=== PATIENT | male | born 1960 | race Caucasian/White ===

== ENCOUNTER → 2016-12-14 | Outpatient (CLI) | payer BC ==
[~2016-12-14] MED LIST: ACET-1256 PO; ASPEC81 PO; ASPI81TA28 PO; ATOR-24 PO; LEVAQUIN PO; LISI-729 PO; LPR25 PO; LPT40 PO; LSN5 PO; PRED5PAK3 PO; PREDPOW63 PO; RBTDAC10 PO; SYMIN160 INH; TRAM-10 PO; TRAM-453 PO
== END | disposition home or self-care (01) ==
LOC: C.LABSPEC 12:22
PROVIDERS: ATTEND Internal Medicine
DX: Z12.11 Encounter for screening for malignant neoplasm of colon (principal)

== ENCOUNTER 2017-03-23 20:48 | Emergency (ER) | payer BC ==
[~2017-03-23] VITALS: Ht 177.8 cm; Wt 100.0 kg
[~2017-03-23 20:48] MED LIST changes: -ACET-1256 PO; -ASPI81TA28 PO; -ATOR-24 PO; -LEVAQUIN PO; -LISI-729 PO; -PREDPOW63 PO; -TRAM-453 PO
[2017-03-23 20:52] VITALS: TEMP 36.8; Ht 177.8 cm; Wt 100.0 kg
[2017-03-23] MEDS ORDERED: ASPI81TA28 PO (21:11)
[2017-03-23] MEDS ORDERED: LEVAQUIN PO (21:11)
[2017-03-23] MEDS ORDERED: PREDPOW63 PO (21:11)
[2017-03-23] MEDS ORDERED: SODIUM CHLORIDE 0.9% 1000ML 1,000 ML IV SCH (21:45)
--- NOTE | 2017-03-23 22:10 | DIAGNOSTIC IMAGING REPORT ---
CHEST ONE VIEW PORTABLE HISTORY: cough COMPARISON: Chest 04/30/2016. FINDINGS: The lungs are clear. Cardiac silhouette is normal in size. No pleural effusions. No pneumothorax. IMPRESSION: No acute process. Electronically signed by: Ravi Little M.D. 03/23/2017 10:09 PM Dictated Date/Time: 03/23/2017 10:08 PM
[2017-03-23] MEDS ORDERED: IBUPROFEN 600 MG TAB PO STA (22:19)
[2017-03-23 22:20] LABS: BASO % 0.3 %; BASO ABS # 0.04 K/uL (0-0.2); COMPLETE YES; EOS % 0.8 %; HEMATOCRIT 49.7 % (42-52); IG% 0.3 %; LYMPH % 24.8 %; LYMPH ABS # 3.12 K/uL (1.2-3.4); MEAN CELL VOLUME 94.7 fL (80-100); MEAN CORPUSCULAR HGB CONC 33.8 g/dl (32-36); MEAN PLATELET VOLUME 9.4 fL (7.4-10.4); MONO % 12.7 %; NEUT % 61.1 %; PLATELET COUNT 293 K/uL (130-400); RED BLOOD COUNT 5.25 M/uL (4.7-6.1); WHITE BLOOD COUNT 12.58 K/uL (4.8-10.8)
[2017-03-23 22:32] LABS: ALT/SGPT 25 U/L (12-78); BLOOD UREA NITROGEN 19 mg/dl (7-18); BUN/CREATININE RATIO 15.9 (10-20); CARBON DIOXIDE 26 mmol/L (21-32); CHLORIDE 110 mmol/L (98-107); GLUCOSE 100 mg/dl (70-99); MAGNESIUM 2.5 mg/dl (1.8-2.4); POTASSIUM 3.9 mmol/L (3.5-5.1); SODIUM 142 mmol/L (136-145)
[2017-03-23 22:35] LABS: ALKALINE PHOSPHATASE 79 U/L (45-117); AST/SGOT 15 U/L (15-37)
[2017-03-23 22:37] LABS: CALCIUM 9.3 mg/dl (8.5-10.1)
--- NOTE | 2017-03-23 22:58 | EMERGENCY ROOM VISIT NOTE ---
History Report prepared by Titus: Ashley Garvin Under the Supervision of: Marshall PalumboO. First contact with patient: 21:38 Chief Complaint: PAIN (GENERALIZED) Stated Complaint: WEAKNESS,SICK IN STOMACH,PAIN IN SHOULDERS,ARMS,LE History of Present Illness The patient is a 56 year old male who presents to the Emergency Room with complaints of constant generalized weakness beginning last night. He states that he has muscular weakness in his legs, arms, and shoulders that is sharp and painful. The pain waxes and wanes. The patient had bronchitis over the weekend. He denies any urinary problems, coughing up, or fever. He has no known insect or tick bites. He says he has been drinking adequately, and feels hydrated. The patient was started on antibiotics and prednisone last week for cold-like symptoms. Source of History: patient Onset: last night Position: other (generalized) Quality: other (weakness) Timing: constant Associated Symptoms: No fevers, No cough, No urinary symptoms Note: The patient also complains of body pains. Review of Systems See HPI for pertinent positives and negatives. A total of ten systems were reviewed and were otherwise negative. Past Medical & Surgical Medical Problems: (1) Bronchitis (2) Hyperlipidemia (3) NSTEMI,ASTHMATIC BRONCHITIS (4) Pneumonia Family History No pertinent family history has been recorded. Social History Smoking Status: Never Smoker Alcohol Use: none Drug Use: none Marital Status: Housing Status: lives with family Occupation Status: employed Current/Historical Medications Scheduled Aspirin (Aspirin Ec), 81 MG PO DAILY Atorvastatin (Atorvastatin Calcium), 40 MG PO QAM Budesonide/Formoterol Fumarate (Symbicort 160/4.5 Inhaler ), 2 PUFFS INH QID Lisinopril (Lisinopril), 5 MG PO QAM [Levaquin], 1 TAB PO DAILY [Prednisone], 1 TAB PO DIRECTED Scheduled PRN Tramadol (Ultram), 50 MG PO Q8H PRN for Pain Allergies Coded Allergies: No Known Allergies (Verified , 03/23/17) Physical Exam Vital Signs Date Time Temp Pulse Resp B/P (MAP) Pulse Ox O2 Delivery O2 Flow Rate FiO2 03/23/17 23:43 84 18 174/110 94 Room Air 03/23/17 22:15 79 03/23/17 22:04 82 18 162/90 97 Room Air 03/23/17 22:04 Room Air 03/23/17 20:52 36.8 95 20 161/105 94 Room Air Physical Exam GENERAL: Awake, alert, well-appearing. Weakness. HENT: Normocephalic, atraumatic. Oropharynx unremarkable. EYES: Normal conjunctiva. Sclera non-icteric. NECK: Supple. No nuchal rigidity. FROM. No JVD. RESPIRATORY: Clear to auscultation. CARDIAC: Regular rate, normal rhythm. Extremities warm and well perfused. Pulses equal. ABDOMEN: Soft, non-distended. No tenderness to palpation. No rebound or guarding. No masses. RECTAL: Deferred. MUSCULOSKELETAL: Chest examination reveals no tenderness. The back is symmetrical on inspection without obvious abnormality. There is no CVA tenderness to palpation. No joint edema. Muscle aches. LOWER EXTREMITIES: Calves are equal size bilaterally and non-tender. No edema. No discoloration. NEURO: Normal sensorium. No sensory or motor deficits noted. SKIN: No rash or jaundice noted. Medical Decision & Procedures ER Provider Diagnostic Interpretation: X-ray: Per my interpretation, radiologist review. CHEST ONE VIEW PORTABLE HISTORY: cough COMPARISON: Chest 04/30/2016. FINDINGS: The lungs are clear. Cardiac silhouette is normal in size. No pleural effusions. No pneumothorax. IMPRESSION: No acute process. Electronically signed by: Ravi Little M.D. 03/23/2017 10:09 PM Dictated Date/Time: 03/23/2017 10:08 PM Laboratory Results 03/23/17 21:52 Red Blood Count 5.25, Mean Corpuscular Volume 94.7, Mean Corpuscular Hemoglobin 32.0, Mean Corpuscular Hemoglobin Concent 33.8, Mean Platelet Volume 9.4, Neutrophils (%) (Auto) 61.1, Lymphocytes (%) (Auto) 24.8, Monocytes (%) (Auto) 12.7, Eosinophils (%) (Auto) 0.8, Basophils (%) (Auto) 0.3, Neutrophils # (Auto ) 7.68, Lymphocytes # (Auto) 3.12, Monocytes # (Auto) 1.60, Eosinophils # (Auto ) 0.10, Basophils # (Auto) 0.04 03/23/17 21:52 Test 03/23/17 21:52 03/23/17 22:00 White Blood Count 12.58 K/uL (4.8-10.8) Red Blood Count 5.25 M/uL (4.7-6.1) Hemoglobin 16.8 g/dL (14.0-18.0) Hematocrit 49.7 % (42-52) Mean Corpuscular Volume 94.7 fL (80-100) Mean Corpuscular Hemoglobin 32.0 pg (25-34) Mean Corpuscular Hemoglobin Concent 33.8 g/dl (32-36) Platelet Count 293 K/uL (130-400) Mean Platelet Volume 9.4 fL (7.4-10.4) Neutrophils (%) (Auto) 61.1 % Lymphocytes (%) (Auto) 24.8 % Monocytes (%) (Auto) 12.7 % Eosinophils (%) (Auto) 0.8 % Basophils (%) (Auto) 0.3 % Neutrophils # (Auto) 7.68 K/uL (1.4-6.5) Lymphocytes # (Auto) 3.12 K/uL (1.2-3.4) Monocytes # (Auto) 1.60 K/uL (0.11-0.59) Eosinophils # (Auto) 0.10 K/uL (0-0.5) Basophils # (Auto) 0.04 K/uL (0-0.2) RDW Standard Deviation 41.9 fL (36.4-46.3) RDW Coefficient of Variation 12.2 % (11.5-14.5) Immature Granulocyte % (Auto) 0.3 % Immature Granulocyte # (Auto) 0.04 K/uL (0.00-0.02) Urine Color YELLOW Urine Appearance CLEAR (CLEAR) Urine pH 8.5 (4.5-7.5) Urine Specific Tate 1.020 (1.000-1.030) Urine Protein NEG (NEG) Urine Glucose (UA) NEG (NEG) Urine Ketones NEG (NEG) Urine Occult Blood NEG (NEG) Urine Nitrite NEG (NEG) Urine Bilirubin NEG (NEG) Urine Urobilinogen NEG (NEG) Urine Leukocyte Esterase NEG (NEG) Anion Gap 6.0 mmol/L (3-11) Est Creatinine Clear Calc Drug Dose 81.5 ml/min Estimated GFR () 77.9 Estimated GFR (Non- 67.2 BUN/Creatinine Ratio 15.9 (10-20) Calcium Level 9.3 mg/dl (8.5-10.1) Magnesium Level 2.5 mg/dl (1.8-2.4) Total Bilirubin 0.5 mg/dl (0.2-1) Direct Bilirubin < 0.1 mg/dl (0-0.2) Aspartate Amino Transf (AST/SGOT) 15 U/L (15-37) Alanine Aminotransferase (ALT/SGPT) 25 U/L (12-78) Alkaline Phosphatase 79 U/L (45-117) Total Protein 6.8 gm/dl (6.4-8.2) Albumin 3.9 gm/dl (3.4-5.0) Bedside Lactic Acid Venous 0.67 mmol/L (0.90-1.70) Laboratory results reviewed by me Medications Administered Medications (Trade) Dose Ordered Sig/Donell Route Start Time Stop Time Status Last Admin Dose Admin Sodium Chloride 1,000 ml @ 999 mls/hr Q1H1M IV 03/23/17 21:45 04/22/17 21:44 03/23/17 22:15 999 MLS/HR Ibuprofen (Motrin Tab) 600 mg NOW STAT PO 03/23/17 22:19 03/23/17 22:20 DC 03/23/17 22:28 600 MG Tramadol HCl (Ultram Tab) 50 mg NOW STAT PO 03/23/17 23:31 03/23/17 23:32 DC 03/23/17 23:42 50 MG Tramadol HCl (Ultram Home Pack) 1 homepack UD ONCE PO 03/24/17 00:30 03/24/17 00:31 DC 03/24/17 00:27 1 HOMEPACK ECG Indication: other (arm pain) Rate (beats per minute): 69 Rhythm: normal sinus Findings: no acute ischemic change, left axis deviation, other (normal intervals) ED Course 2138: The patient was evaluated in room B5. A complete history and physical exam was performed. 2144: Ordered Sodium Chloride 1,000 ml @ 999 mls.hr IV. 2218: Ordered Ibuprofen 600 mg PO. 2230: Ordered Tramadol HCl 50 mg PO. 9: I reevaluated the patient. Discussed results and discharge instructions: He verbalized understanding and agreement. The patient is ready for discharge. Medical Decision Differential diagnoses include but are not limited to; bronchitis, pneumonia, viral syndrome, dehydration, and metabolic syndrome. Patient was given IV fluids, patient was given pain medicine as well as Motrin. Patient's labs appear relatively normal. Patient was started on Ultram. I discussed evaluation with the patient he is going to hold Levaquin and follow- up with his primary care physician this week. Impression Primary Impression: Myalgia Scribe Attestation The scribe's documentation has been prepared under my direction and personally reviewed by me in its entirety. I confirm that the note above accurately reflects all work, treatment, procedures, and medical decision making performed by me. Departure Information Dispostion Home / Self-Care Prescriptions Tramadol Hcl (ULTRAM) 50 Mg Tab 50 MG PO Q8H for 5 Days, #15 TAB PRN PAIN Prov: David Burton, DO 03/24/17 Referrals Darrell Cortez M.D. (PCP) Patient Instructions ED Muscle Aching, My [facility]
[2017-03-23 23:19] LABS: URINE APPEARANCE CLEAR (CLEAR); URINE BILIRUBIN NEG (NEG); URINE COLOR YELLOW; URINE NITRITE NEG (NEG); URINE PH 8.5 (4.5-7.5); UROBILINOGEN NEG (NEG)
[2017-03-23 23:25] LABS: MANUAL MICROSCOPIC REQUIRED? NO; REVIEW REQ? NO
[2017-03-23] MEDS ORDERED: TRAMADOL HCL 50 MG TAB PO STA (23:31)
[2017-03-24] MEDS ORDERED: TRAMADOL HCL 50 MG HOME PACK PO ONE (00:30)
[2017-03-24 00:40] VITALS: BP 169/93; PULSE 78; O2SAT 94
[2017-03-24] MEDS ORDERED: TRAM-453 PO (00:41)
== END 2017-03-24 00:40 | disposition home or self-care (01) ==
LOC: C.EDB 20:50
DX: M79.1 Myalgia (principal); E78.5 Hyperlipidemia, unspecified; Z87.01 Personal history of pneumonia (recurrent); I25.2 Old myocardial infarction; J45.909 Unspecified asthma, uncomplicated; Z79.82 Long term (current) use of aspirin; Z79.899 Other long term (current) drug therapy

== ENCOUNTER 2017-06-18 10:13 | Emergency (ER) | payer BC ==
[~2017-06-18] VITALS: Ht 177.8 cm; Wt 103.0 kg
[~2017-06-18 10:13] MED LIST changes: -ASPEC81 PO; +ASPI81TA28 PO; +LEVAQUIN PO; -LPR25 PO; -PRED5PAK3 PO; +PREDPOW63 PO; -RBTDAC10 PO
[2017-06-18] MEDS ORDERED: ONDANSETRON INJ 2 MG/ML 2 ML VIAL IV STA (10:22)
[2017-06-18] MEDS ORDERED: SODIUM CHLORIDE 0.9% 1000ML 1,000 ML IV STA (10:22)
[2017-06-18] MEDS ORDERED: FENTANYL CITRATE INJ 50 MCG/1 ML 2 ML VIAL ONE (10:24)
[2017-06-18 10:30] VITALS: O2SAT 97; Ht 177.8 cm; Wt 103.0 kg
[2017-06-18] MEDS ORDERED: OPTIRAY 320 IV PRN (10:45)
[2017-06-18] MEDS: FENTANYL CITRATE INJ 50 MCG/1 ML 2 ML VIAL IV PRN ×2 (10:46→11:27)
[2017-06-18 10:47] LABS: ISTAT CREATININE 1.2 mg/dl (0.6-1.3); ISTAT HEMOGLOBIN 15.3 g/dl (14.0-18.0); ISTAT IONIZED CALCIUM 1.2 mmol/l (1.12-1.32)
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
[2017-06-18 10:52] LABS: BASO % 0.1 %; BASO ABS # 0.02 K/uL (0-0.2); COMPLETE YES; EOS % 1.4 %; HEMATOCRIT 46.4 % (42-52); IG% 0.9 %; LYMPH % 19.4 %; LYMPH ABS # 2.95 K/uL (1.2-3.4); MEAN CELL VOLUME 96.1 fL (80-100); MEAN CORPUSCULAR HEMOGLOBIN 32.7 pg (25-34); MEAN CORPUSCULAR HGB CONC 34.1 g/dl (32-36); MEAN PLATELET VOLUME 9.4 fL (7.4-10.4); MONO % 6.3 %; NEUT % 71.9 %; PLATELET COUNT 232 K/uL (130-400); RED BLOOD COUNT 4.83 M/uL (4.7-6.1)
[2017-06-18 11:00] LABS: PARTIAL THROMBOPLASTIN RATIO 0.9; PROTHROMBIN TIME (PATIENT) 10.6 SECONDS (9.0-12.0)
[2017-06-18] MEDS ORDERED: METHYLPREDNISOLONE 125 MG VIAL IV STA (11:15)
[2017-06-18] MEDS ORDERED: ALBUT/IPRATROP 3MG/0.5MG NEB 3 ML VIAL INH STA (11:15)
[2017-06-18 11:21] LABS: ISTAT CREATININE 1.1 mg/dl (0.6-1.3); ISTAT HEMOGLOBIN 15.3 g/dl (14.0-18.0); ISTAT IONIZED CALCIUM 1.2 mmol/l (1.12-1.32)
[2017-06-18] MEDS ORDERED: ACET-1256 PO (11:22)
[2017-06-18] MEDS ORDERED: LISI-729 PO (11:22)
[2017-06-18] MEDS ORDERED: ATOR-24 PO (11:23)
[2017-06-18 11:24] LABS: ALKALINE PHOSPHATASE 79 U/L (45-117); ALT/SGPT 105 U/L (12-78); AST/SGOT 128 U/L (15-37); BLOOD UREA NITROGEN 13 mg/dl (7-18); BUN/CREATININE RATIO 10.5 (10-20); CALCIUM 8.7 mg/dl (8.5-10.1); CARBON DIOXIDE 27 mmol/L (21-32); CHLORIDE 108 mmol/L (98-107); CKMB/CK RATIO 2.6 (0-3.0); GLUCOSE 176 mg/dl (70-99); SODIUM 142 mmol/L (136-145)
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
[2017-06-18] MEDS: HYDROmorphone INJ 1 MG/ML SYR IV PRN ×6 (11:48→14:23)
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
[2017-06-18 14:30] VITALS: BP 110/78; PULSE 90; TEMP 36.8; O2SAT 99
--- NOTE | 2017-06-18 16:28 | EMERGENCY ROOM VISIT NOTE ---
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 pulmonary contusion. The patient has an extensive cardiac history and had a syncopal episode. He will need admission to the hospital but given the traumatic findings he will need referral to trauma center. I discussed this with the patient and family. They elected to go to [facility].I gave my usual and customary discussion regarding this issue. Interfacility medical command done by me. The patient will be transferred via ALS ground. Consultation: A consultation was placed with [facility], . The case was discussed and diagnostics were reviewed. The patient was accepted in trauma transfer. Medication Reconcilliation Current Medication List: was personally reviewed by me Blood Pressure Screening Patient's blood pressure: Elevated blood pressure Blood pressure disposition: Elevated BP felt to be situational Consults Time Called: 1245 Consulting Physician: Dr. Mayorga [facility] Trauma Returned Call: 1247 I discussed the patient's case with Dr. Mayorga, [facility] Trauma. He understands the patient's condition and accepts the patient. The patient will be further evaluated. Impression Primary Impression: Syncope Additional Impressions: Multiple fractures of ribs of left side Multiple fractures of ribs of right side Sternal fracture Pneumothorax, left Fracture of left clavicle Critical Care I have personally spent greater than 30 minutes of critical care time in the direct management of this patient. This includes bedside care, interpretation of diagnostic studies, and testing, discussion with consultants, patient, and family members, and other required patient management activities. This 30 minutes is in excess of all separately billable procedures. Scribe Attestation The scribe's documentation has been prepared under my direction and personally reviewed by me in its entirety. I confirm that the note above accurately reflects all work, treatment, procedures, and medical decision making performed by me. Departure Information Dispostion Discharge/Transfer to [facility] Referrals Darrell Cortez M.D. (PCP) Problem Qualifiers
== END 2017-06-18 14:28 | disposition short-term general hospital (02) ==
LOC: EDBD 10:13 → C.EDB 10:14 → C.ED 14:28
DX: R55 Syncope and collapse (principal); S22.43XA Multiple fractures of ribs, bilateral, initial encounter for closed fracture; S22.20XA Unspecified fracture of sternum, initial encounter for closed fracture; S42.002A Fracture of unspecified part of left clavicle, initial encounter for closed fracture; S27.0XXA Traumatic pneumothorax, initial encounter; V47.5XXA Car driver injured in collision with fixed or stationary object in traffic accident, initial encounter; Y92.410 Unspecified street and highway as the place of occurrence of the external cause; I25.2 Old myocardial infarction; E78.5 Hyperlipidemia, unspecified; Z87.01 Personal history of pneumonia (recurrent); Z79.82 Long term (current) use of aspirin; Z79.899 Other long term (current) drug therapy

== ENCOUNTER 2017-08-03 06:29 | Day surgery (SDC) | payer BC ==
[~2017-08-03] VITALS: Ht 177.8 cm; Wt 97.7 kg
[~2017-08-03 06:29] MED LIST changes: +ACET-1256 PO; +ATOR-24 PO; +LACTATED RINGER'S 1000ML IV SCH; -LEVAQUIN PO; +LISI-729 PO; -LPT40 PO; -LSN5 PO; -PREDPOW63 PO
[2017-08-03] MEDS ORDERED: NICO14DI9 TOP (07:28)
[2017-08-03 07:32] VITALS: BP 124/81; PULSE 69; TEMP 36.7; O2SAT 95; Ht 177.8 cm; Wt 97.7 kg
--- NOTE | 2017-08-03 07:43 | History & Physical Bridge Note ---
H&P Re-Evaluation Bridge Note: I have examined the patient, reviewed the History & Physical and in the interval since the performance of the History & Physical I have noted the following changes of clinical significance: No changes noted
[2017-08-03] MEDS ORDERED: LIDOCAINE HCL 1% 20 ML VIAL ONE (09:19)
--- NOTE | 2017-08-03 09:31 | Discharge Instructions ---
Discharge Instructions Procedure Procedure Date: Aug 03, 2017. Reason for Visit: Syncope. Discharge Discharge Date: Aug 03, 2017. Discharge Diagnosis: SYNCOPE Last Recorded Wt (Kilograms): 97.7 Anesthesia Post Anesthesia Instructions: If you have had General Anesthesia or IV Sedation: * Do not drive today. * Resume driving when surgeon permits. * Do not make important decisions or sign legal documents today. * Call surgeon for: 1. Temperature elevations greater than 101 degrees F. 2. Uncontrollable pain. 3. Excessive bleeding. 4. Persistent nausea and vomiting. 5. Medication intolerance (nausea, vomiting or rash). * For nausea and vomiting use only clear liquids such as: tea, soda, bouillon until nausea subsides, then gradually increase diet as tolerated. * If you have any concerns or questions, call your surgeon's office. If physician is unavailable and it is an emergency, call 911 or go to the nearest emergency room. Instructions Activity Recommendations: shower/bathe limit Return to School/Work: with no limitations Recommended Home Diet: low sodium Allergies: Coded Allergies: Levofloxacin (Verified Allergy, Severe, N/V, SEVERE LEG CRAMPS, 08/03/17) Provider Instructions keep wound dry and steri-strip intact until f/u in clinic. May remove outer bulky dressing in AM Follow Up Mindi Unger Recommendations: Call your doctor if: * Temperature above 101 degrees * Pain not relieved by pain medicine ordered * There is increased drainage or redness from any incision * You have any unanswered questions or concerns. Your Doctors Instructions noted above were prepared by provider Ciro Hernandez. Patient Signature Section: Patient Instructions Signature Page Gildardo Bergman Patient (or Guardian) Signature/Date: I have read and understand the instructions given to me by my caregivers. Caregiver/RN/Doctor Signature/Date: The above-named patient and/or guardian has received patient instructions on this date. + Original Patient Signature Page (only) stays with chart. Please make copy for patient.
[2017-08-03 09:35] VITALS: BP 144/87; PULSE 65; TEMP 36.7; O2SAT 95
--- NOTE | 2017-08-03 17:51 | Procedure Note ---
Procedure Note Date of Service Aug 03, 2017. Procedure Note Procedure performed: Implantation of patient activated loop recorder Staff hand screen printer Yunior Hernandez MD Indication: Patient is a 57-year-old gentleman with a history of syncope and resultant trauma. Based on the unknown etiology for his episode in the infrequent nature of his symptoms, he was advised to consider implantation of loop recorder for diagnosis. Procedure in detail: The patient was informed of the risks benefits and alternatives to the intended procedure. He understood such which proceed. He was taken to the electrophysiology suite where the upper chest area was prepped and draped in usual sterile fashion. An area of left lateral to the sternum in the 4th intercostal space was subsequently anesthetized using subcutaneous administration of lidocaine solution. A small incision was made at this site and implantation of the loop recorder was accomplished using a proprietary implantation tool. The resulting small incision was closed with a single 4 0 Vicryl suture. Steri-Strips and a sterile dressing were applied. The device was tested noninvasively prior to conclusion of the procedure. The patient tolerated the procedure well. There were no immediate complications. Equipment used: Patient activated loop recorder: [employer]. Model number: [id number]. Serial number: [id number] Impression Successful implantation of patient activated loop recorder
== END 2017-08-03 09:53 | disposition home or self-care (01) ==
LOC: C.ACU 06:29
PROVIDERS: ATTEND Internal Medicine Clinical Cardiac Electrophysiology
DX: R55 Syncope and collapse (principal); I25.10 Atherosclerotic heart disease of native coronary artery without angina pectoris; E78.00 Pure hypercholesterolemia, unspecified; E78.5 Hyperlipidemia, unspecified; Z79.82 Long term (current) use of aspirin; Z86.010 Personal history of colon polyps; Z87.891 Personal history of nicotine dependence

== ENCOUNTER → 2017-08-27 | Outpatient (CLI) | payer BC ==
[~2017-08-27] MED LIST changes: -LACTATED RINGER'S 1000ML IV SCH; +NICO14DI9 TOP
== END | disposition home or self-care (01) ==
LOC: C.LABSPEC 15:40
PROVIDERS: ATTEND Internal Medicine
DX: Z12.11 Encounter for screening for malignant neoplasm of colon (principal)

== ENCOUNTER 2024-08-10 19:41 | Inpatient (IN) ==
[2024-08-10 20:31] LABS: Basophils # (auto) 0.09 K/uL (0.00-0.20); Basophils % (auto) 0.8 %; Eosinophils # (auto) 0.65 K/uL (0.00-0.50); Eosinophils % (auto) 5.9 %; Hematocrit (blood only) 47.8 % (42.0-52.0); Hemoglobin 15.7 g/dl (14.0-18.0); Immature Granulocytes # (auto) 0.07 K/uL (0.01-0.20); Immature Granulocytes % (auto) 0.6 %; Lymphocytes # (auto) 2.08 K/uL (1.20-3.40); Mean Corpuscular Hemoglobin 30.4 pg (25.0-34.0); Mean Corpuscular Hgb Conc 32.8 g/dL (32.0-36.0); Mean Corpuscular Volume 92.5 fL (80.0-100.0); Mean Platelet Volume 9.5 fL (9.4-12.4); Monocytes # (auto) 0.79 K/uL (0.11-0.59); Monocytes % (auto) 7.2 %; Neutrophils # (auto) 7.27 K/uL (1.40-6.50); Neutrophils % (auto) 66.5 %; Platelet Count 281 K/uL (130-400); RDW Coefficient of Variation 12.9 % (11.5-14.5); RDW Standard Deviation 43.4 fL (36.4-46.3); Red Blood Count 5.17 M/uL (4.70-6.10); White Blood Count 10.95 K/ul (4.8-10.8)
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
[2024-08-10] MEDS: fentaNYL citrate PF 100 MCG/2 ML VIAL IV STA (20:36)
[2024-08-10 20:49] LABS: Albumin Globulin Ratio 1.4 (0.9-2); Albumin Level 4.1 gm/dl (3.4-5.0); BUN Creatinine Ratio 10.8 (10-20); Bilirubin,Total 0.4 mg/dl (0.2-1.0); Potassium 3.8 mmol/L (3.5-5.1); Total Protein 7.1 gm/dl (6.0-8.3)
[2024-08-10 20:56] LABS: INR 0.9 (0.9-1.1); Prothrombin Time 10.3 Seconds (9.0-12.0)
[2024-08-10] MEDS: OPTIRAY 320 100ml IV ONE (21:08)
[2024-08-10 21:21] LABS: Adenovirus PCR Not Detected (NotDetected); Bordetella parapertussis PCR Not Detected (NotDetected); Bordetella pertussis PCR Not Detected (NotDetected); Chlamydia pneumoniae PCR Not Detected (NotDetected); Coronavirus 229E PCR Not Detected (NotDetected); Coronavirus CoV-2 (COVID19)PCR Not Detected (NotDetected); Coronavirus HKU1 PCR Not Detected (NotDetected); Coronavirus NL63 PCR Not Detected (NotDetected); Coronavirus OC43PCR Not Detected (NotDetected); Human Metapneumovirus PCR Not Detected (NotDetected); Influenza A PCR Not Detected (NotDetected); Influenza B PCR Not Detected (NotDetected); Mycoplasma pneumoniae PCR Not Detected (NotDetected); Parainfluenza Virus 1 PCR Not Detected (NotDetected); Parainfluenza Virus 2 PCR Not Detected (NotDetected); Parainfluenza Virus 3 PCR Not Detected (NotDetected); Parainfluenza Virus 4 PCR Not Detected (NotDetected); Respiratory Syncytial VirusPCR Not Detected (NotDetected); Rhinovirus/Enterovirus PCR DETECTED (NotDetected)
--- NOTE | 2024-08-10 22:06 | CT Scan Report ---
Exam(s): CT ABDOMEN + PELVIS With Contrast IV Amt: 94ml optiray 320 EXAM: CT Abdomen and Pelvis With Intravenous Contrast CLINICAL HISTORY: Reason for exam: periumbilical abd pain. TECHNIQUE: Axial computed tomography images of the abdomen and pelvis with intravenous contrast. Automated exposure control was utilized for the study. A dose lowering technique was utilized adhering to the principles of ALARA. CONTRAST: Patient received 94ml optiray 320 of IV contrast COMPARISON: CT abdomen pelvis 02/20/22. FINDINGS: Lung bases: Clear. Liver: Severe fatty infiltration again noted. Gallbladder and bile ducts: Normal, contracted gallbladder. No ductal dilation. Pancreas: No ductal dilation. Spleen: Unremarkable. Adrenals: Unremarkable. Kidneys and ureters: No pyelonephritis or hydronephrosis. Stomach and bowel: Moderate fecal loading of the colon. Fairly collapsed right and transverse colon, wall thickening may be artifact, cannot rule out mild colitis. No obstruction. Appendix: Not seen, no secondary signs of acute appendicitis. Intraperitoneal space: No free air or fluid. Bones/joints: No acute fracture. Soft tissues: Complex fat-containing umbilical hernia, has increased in size, measures 5 x 4 x 3.2 cm, and now contains moderate haziness, within the hernia as well as in the adjacent mesenteric fat. Nonspecific, probable incarcerated hernia. No bowel containing hernia. Vasculature: No aortic aneurysm. Lymph nodes: No enlarged lymph nodes. Bladder: No stones. Reproductive: Unremarkable as visualized. IMPRESSION: 1. Increased size of the fat-containing umbilical hernia, now containing fatty stranding, nonspecific, probable incarcerated hernia. No bowel containing hernia. 2. Equivocal right-sided colitis versus artifact from under distention. Electronically signed by: Dayanara Cowan M.D. 08/10/24 22:04 PM
[2024-08-10] MEDS: MoRPHine SULFATE 4 MG/ML 1 ML CARP\\VIAL IV STA (23:10)
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
[2024-08-10] MEDS ORDERED: ACETAMINOPHEN 1,000 MG/100 ML VIAL IV PRN (23:24)
[2024-08-10] MEDS ORDERED: hydrALAZINE HCL 20 MG/ML VIAL IV PRN (23:29)
[2024-08-10] MEDS ORDERED: ONDANSETRON INJ 2 MG/ML 2 ML VIAL IV PRN (23:30)
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
[2024-08-11] MEDS: LACTATED RINGER'S 1,000 ML IV STA (00:07)
[2024-08-11] MEDS: PANTOprazole 40 MG/10 ML SYR IV STA (00:07)
[2024-08-11] MEDS: PIPERACILLIN/TAZOBACTAM 4.5 GM/100 ML BAG IV STA (00:07)
[2024-08-11] MEDS: ALBUT/IPRATROP 3MG/0.5MG NEB 3 ML VIAL NEB PRN (00:07)
[2024-08-11] MEDS: HYDROmorphone INJ 0.5 MG/0.5 ML SYR IV PRN ×2 (01:18→04:28)
[2024-08-11 06:08] LABS: Basophils # (auto) 0.09 K/uL (0.00-0.20); Basophils % (auto) 0.7 %; Eosinophils # (auto) 0.72 K/uL (0.00-0.50); Eosinophils % (auto) 5.9 %; Hematocrit (blood only) 44.4 % (42.0-52.0); Hemoglobin 14.8 g/dl (14.0-18.0); Immature Granulocytes # (auto) 0.07 K/uL (0.01-0.20); Immature Granulocytes % (auto) 0.6 %; Lymphocytes # (auto) 2.02 K/uL (1.20-3.40); Lymphocytes % (auto) 16.6 %; Mean Corpuscular Hemoglobin 30.9 pg (25.0-34.0); Mean Corpuscular Hgb Conc 33.3 g/dL (32.0-36.0); Mean Corpuscular Volume 92.7 fL (80.0-100.0); Mean Platelet Volume 9.6 fL (9.4-12.4); Monocytes # (auto) 1.12 K/uL (0.11-0.59); Monocytes % (auto) 9.2 %; Neutrophils # (auto) 8.18 K/uL (1.40-6.50); Platelet Count 280 K/uL (130-400); RDW Coefficient of Variation 12.9 % (11.5-14.5); RDW Standard Deviation 44.2 fL (36.4-46.3); Red Blood Count 4.79 M/uL (4.70-6.10)
[2024-08-11] MEDS: PIPERACILLIN/TAZOBACTAM 4.5 GM/100 ML BAG IV SCH (06:37)
[2024-08-11 06:57] LABS: Albumin Level 3.9 gm/dl (3.4-5.0); Bilirubin,Total 0.8 mg/dl (0.2-1.0); Calcium 8.8 mg/dl (8.6-10.3); Creatinine Clr Calc Pharmacy 65.5 ml/min; Magnesium 2.2 mg/dl (1.7-2.4); Potassium 4.2 mmol/L (3.5-5.1)
[2024-08-11 07:30] LABS: Albumin Globulin Ratio 1.4 (0.9-2); BUN Creatinine Ratio 13.7 (10-20); Globulin 2.7 gm/dl (2.5-4.0); Total Protein 6.6 gm/dl (6.0-8.3)
[2024-08-11] MEDS: PANTOprazole 40 MG/10 ML SYR IV SCH (08:02)
[2024-08-11 08:28] LABS: Appearance Urine Clear (Clear); Bacteria Urine Automated None Seen (None Seen); Bilirubin Urine Negative (Negative); Blood Urine Negative (Negative); Cast Urine Automated 0-2 /lpf (0-2); Color Urine Yellow; Epithelial Cell Urine Auto 0-2 /hpf (0-2); Glucose Urine UA Negative (Negative); Ketones Urine Trace (Negative); Leukocyte Esterase Urine Negative (Negative); Nitrite Urine Negative (Negative); Protein Urine Trace (Negative); RBC Urine Automated 0-2 /hpf (0-2); Specific Gravity Urine > 1.045 (1.000-1.030); Urobilinogen Urine Negative (Negative); WBC Urine Automated 0-5 /hpf (0-5)
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
--- NOTE | 2024-08-11 09:54 | Surgery Progress Note ---
Date of Service August 11, 2024 Assessment & Plan (1) Recurrent ventral hernia with incarceration: Plan: His CT images and results were personally viewed and interpreted by myself He does have about a 3-1/2 cm incarcerated recurrent ventral hernia Due to the amount of pain he is having and the likely fat stranding/fat necrosis seen on CT we will proceed with repair today Will plan on open recurrent incarcerated ventral hernia repair, possible mesh Consent was obtained, risks discussed including bleeding, infection, recurrence, seroma/hematoma formation, injury to surrounding structures Admission and Anticipated Discharge Date Admission Date: August 10, 2024 Subjective Patient seen and examined. Still with some abdominal pain. Denies any nausea or vomiting. Afebrile. Review of Systems Constitutional: no fever and no chills Respiratory: no cough and no dyspnea Cardiovascular: no chest pain and no dyspnea on exertion Gastrointestinal: + abdominal pain; no nausea, no vomiting , no constipation and no diarrhea/loose stools Genitourinary: no dysuria or no urinary incontinence Musculoskeletal: no back pain and no neck pain Integumentary: no acne and no lesions Psychiatric: no behavioral changes and no depression Physical Exam Constitutional: WD/WN, vitals as above Eyes: PERRL, conjunctivae normal, anicteric sclerae Respiratory: normal respiratory effort, lungs clear to auscultation Cardiovascular: RRR, no murmur, no edema Gastrointestinal (Abdomen): Inspection/Auscultation: abdomen normal to inspection; abdomen not distended Percussion/Palpation: + abdomen tender, abdomen soft and + hernia (Incarcerated ventral hernia just above the umbilicus); no guarding Musculoskeletal: no cyanosis or clubbing, extremities motor strength 5/5 Skin: no rashes, warm and dry Neurologic: PERRL, EOMI, accommodation nl, no face palsy, no dysarthria Psychiatric: A+Ox3, euthymic affect Results & Data Vital Signs (Past 12 Hours) Vital Signs Temp Pulse Pulse Resp BP BP Pulse Ox 08/11/24 07:40 36.4 C L 80 20 135/79 92 08/11/24 00:45 36.8 C 92 H 20 153/87 H 95 08/11/24 00:36 89 18 93 08/11/24 00:06 89 22 94 08/10/24 23:51 93 H 19 95 08/10/24 23:03 98 H 21 139/102 H 95 08/10/24 23:00 139/102 H 08/10/24 23:00 139/102 H 08/10/24 22:30 95 H 17 95 08/10/24 22:00 95 H 18 137/86 95 O2 Del Method 08/11/24 07:40 Room Air 08/11/24 00:45 Room Air 08/11/24 00:36 08/11/24 00:06 08/10/24 23:51 08/10/24 23:03 08/10/24 23:00 08/10/24 23:00 08/10/24 22:30 08/10/24 22:00 Room Air PG Care Time/CCT Total # of Minutes Spent Total Time Spent with Patient: Total time spent is greater than 50% in coordination of care (as documented) at patient's floor/unit and/or counseling patient: Coding Level of Care Code 52821 SUB INP/OBS CARE 2/35MIN Diagnoses Recurrent ventral hernia with incarceration K43.0
[2024-08-11] MEDS ORDERED: LIDOCAINE 2% 2 ML VIAL/AMP(20MG/ML) INFIL ONE (10:20)
[2024-08-11] MEDS ORDERED: ONDANSETRON INJ 2 MG/ML 2 ML VIAL ONE (10:20)
[2024-08-11] MEDS ORDERED: ROCURONIUM BROMIDE 10 MG/ML 5 ML VIAL IV ONE ×2 (10:20→11:07)
[2024-08-11] MEDS ORDERED: SUCCINYLCHOLINE CHLORIDE 20 MG/ML 10 ML VIAL IV ONE (10:20)
[2024-08-11] MEDS ORDERED: PROPOFOL IV EMULSION 10 MG/ML 20 ML VIAL IV ONE (10:20)
[2024-08-11] MEDS ORDERED: fentaNYL citrate PF 100 MCG/2 ML VIAL ONE (10:20)
[2024-08-11] MEDS ORDERED: MIDAZOLAM HCL 1 MG/ML 2ML VIAL ONE (10:20)
[2024-08-11] MEDS ORDERED: ALBUTEROL 0.083% NEBU SOLN 3 ML VIAL NEB PRN (10:24)
[2024-08-11] MEDS ORDERED: ATROPINE SULFATE 0.1 MG/ML 10ML SYR IV PRN (10:34)
[2024-08-11] MEDS ORDERED: PROMETHAZINE HCL 6.25 MG in SODIUM CHLORIDE 0.9% 50 ML IV PRN (10:34)
[2024-08-11] MEDS ORDERED: ONDANSETRON INJ 2 MG/ML 2 ML VIAL IV PRN (10:34)
--- NOTE | 2024-08-11 10:35 | Hospitalist Progress Note ---
Date of Service August 11, 2024 Assessment & Plan (1) Incarcerated umbilical hernia: Plan: 64 y/o admitted with incarcerated umbilical hernia, non-reducible. Remains painful and tender. History of robotic assisted laparoscopic umbilical hernia repair with mesh on 03/08/[address] Llamas -currently on pip-tazo and IV fluids, IV PPI -clarify with surgeon whether antibiotics are necessary, seems unlikely since hernia is fat-containing but no bowel incarceration -planned for operative repair today He has some wheezing related to rhinovirus/enterovirus infection setting of underlying COPD. Responded extremely well to neb last night but none given since then He has good air movement on exam and is not short of breath or hypoxic -ordered duoneb for now and put on q4h schedule during perioperative period, albuterol neb PRN -no steroids necessary at this time and risks outweigh benefits He has history of mild nonobstructive CAD on cath in 2016 done for nstemi. Normal EF but no recent Echo in system. I personally reviewed EKG tracing has normal sinus rhythm, leftward axis, no acute ST changes He had chest pain a year ago but this was related to gastric ulcer and heartburn type symptoms nearly resolved with PPI treatment. Occasionally gets mild heartburn pain lower central chest followed by mild nausea, this tends to occur at rest or randomly. He does not get exertional chest pain. He is able to exercise >4 METS - mows his lawn with walking mower, can go up 2 flights of stairs though does have dyspnea. No history of congestive heart failure. By RCRI he is a 0 or a 1, depending on whether you count the mild CAD. By NSQUIP he is slightly above average surgical risk. I ordered his usual metoprolol to be given this AM. BP not elevated so I did not order the lisinopril right now but should be resumed postoperatively. Atorvastatin and ASA should be continued I see no medical contraindications to proceeding as planned. I discussed with him and his that he has elevated risk of cardiac or pulmonary complication because of his history of CAD, COPD and mild viral infection. (2) Rhinovirus infection: Plan: With underlying COPD Mild wheezing as above (3) Gastric ulcer: Plan: History of gastric ulcer and GERD with esophagitis - symptomatically much improved over past year Continue PPI (4) Hypertension: Plan: Continue metoprolol, lisinopril, amlodipine postop (5) Coronary artery disease: Plan: See above Admission and Anticipated Discharge Date Admission Date: August 10, 2024 Subjective mildly wheezy this am but not short of breath breathing improved since yesterday neb yesterday helped a lot but none given since then Results & Data Results & Data Vital Signs (Past 12 Hours) Vital Signs Temp Pulse Pulse Resp BP BP Pulse Ox 08/11/24 07:40 36.4 C L 80 20 135/79 92 08/11/24 00:45 36.8 C 92 H 20 153/87 H 95 08/11/24 00:36 89 18 93 08/11/24 00:06 89 22 94 08/10/24 23:51 93 H 19 95 08/10/24 23:03 98 H 21 139/102 H 95 08/10/24 23:00 139/102 H 08/10/24 23:00 139/102 H 08/10/24 22:30 95 H 17 95 O2 Del Method 08/11/24 07:40 Room Air 08/11/24 00:45 Room Air 08/11/24 00:36 08/11/24 00:06 08/10/24 23:51 08/10/24 23:03 08/10/24 23:00 08/10/24 23:00 08/10/24 22:30 Laboratory Results 08/11/24 05:46 08/11/24 05:46 PG Care Time/CCT Total # of Minutes Spent Total Time Spent with Patient: Total time spent is greater than 50% in coordination of care (as documented) at patient's floor/unit and/or counseling patient: Coding Level of Care Code 49685 SUB INP/OBS CARE 3/50MIN Diagnoses Incarcerated umbilical hernia K42.0 Rhinovirus infection B34.8 Gastric ulcer K25.9 Hypertension I10 Coronary artery disease I25.10
[2024-08-11] MEDS ORDERED: ceFAZolin 330 MG/ML 1 GM VIAL ONE (10:55)
[2024-08-11] MEDS: ceFAZolin 3000MG 3,000 MG/72.5 ML BAG IV ONE (10:55)
[2024-08-11] MEDS ORDERED: PHENYLEPHRINE HCL 10 MG/ML VIAL ONE (11:01)
[2024-08-11] MEDS ORDERED: ePHEDrine sulfate 50 MG/5 ML SYR ONE (11:01)
[2024-08-11] MEDS: ALBUT/IPRATROP 3MG/0.5MG NEB 3 ML VIAL NEB STA (11:16)
[2024-08-11] MEDS ORDERED: SUGAMMADEX SODIUM 200 MG/2 ML VIAL IV ONE (11:34)
[2024-08-11] MEDS: BUPIVACAINE/EPINEPHRINE 0.25% 1:200,000 30 ML VIAL ONE (11:40)
[2024-08-11] MEDS: METOPROLOL TARTRATE 25 MG TAB PO ONE (11:45)
--- NOTE | 2024-08-11 11:46 | Post Operative Brief Note ---
PG Immediate Post Op with CF Date of Surgery August 11, 2024 Pre & Post Diagnosis Operation Date: 08/11/24 12:00 Pre-Op Diagnosis: 1. Recurrent ventral hernia with incarceration Post-Op Diagnosis: 1. Recurrent ventral hernia with incarceration I identified the patient and participated in the time-out.: Yes Procedure Operation Date: 08/11/24 12:00 Actual Procedures p Incarcerated recurrent ventral Hernia Repair 3.5cm (Not Applicable) - Lino Llamas DO Surgeon Lino Llamas DO Track Production Engineer None Estimated Blood Loss 10 Findings See Below 3.5 cm incarcerated ventral hernia containing omentum Specimens Specimen Description: A. Hernia Sac and Contents Anesthesia Type General Complications none Disposition Disposition: Recovery Room
--- NOTE | 2024-08-11 11:50 | Operative Report ---
PG Post Operative Report Pre & Post Diagnosis Operation Date: 08/11/24 12:00 Pre-Op Diagnosis: 1. Recurrent ventral hernia with incarceration Post-Op Diagnosis: 1. Recurrent ventral hernia with incarceration I identified the patient and participated in the time-out.: Yes Procedure Operation Date: 08/11/24 12:00 Actual Procedures p Incarcerated recurrent ventral Hernia Repair 3.5cm (Not Applicable) - Lino Llamas DO Surgeon Lino Llamas DO Operations Administrative Assistant None Estimated Blood Loss 10 Findings See Below 3.5 cm incarcerated ventral hernia containing omentum Specimens Hernia sac and contents to pathology Drains None Anesthesia Type General Complications none Disposition Disposition: Recovery Room Indications 64-year-old male with a incarcerated recurrent ventral hernia Description of Procedure The patient was brought to the OR and placed in the supine position with both arms abducted. At this time he underwent general endotracheal anesthesia without any problems. He was given appropriate pre-operative antibiotics. His abdomen was prepped and draped in the usual sterile fashion. Timeout was called. The procedure was verified as Open recurrent incarcerated ventral hernia repair, possible mesh. Surgical, anesthesia and nursing teams agreed and the procedure was begun. After injection of 0.25% Marcaine with epinephrine, a transverse incision just above the umbilicus was made using a #15 blade scalpel. This was carried down to the fascia using electrocautery. The hernia sac was encountered and then dissected free of the surrounding subcutaneous tissue using blunt and sharp dissection and contents were reduced. The hernia sac was removed along with some of the incarcerated omentum using a clamp and tie technique with 3-0 Vicryl. At this point the defect was apparent and measured 3.5cm. The previous umbilical hernia site seemed intact. The fascia was then cleared of any tissue so that healthy tissue could be used for repair. The defect was then closed using simple interrupted 0-PDS suture. The wound was then irrigated until clear. Hemostasis was achieved using electrocautery. Hemostasis was complete. 3-0 Vicryl was used to close the subcutaneous tissue to minimize space and the skin was then closed with joan. Sterile dressing was applied. All needle and sponge counts were correct x 2. At this point the patient was awakened from anesthesia, extubated and transported to PACU in stable condition. I attest to the content of the Intraoperative Record and any orders documented therein. Any exceptions are noted below.
[2024-08-11] MEDS: HYDROmorphone INJ 1 MG/ML SYRINGE IV PRN (11:56)
--- NOTE | 2024-08-11 12:32 | Anesthesiology Progress Note ---
Date of Service August 11, 2024 Anesthesia Post Procedure Vital Signs Vital Signs: Temp Pulse Pulse Resp BP BP Pulse Ox 08/11/24 12:30 36.4 C L 76 13 114/68 93 08/11/24 12:20 73 13 115/63 99 08/11/24 12:10 75 17 104/75 98 08/11/24 12:00 77 19 124/73 98 08/11/24 11:51 36.5 C 77 18 120/67 98 08/11/24 07:40 36.4 C L 80 20 135/79 92 08/11/24 00:45 36.8 C 92 H 20 153/87 H 95 08/11/24 00:36 89 18 93 08/11/24 00:06 89 22 94 08/10/24 23:51 93 H 19 95 08/10/24 23:03 98 H 21 139/102 H 95 08/10/24 23:00 139/102 H 08/10/24 23:00 139/102 H 08/10/24 22:30 95 H 17 95 08/10/24 22:00 95 H 18 137/86 95 08/10/24 20:21 95 08/10/24 19:43 37 C 104 H 16 160/84 H 96 O2 Del Method O2 Flow Rate 08/11/24 12:30 Room Air 08/11/24 12:20 Oxymask 2 08/11/24 12:10 Oxymask 4 08/11/24 12:00 Oxymask 6 08/11/24 11:51 Oxymask 8 08/11/24 07:40 Room Air 08/11/24 00:45 Room Air 08/11/24 00:36 08/11/24 00:06 08/10/24 23:51 08/10/24 23:03 08/10/24 23:00 08/10/24 23:00 08/10/24 22:30 08/10/24 22:00 Room Air 08/10/24 20:21 Room Air 08/10/24 19:43 Room Air Pain Intensity Abdomen: Pain Intensity: 5 Transfer of Care Handoff Completed per policy Notes Mental Status: alert / awake / arousable Patient Amnestic to Procedure: Yes Nausea / Vomiting: adequately controlled Pain: adequately controlled Airway Patency, RR, SpO2: stable & adequate BP & HR: stable & adequate Hydration State: stable & adequate Anesthetic Complications: no major complications apparent
[2024-08-11] MEDS: ALBUT/IPRATROP 3MG/0.5MG NEB 3 ML VIAL NEB SCH (13:04)
[2024-08-11] MEDS: oxyCODONE HCL IR 5 MG TAB (IMMEDIATE RELEASE) PO PRN (19:32)
[2024-08-12 07:53] LABS: Basophils # (auto) 0.06 K/uL (0.00-0.20); Basophils % (auto) 0.6 %; Eosinophils # (auto) 0.61 K/uL (0.00-0.50); Hemoglobin 13.2 g/dl (14.0-18.0); Immature Granulocytes # (auto) 0.03 K/uL (0.01-0.20); Immature Granulocytes % (auto) 0.3 %; Lymphocytes # (auto) 1.39 K/uL (1.20-3.40); Lymphocytes % (auto) 13.7 %; Mean Corpuscular Hemoglobin 30.3 pg (25.0-34.0); Mean Corpuscular Hgb Conc 32.2 g/dL (32.0-36.0); Mean Platelet Volume 9.6 fL (9.4-12.4); Monocytes # (auto) 0.91 K/uL (0.11-0.59); Neutrophils # (auto) 7.12 K/uL (1.40-6.50); Neutrophils % (auto) 70.4 %; Platelet Count 224 K/uL (130-400); RDW Coefficient of Variation 13.1 % (11.5-14.5); RDW Standard Deviation 45.1 fL (36.4-46.3); Red Blood Count 4.36 M/uL (4.70-6.10); White Blood Count 10.12 K/ul (4.8-10.8)
--- NOTE | 2024-08-12 08:16 | Surgery Progress Note ---
Date of Service August 12, 2024 Assessment & Plan (1) Recurrent ventral hernia with incarceration: Plan: POD 1 ventral hernia repair dressing CDI abd discomfort , continue pain control on liquid diet , ANDRES , denies n/v VSS , wbc wnl will follow Admission and Anticipated Discharge Date Admission Date: August 10, 2024 Supervising Physician Co-Signing Physician Notes I personally saw and evaluated the patient with Autumn BACK and agree with the assessment and plan. 64-year-old male status post open recurrent incarcerated ventral hernia repair He is doing well tolerating clears, can advance as tolerated No need for any antibiotics at this point He can be discharged from a surgical standpoint after lunch if he tolerates this He is to follow-up with me in 2 weeks for staple removal No lifting, pushing or pulling more than 10 pounds for the next 2 weeks Subjective expected post surgical discomfort Review of Systems Constitutional: no fever and no chills Gastrointestinal: + abdominal pain; no nausea and no vomit ing Physical Exam Constitutional: cooperative; no acute distress Respiratory: able to speak in complete sentences getting resp. treatment Gastrointestinal (Abdomen): Inspection/Auscultation: + abdominal surgical incision (drsg CDI ) Percussion/Palpation: + abdomen tender and abdomen soft Results & Data Vital Signs (Past 12 Hours) Vital Signs Temp Pulse Resp BP Pulse Ox O2 Del Method O2 Flow Rate 08/12/24 07:44 84 18 92 Room Air 08/12/24 07:26 98.2 F 88 18 134/78 94 Room Air 08/12/24 04:00 98.1 F 81 18 119/72 92 Room Air 08/12/24 03:42 82 18 96 Nasal Cannula 2 08/12/24 00:15 98.0 F 79 18 92/53 L 94 Nasal Cannula 2 08/11/24 22:18 84 18 93 Room Air PG Care Time/CCT Total # of Minutes Spent Total Time Spent with Patient: Total time spent is greater than 50% in coordination of care (as documented) at patient's floor/unit and/or counseling patient: Coding Level of Care Code 39995 Post Operative Follow-Up Diagnoses Recurrent ventral hernia with incarceration K43.0
[2024-08-12] MEDS ORDERED: oxyCODONE HCL IR 5 MG TAB (IMMEDIATE RELEASE) PO PRN ×2 (09:45→09:47)
[2024-08-12] MEDS: ACETAMINOPHEN 500 MG TAB PO SCH (10:11)
[2024-08-12] MEDS: KETOROLAC TROMETHAMINE 15 MG/ML VIAL IV ONE (10:13)
[2024-08-12 11:33] VITALS: TEMP 98.4
[2024-08-12 13:13] VITALS: BP 123/74
[2024-08-12 14:46] LABS: Albumin Globulin Ratio 1.5 (0.9-2); Albumin Level 3.7 gm/dl (3.4-5.0); Bilirubin,Total 0.7 mg/dl (0.2-1.0); Calcium 8.4 mg/dl (8.6-10.3); Creatinine Clr Calc Pharmacy 54.8 ml/min; Globulin 2.4 gm/dl (2.5-4.0); Magnesium 2.2 mg/dl (1.7-2.4); Potassium 4.1 mmol/L (3.5-5.1); Total Protein 6.1 gm/dl (6.0-8.3)
[2024-08-12 14:56] VITALS: PULSE 67; RESP 15; O2SAT 90
--- NOTE | 2024-08-12 17:27 | Discharge Summary ---
Discharge Summary Date of Service August 12, 2024 Principal Dx & Hospital Course #1 = Principal Diagnosis (1) Incarcerated umbilical hernia: 64 y/o admitted with incarcerated umbilical hernia, non-reducible. Remains painful and tender. History of robotic assisted laparoscopic umbilical hernia repair with mesh on 03/08/[address] Llamas he underwent uneventful hernia repair 08/[address] Llamas. He is tolerating low fiber diet pain is controlled. He will follow-up with Dr. Llamas in the office (2) Rhinovirus infection: With underlying COPD Mild wheezing resolved with bronchodilators, steroids not necessary. 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 Normal EF but no recent Echo in system. I personally reviewed EKG tracing has normal sinus rhythm, leftward axis, no acute ST changes He had chest pain a year ago but this was related to gastric ulcer and heartburn type symptoms nearly resolved with PPI treatment. Occasionally gets mild heartburn pain lower central chest followed by mild nausea, this tends to occur at rest or randomly. He does not get exertional chest pain. He is able to exercise >4 METS - mows his lawn with walking mower, can go up 2 flights of stairs though does have dyspnea. No history of congestive heart failure. remained stable continue aspirin metoprolol lisinopril Plan morbid obesity BMI of 40, contributes to his hernia reoccurrences. Discussed diet with him his is putting him on a program going forward Admission HPI Per Admitting Provider The patient is a 64-year-old male with past medical history including gastric ulcer, hypertension, hyperlipidemia, GERD with esophagitis, CAD, COPD, history of DE and obesity. He has a history of previous infraumbilical hernia repair, that he noted had a nontender bulge few weeks after surgery. The patient presents today with symptoms supraumbilical pain, separate from his previous surgery, that he had noted initially over the past several weeks to months, but now is worsened significantly over the past 24 hours causing him to come to the ED for assessment. He also notes the development of a worsening of generalized fatigue 24 to 48 hours. Discharge Exam PHYSICAL EXAMINATION Last 24h vital signs reviewed, see documentation in flowsheet General: comfortable appearing, no distress HEENT: Normocephalic, atraumatic, pupils round and equal, sclerae anicteric, no conjunctival injection, moist mucus membranes Lungs: Normal respiratory effort. Clear to auscultation bilaterally. No RRW Heart: Regular rate and rhythm, no murmurs. No JVD Abdomen: protuberant Soft, mildly tender in middle abdomen without RRG, nondistended. Bowel sounds present. surgical incision at umbilicus is currently dressed no strikethrough Extremities: Warm, dry, well-perfused. No extremity edema. Neuro: Alert and oriented x 4, face symmetric, moves 4 extremities well Psych: Normal affect and behavior Discharge Plan Discharge Items Patient Disposition: Home - Self-Care Reason For Visit: INCARCERATED UMBILICAL HERNIA Discharge Diagnosis: incarcerated umbilical hernia Activity: Per Instructions section Lifting: No more than 10 pounds Non-emergency contact: Primary Care Provider and Surgeon Call non-emergency contact if: you have any medication questions, your symptoms worsen and you have a fever Follow-up/Referrals: Lino Llamas DO [Physician] - Dannielle Charles MD [Primary Care Provider] - 08/21/24 3:00 pm Diet: Regular Addtl Attending Provider Instructions: Advance diet as tolerated to your regular diet Follow-up with Dr. Llamas in 2 weeks for staple removal No lifting, pushing or pulling more than 10 pounds for the next 2 weeks Take acetaminophen around the clock until pain improves Oxycodone as needed for more severe pain -opioid pain medications can cause sedation - do not drive or operate heavy machinery -opioid pain medication carries risk of overdose and dependence/addiction - use the lowest amount possible for the shortest amount of time -do not mix with alcohol or other sedatives For constipation, stay on a regular bowel regimen until you are off pain medications and more active. Drink plenty of water Miralax one capful daily or twice a day and Senna 1-2 tabs a day. Miralax and senna are safe to take fpc. Dulcolax (bisacodyl) 5-10 mg or suppository as needed for severe constipation not responding to miralax and senna. These medications are available over the counter It was a pleasure taking care of you in the hospital, Lesley Taveras MD Pending Studies at Discharge: No Stand-Alone Forms: [facility], Pain - Opioid Pain Management, Smoking Cessation Medications and DC Order Prescriptions: New acetaminophen [Tylenol Extra Strength] 500 mg Tablet 1,000 mg PO TID Qty: 0 0RF oxycodone 5 mg Tablet 5 - 10 mg PO Q4 PRN (Reason: pain) Qty: 20 0RF Continued lisinopril 40 mg tablet 40 mg PO DAILY Qty: 90 3RF metoprolol succinate 25 mg tablet extended release 24 hr 25 mg PO HS Qty: 90 3RF ezetimibe 10 mg tablet 10 mg PO DAILY Qty: 90 3RF albuterol sulfate 90 mcg/actuation HFA aerosol inhaler 1 inh inhalation QID PRN (Reason: shortness of breath or wheezing) Qty: 8.5 5RF atorvastatin 80 mg tablet 80 mg PO QPM Qty: 90 3RF aspirin 81 mg tablet,delayed release (DR/EC) 81 mg PO QAM amlodipine 5 mg tablet 5 mg PO QAM pantoprazole 40 mg tablet,delayed release (DR/EC) 40 mg PO BID Held tramadol 50 mg tablet 50 mg PO QID PRN (Reason: pain) Qty: 120 0RF Hold Instructions: Resume on 08/19/24. hold until no longer taking oxycodone Rx Instructions: ongoing therapy Supervising physician: Dannielle Charles [facility] [phone] YOANA [id number] Discharge Orders: Discharge Order (Routine); Ordered 08/12/24 Ordered By: Lesley Taveras Admission Data Admit Date/Time: 08/10/24 23:32 Attending Provider: Lesley Taveras Admit Provider: Ye Ruiz Primary Care Provider: Dannielle Charles Other Providers: Lino Llamas; Ye Ruiz Other Interventions: Discharge Summary Assessment (RN) Last Done: 08/12/24 13:12 Hospital Stay Data Consultations 08/10/24 22:42 Consult General Surgery Stat 08/10/24 22:46 ED Decision to Admit Stat Procedures Performed Operation Date: 08/11/24 12:00 Actual Procedures p Ventral Hernia Repair(Not Applicable) - Lino Llamas DO Diagnostic Imagining Performed 08/10/24 20:30 CT Abd and Pelvis [CT abd pelvis IV con only] Stat Pending Results Patient Have Any Pending Studies at Discharge: No Discharge Instructions Given to Patient (Per Discharging Provider) Advance diet as tolerated to your regular diet Follow-up with Dr. Llamas in 2 weeks for staple removal No lifting, pushing or pulling more than 10 pounds for the next 2 weeks Take acetaminophen around the clock until pain improves Oxycodone as needed for more severe pain -opioid pain medications can cause sedation - do not drive or operate heavy machinery -opioid pain medication carries risk of overdose and dependence/addiction - use the lowest amount possible for the shortest amount of time -do not mix with alcohol or other sedatives For constipation, stay on a regular bowel regimen until you are off pain medications and more active. Drink plenty of water Miralax one capful daily or twice a day and Senna 1-2 tabs a day. Miralax and senna are safe to take fpc. Dulcolax (bisacodyl) 5-10 mg or suppository as needed for severe constipation not responding to miralax and senna. These medications are available over the counter It was a pleasure taking care of you in the hospital, Lesley Taveras MD Total Time Total Time Spent Total Time Spent (In Minutes): less than 30 minutes Coding Level of Care Code 30118 IN/OBS DISCH 30 MIN/LESS Diagnoses Incarcerated umbilical hernia K42.0 Rhinovirus infection B34.8 Gastric ulcer K25.9 Hypertension I10 Coronary artery disease I25.10
--- NOTE | 2024-08-12 17:30 | Communication Note ---
Date of Service: August 12, 2024 CMP came back belatedly (appears it was redrawn?) Cr is up from 1.5 to 1.8, however, acute issue resolved and he is eating drinking well. Should resolve on its own. Recommend follow up BMP in outpatient setting.
== END 2024-08-12 15:30 | disposition home or self-care (01) | DRG 354 ==
LOC: ED 19:41 → 3W 23:32 → SUATTDRO 23:32 → 3W 08-11 01:13

== ENCOUNTER 2024-09-06 12:17 | Inpatient (IN) ==
[2024-09-06 12:41] LABS: iSTAT Creatinine 1.4 mg/dl (0.6-1.3); iSTAT Hemoglobin 17.3 g/dl (14.0-18.0); iSTAT Ionized Calcium 1.18 mmol/l (1.12-1.32); iSTAT Potassium 4.2 mmol/L (3.3-5.0)
[2024-09-06 13:24] LABS: Basophils # (auto) 0.05 K/uL (0.00-0.20); Basophils % (auto) 0.3 %; Eosinophils # (auto) 0.12 K/uL (0.00-0.50); Eosinophils % (auto) 0.8 %; Hematocrit (blood only) 49.4 % (42.0-52.0); Hemoglobin 16.3 g/dl (14.0-18.0); Immature Granulocytes # (auto) 0.05 K/uL (0.01-0.20); Immature Granulocytes % (auto) 0.3 %; Lymphocytes # (auto) 1.65 K/uL (1.20-3.40); Lymphocytes % (auto) 11.4 %; Mean Corpuscular Hemoglobin 30.6 pg (25.0-34.0); Mean Corpuscular Volume 92.7 fL (80.0-100.0); Mean Platelet Volume 9.8 fL (9.4-12.4); Monocytes # (auto) 1.31 K/uL (0.11-0.59); Neutrophils # (auto) 11.33 K/uL (1.40-6.50); Neutrophils % (auto) 78.2 %; Platelet Count 327 K/uL (130-400); RDW Coefficient of Variation 12.7 % (11.5-14.5); RDW Standard Deviation 43.2 fL (36.4-46.3); Red Blood Count 5.33 M/uL (4.70-6.10); White Blood Count 14.51 K/ul (4.8-10.8)
[2024-09-06 13:36] LABS: Albumin Globulin Ratio 1.5 (0.9-2); Albumin Level 4.2 gm/dl (3.4-5.0); BUN Creatinine Ratio 16.4 (10-20); Bilirubin,Total 0.7 mg/dl (0.2-1.0); Calcium 9.5 mg/dl (8.6-10.3); Creatinine Clr Calc Pharmacy 81.4 ml/min; Globulin 2.8 gm/dl (2.5-4.0); Potassium 4.2 mmol/L (3.5-5.1)
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
[2024-09-06] MEDS: MoRPHine SULFATE 4 MG/ML 1 ML CARP\\VIAL IV STA ×2 (14:04→15:29)
[2024-09-06] MEDS: ONDANSETRON INJ 2 MG/ML 2 ML VIAL IV STA ×2 (14:04→15:29)
[2024-09-06] MEDS: OPTIRAY 320 100ml IV ONE (14:24)
--- NOTE | 2024-09-06 15:02 | CT Scan Report ---
CT OF THE ABDOMEN AND PELVIS WITH CONTRAST CLINICAL HISTORY: mid abd pain, N/V, recent hernia surgery COMPARISON STUDY: CT of the abdomen and pelvis September 02, 2024. TECHNIQUE: Following IV administration of 95 mL of Optiray, axial images of the abdomen and pelvis we re obtained from the lung bases to the proximal femurs. Images were reviewed in the axial, sagittal, and coronal planes. IV contrast was administered without complication. Automated exposure control wa s utilized for the study. A dose lowering technique was utilized adhering to the principles of ALARA . CT DOSE: 1563.68 mGy.cm FINDINGS: Lung bases are unremarkable. No pneumatosis, free air or portal venous gas is present. Ther e is hepatic steatosis. No biliary or pancreatic ductal dilatation is present. There are no hepatic l esions. The spleen, adrenal glands, right kidney and pancreas are normal. A low-attenuation 3.4 cm le ft renal lesion represents a cyst. There is no hydronephrosis. There is colonic diverticulosis withou t evidence for acute diverticulitis. Incidental note is made of avascular necrosis of the bilateral f emoral heads. Postoperative findings consistent with umbilical hernia repair with mesh are noted. A s mall fat-containing defect is noted. Stranding and a small amount of fluid at the operative site is s imilar to CT of September 02, 2024. There has been interval mild dilatation of the proximal to mid sma ll bowel which is fluid-filled. Small bowel loops measure up to 3.8 cm. Transition point within the a nterior mid abdomen on image 242 is noted. Distal small bowel is relatively decompressed. The transit ion site is just deep to the hernia repair. Major vasculature is patent. IMPRESSION: 1. Interval development of a partial small bowel obstruction with transition site within the anterior mid abdomen, as described above. This may be on the basis of adhesions. 2. Stable postoperative findings following recent umbilical hernia repair with mesh, as described abo ve. Stable stranding in a small amount of fluid. Small fat-containing abdominal wall defect which is unchanged since prior exam. This could reflect a recurrent or residual small hernia. ACT 112: Negative or not required by law. Electronically signed by: Rosendo Infante M.D. 09/06/2024 3:01 PM
[2024-09-06 15:03] LABS: Adenovirus PCR Not Detected (NotDetected); Bordetella parapertussis PCR Not Detected (NotDetected); Bordetella pertussis PCR Not Detected (NotDetected); Chlamydia pneumoniae PCR Not Detected (NotDetected); Coronavirus 229E PCR Not Detected (NotDetected); Coronavirus CoV-2 (COVID19)PCR Not Detected (NotDetected); Coronavirus HKU1 PCR Not Detected (NotDetected); Coronavirus NL63 PCR Not Detected (NotDetected); Coronavirus OC43PCR Not Detected (NotDetected); Human Metapneumovirus PCR Not Detected (NotDetected); Influenza A PCR Not Detected (NotDetected); Influenza B PCR Not Detected (NotDetected); Mycoplasma pneumoniae PCR Not Detected (NotDetected); Parainfluenza Virus 1 PCR Not Detected (NotDetected); Parainfluenza Virus 2 PCR Not Detected (NotDetected); Parainfluenza Virus 3 PCR Not Detected (NotDetected); Parainfluenza Virus 4 PCR Not Detected (NotDetected); Respiratory Syncytial VirusPCR Not Detected (NotDetected); Rhinovirus/Enterovirus PCR Not Detected (NotDetected)
[2024-09-06] MEDS: SODIUM CHLORIDE 0.9% 1,000 ML IV ONE (15:29)
[2024-09-06 15:31] LABS: Appearance Urine Clear (Clear); Bacteria Urine Automated None Seen (None Seen); Bilirubin Urine Negative (Negative); Blood Urine Negative (Negative); Color Urine Dark Yellow; Epithelial Cell Urine Auto 0-2 /hpf (0-2); Glucose Urine UA Negative (Negative); Ketones Urine Trace (Negative); Leukocyte Esterase Urine Negative (Negative); Nitrite Urine Negative (Negative); Protein Urine 1+ (Negative); RBC Urine Automated 0-2 /hpf (0-2); Specific Gravity Urine > 1.045 (1.000-1.030); Urobilinogen Urine Negative (Negative); WBC Urine Automated 0-5 /hpf (0-5); pH Urine 6.5 (4.5-7.5)
--- NOTE | 2024-09-06 15:37 | Electrocardiogram Report ---
Test Reason : Blood Pressure : */* mmHG Vent. Rate : 97 BPM Atrial Rate : 97 BPM P-R Int : 144 ms QRS Dur : 78 ms QT Int : 332 ms P-R-T Axes : 32 -60 0 degrees QTcB Int : 421 ms Normal sinus rhythm Left anterior fascicular block Poor R wave progression, consider anterior VA vs. lead placement vs. LVH Abnormal ECG When compared with ECG of 10-Aug-2024 22:51, No significant change was found Confirmed by Joshua Gaspar ([id number]) on 09/06/2024 3:37:18 PM Referred By: Dannielle Charles Confirmed By: Joshua Gaspar
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
[2024-09-06] MEDS: ACETAMINOPHEN 1,000 MG/100 ML VIAL IV STA (18:19)
[2024-09-06] MEDS ORDERED: ALBUT/IPRATROP 3MG/0.5MG NEB 3 ML VIAL NEB PRN (19:04)
[2024-09-06] MEDS ORDERED: ALBUTEROL HFA 8 GM INHALER INH PRN (19:04)
[2024-09-06] MEDS ORDERED: ACETAMINOPHEN 500 MG TAB PO PRN (19:04)
[2024-09-06] MEDS: HYDROmorphone INJ 0.5 MG/0.5 ML SYR IV PRN (19:27)
[2024-09-06] MEDS ORDERED: PANTOprazole 40 MG TAB PO SCH (21:00)
[2024-09-06] MEDS: LACTATED RINGER'S 1,000 ML IV SCH (21:12)
[2024-09-06] MEDS: PANTOprazole 40 MG/10 ML SYR IV SCH (21:15)
[2024-09-06] MEDS: METOPROLOL SUCC 25MG EXT REL TAB PO SCH (21:18)
[2024-09-07 07:26] LABS: Basophils # (auto) 0.04 K/uL (0.00-0.20); Basophils % (auto) 0.5 %; Eosinophils # (auto) 0.37 K/uL (0.00-0.50); Eosinophils % (auto) 4.8 %; Hematocrit (blood only) 42.8 % (42.0-52.0); Hemoglobin 13.6 g/dl (14.0-18.0); Immature Granulocytes # (auto) 0.03 K/uL (0.01-0.20); Immature Granulocytes % (auto) 0.4 %; Lymphocytes # (auto) 1.17 K/uL (1.20-3.40); Lymphocytes % (auto) 15.2 %; Mean Corpuscular Hemoglobin 30.4 pg (25.0-34.0); Mean Corpuscular Hgb Conc 31.8 g/dL (32.0-36.0); Mean Corpuscular Volume 95.7 fL (80.0-100.0); Mean Platelet Volume 9.6 fL (9.4-12.4); Monocytes # (auto) 0.91 K/uL (0.11-0.59); Monocytes % (auto) 11.8 %; Neutrophils # (auto) 5.18 K/uL (1.40-6.50); Neutrophils % (auto) 67.3 %; Platelet Count 215 K/uL (130-400); RDW Coefficient of Variation 12.9 % (11.5-14.5); RDW Standard Deviation 45.7 fL (36.4-46.3); Red Blood Count 4.47 M/uL (4.70-6.10)
[2024-09-07 07:40] LABS: Anion Gap 6 (3-11); BUN Creatinine Ratio 18.4 (10-20); Blood Urea Nitrogen 23 mg/dl (6-23); Calcium 8.5 mg/dl (8.6-10.3); Carbon Dioxide 29 mmol/L (21-32); Chloride 106 mmol/L (98-107); Creatinine Clr Calc Pharmacy 80.8 ml/min; Glucose 97 mg/dl (70-99(Fasting)); Sodium 141 mmol/L (136-145)
[2024-09-07] MEDS: ASPIRIN 81 MG ECTAB PO SCH (07:48)
--- NOTE | 2024-09-07 09:04 | Surgery Progress Note ---
Date of Service September 07, 2024 Assessment & Plan Admission and Anticipated Discharge Date Admission Date: September 06, 2024 Supervising Physician Co-Signing Physician Notes Will try to obtain abdominal binders for the patient Recommend ambulation to help further bowel function but recommend this with an abdominal binder. Recommend keep NPO today until further flatus Subjective Patient was seen and examined this am. States pain is intermittent but still present. Denies nausea this am. States he passed a little flatus. Physical Exam Gastrointestinal (Abdomen): soft, TTP at supraumbilical incision without bulging identified to the extent of palpation tolerable. Incision remains intact, healed without signs of infection. Results & Data Vital Signs (Past 12 Hours) Vital Signs Temp Pulse Resp BP Pulse Ox O2 Del Method 09/07/24 07:13 36.5 C 84 18 134/81 95 Room Air 09/06/24 22:33 36.4 C L 75 18 120/71 92 Room Air PG Care Time/CCT Total # of Minutes Spent Total Time Spent with Patient: Total time spent is greater than 50% in coordination of care (as documented) at patient's floor/unit and/or counseling patient: Coding Level of Care Code None
[2024-09-07] MEDS: MoRPHine SULFATE 2 MG/ML CARP IV PRN (11:02)
[2024-09-07] MEDS: HYDROmorphone INJ 2 MG/ML SYR/VIAL IV PRN (13:50)
--- NOTE | 2024-09-07 14:17 | XRay Report ---
EXAMINATION: X-ray KUB/abdomen 1 view CLINICAL HISTORY: Abdomen pain, partial SBO, hernia PRIORS: 09/02/2024 CT TECHNIQUE: AP view abdomen FINDINGS: A large amount of formed stool present throughout the entire colon. Prominent loops of small bowel present in the left abdomen measuring up to 3.0 cm on the current examination, upper limits of normal, appearing in the interval. No air-fluid levels. Large amount of formed stool present in the sigmoid colon/rectum. No extraluminal gas. Lung bases unremarkable. Osseous structures show moderate degenerative change of the lower lumbosacral spine. IMPRESSION: Large amount of formed stool throughout the entire colon with mildly dilated loops of small bowel in the left abdomen with no air-fluid levels. ACT 112: Positive. There are findings on this examination that require communication between the performing entity and the patient following Patient Test Result Information Act ([place] ACT 112) guidelines. Electronically signed by Deborah Espinoza 09-07-2024 2:17 PM
--- NOTE | 2024-09-07 16:59 | Hospitalist Progress Note ---
Date of Service September 07, 2024 Assessment & Plan (1) Small bowel obstruction: Plan: s/p incarcerated umbilical hernia with uneventful herniorrhaphy on 08/11/2024, 11:46am with [facility] General Surgeon Dr. Lino Llamas. s/p robotic-assisted laparoscopic radical herniorrhaphy with mesh (03/08/2022, 8:36am) with [facility] General Surgeon Dr. Lino Llamas. Portable AXR/KUB (09/07/2024, 1:32pm) shows: "A large amount of formed stool present throughout the entire colon. Prominent loops of small bowel present in the left abdomen measuring up to 3.0 cm on the current examination, upper limits of normal, appearing in the interval. No air-fluid levels. Large amount of formed stool present in the sigmoid colon/rectum. No extraluminal gas. Lung bases unremarkable. Osseous structures show moderate degenerative change of the lower lumbosacral spine." Continue NPO. Patient defers NGT on 09/07/2024 and waits for 09/08/2024 am AXR/KUB. In the interim, patient has been started on a bowel regimen including colace 200mg PO bid, senna 17.2mg PO bid, tap water enema KS x 1 dose now, and magnesium citrate 296 mL PO x 1 dose now, while encouraging patient to walk whenever/if possible to promote bowel movement. I will check for bowel movement in the next 6 hours. (2) Hypertension: Plan: Modestly controlled with BP 145/79 (09/07/2024, 3:03pm). Patient is currently NPO due to acute partial SBO, and hence, patient does not receive his home-scheduled amlodipine 5mg PO qam, lisinopril 40mg PO qam, and metoprolol XL 25mg PO qhs. As long as patient remains NPO, patient has been started on hydralazine 10mg IV q6 prn systolic BP > 160 mm Hg and/or diastolic BP > 100 mm Hg. (3) COPD (chronic obstructive pulmonary disease): Plan: Not acute exacerbation of COPD (not on home O2 or home steroids) as patient has no complaints of cough, wheeze, SOB, or ZALDIVAR on 09/07/2024. Hence, patient continues to receive albuterol MDI 90ug/puff, 1 puff PO qid prn SOB/wheeze, duonebs q6 prn SOB/wheeze. Plan CAD- s/p acute NSTEMI (2016) with non-obstructive CAD in LAD; no recent echo. Continue secondary prophylaxis against CAD utilizing ASA 81 mg daily. Hold off lisinopril 40mg PO qam and metoprolol XL 25mg PO qhs as patient remains NPO. Tachycardia- s/p implantable loop recorder with tachycardia noted by CAR[facility] Dr. uYnior Hernandez. s/p [employer] PPM. Observe off telemetry while patient remains in [facility]. GERD- asymptomatic on pantoprazole 40 mg PO bid at home and in [facility]. Pain Management- Oxycodone 5mg + Tramadol 50mg at home- holding both home- scheduled medications and D/C'd both hospital-started medications (e.g., morphine 2mg IV q3 prn pain 1-5 and dilaudid 0.5mg IV q3 prn pain 6-10 given the transient analgesia reported with both parenteral narcotics. Hence, I have opted to D/C both morphine 2mg IV q3 prn pain 1-5 and dilaudid 0.5mg IV q3 prn pain 6-10, and I have started patient on dilaudid 2mg IV q4 prn pain 1-10 on 09/07/2024, 1:32pm. Dispo: Admit Diet: NPO VTE prophylaxis: Hold off pharmacologic DVT prophylaxis with heparin 5000 units SQ q12 or lovenox 40mg SQ daily given the potential for either medication to cause a bleeding diathesis in case surgical intervention of acute partial SBO due to presumed surgical adhesions from robotic-assisted laparoscopic radical herniorrhaphy with mesh (03/08/2022, 8:36am) with [facility] General Surgeon Dr. Lino Llamas. Code: Full code @ home. ACLS as required. Condition of patient remains fair. I anticipate that this patient will remain in [facility] for the next 2 midnights in order to demonstrate clinical improvement in his admitting diagnosis of acute partial SBO due to presumed surgical adhesions from robotic-assisted laparoscopic radical herniorrhaphy with mesh (03/08/2022, 8:36am) with [facility] General Surgeon Dr. Lino Llamas. Patient will then be discharged either back to home or to SNF for short-term rehab, pending daily PT/OT Service evaluations in the days to come. Admission and Anticipated Discharge Date Admission Date: September 06, 2024 Subjective "My belly hurts all over. It's a 6 (out of 10 intensity scale). I don't feel nauseated. No vomit or diarrhea. No bowel movement for 4 days now. No farting today. I normally have one bowel movement a day, but then again, I have not eaten for 4 days because of the belly pain. The morphine doesn't last long at all, less than 1 hour. Do you have anything stronger?" Review of Systems Review of Systems: Positive for generalized abdominal pain with no passage of bowel or flatus for the past 4 days. Negative for antecedent/coincident fevers, chills, diaphoresis, cough, wheeze, sore throat, hemoptysis, chest pains, palpitations, pleurisy, nausea, vomiting, diarrhea, pelvic pain, hematochezia, melena, hematuria, dysuria, frequency, urgency, headaches, dizziness, visual changes, hearing changes, falls, syncope, trauma, travel history, or food/drug ingestions novel/new. All other review of systems are reported as negative/normal on 09/07/2024. Physical Exam Physical Exam: General: Uncomfortable with patient pointing to his abdomen, but coherent, cooperative. Wide awake and alert. Not confused, lethargic, or obtunded. Patient speaks in complete, fluent, and articulate sentences without pause, interruption, cough, or wheeze. HEENT: normocephalic, atraumatic. EOMI, PERRL. No nystagmus, gaze paresis, anisocoria, miosis, mydriasis, hyphema, chemosis, scleral icterus, conjunctivitis, or pterygium. No otorrorhea. No rhinorrhea. No pharyngeal discharge or exudate. Neck: suppler, no stridor, bruit, goiter, JVD, or HJR. Lymph: no cervical, supraclavicular, infraclavicular, axillary, epitrochlear, or inguinal adenopathy. Chest: symmetric rise and fall with respiration. Non-tender to palpation. Lungs: clear to auscultation and percussion. No audible expiratory wheeze, egophony, pectoriloquy, increase in tactile fremitus, or flatness/dullness to percussion at the bases. Heart: RRR, S1 and S2 noted. No S3 or S4 summation gallop. No tripartite friction rub. Grade II/ early systolic murmur @ LLSB, not radiating to the carotids, the axilla, or back. Invariant in regards to the respiratory cycle. Abdomen: soft, protuberant due to morbid obesity with BMI 41.0 (height 177.8 cm; weight 129.756 kg), but non-distended. Generalized tenderness. No rebound, guarding, Arciniega's sign, or organomegaly. Bowel sounds auscultated in all 4 quadrants. Extremities: no clubbing, cyanosis, or edema. 2+ pedal pulses bilaterally. Skin: no decubitus ulcer, exanthem, or enanthem. Neurology: alert and oriented in regards to person, place, and time. DTR+ and symmetric. 5/5 motor strength in all 4 extremities, both proximally and distally. No tremors, tics, or myoclonus. Urology: no root catheter. No urethral discharge. Results & Data Results & Data Vital Signs (Past 12 Hours) Vital Signs Temp Pulse Resp BP Pulse Ox O2 Del Method 09/07/24 15:03 36.6 C 77 18 145/79 H 93 Room Air 09/07/24 07:13 36.5 C 84 18 134/81 95 Room Air PG Care Time/CCT Total # of Minutes Spent Total Time Spent with Patient: Total time spent is greater than 50% in coordination of care (as documented) at patient's floor/unit and/or counseling patient: Coding Level of Care Code 30682 SUB INP/OBS CARE 2/35MIN Diagnoses Small bowel obstruction K56.609 Primary hypertension I10 Hypertension type: primary hypertension COPD (chronic obstructive pulmonary disease) J44.9 (2) Hypertension Hypertension type: primary hypertension Qualified Code(s): I10 - Essential (primary) hypertension
[2024-09-07] MEDS ORDERED: hydrALAZINE HCL 20 MG/ML VIAL IV PRN (17:20)
[2024-09-07] MEDS: SENNA 8.6 MG TAB PO SCH ×2 (17:24→18:14)
[2024-09-07] MEDS: DOCUSATE SODIUM 100 MG CAP PO SCH (17:25)
[2024-09-07] MEDS: MAGNESIUM CITRATE 296 ML/BTL PO STA (17:29)
[2024-09-08 06:22] LABS: Basophils # (auto) 0.04 K/uL (0.00-0.20); Basophils % (auto) 0.5 %; Eosinophils # (auto) 0.32 K/uL (0.00-0.50); Eosinophils % (auto) 4.1 %; Hematocrit (blood only) 40.7 % (42.0-52.0); Hemoglobin 13.2 g/dl (14.0-18.0); Immature Granulocytes # (auto) 0.04 K/uL (0.01-0.20); Immature Granulocytes % (auto) 0.5 %; Lymphocytes # (auto) 1.18 K/uL (1.20-3.40); Mean Corpuscular Hemoglobin 30.6 pg (25.0-34.0); Mean Corpuscular Hgb Conc 32.4 g/dL (32.0-36.0); Mean Corpuscular Volume 94.4 fL (80.0-100.0); Mean Platelet Volume 9.9 fL (9.4-12.4); Monocytes # (auto) 0.94 K/uL (0.11-0.59); Monocytes % (auto) 11.9 %; Neutrophils # (auto) 5.37 K/uL (1.40-6.50); Platelet Count 221 K/uL (130-400); RDW Coefficient of Variation 12.7 % (11.5-14.5); RDW Standard Deviation 43.8 fL (36.4-46.3); Red Blood Count 4.31 M/uL (4.70-6.10); White Blood Count 7.89 K/ul (4.8-10.8)
[2024-09-08 06:34] LABS: BUN Creatinine Ratio 22.6 (10-20); Calcium 8.6 mg/dl (8.6-10.3); Creatinine Clr Calc Pharmacy 87.8 ml/min; Potassium 4.3 mmol/L (3.5-5.1)
--- NOTE | 2024-09-08 08:21 | XRay Report ---
KUB HISTORY: Acute generalized abdominal pain with partial small bowel obstruction partial SBO COMPARISON: KUB 09/07/2024, CT abdomen and pelvis 09/06/2024 FINDINGS: There is persistent small bowel distention with dilated air-filled loops measuring up to 4. 4 cm, generally unchanged from prior. Air is also noted within the nondistended large bowel. Moderate colonic fecal retention. No renal calculi. No ureteral calculi. No pneumoperitoneum or pneumatosis. No fracture. IMPRESSION: There is persistent mild small bowel distention suggestive of ongoing partial small bowel obstruction . ACT 112: Negative or not required by law. The above report was generated using voice recognition software. It may contain grammatical, syntax o r spelling errors. Electronically signed by: Sebastian Becker M.D. 09/08/2024 8:20 AM
--- NOTE | 2024-09-08 10:39 | Surgery Progress Note ---
Date of Service September 08, 2024 Assessment & Plan (1) SBO (small bowel obstruction): (2) Abdominal pain: Plan partial SBO patient c/o increased nausea this am Continue with NPO status in hopes to be able to avoid an NGT. Will require NGT if worsening nausea or vomiting Abdominal binder at the bedside, patient will wear this when ambulating. Ambulate with abdominal binder today Will f/u in the am Admission and Anticipated Discharge Date Admission Date: September 06, 2024 Subjective I have seen and examined this patient this am. He c/o more nausea this am and is now getting nauseous with taking his meds which he and his nurse state have included Senna and Mg Citrate. He states he is passing little flatus, no BM Physical Exam Constitutional: + obese; not in distress and not diaphor etic Respiratory: normal respiratory effort; no respiratory distress, no labored breathing and does not use accessory muscles Gastrointestinal (Abdomen): obese abdomen TTP centrally around umbilical area without any significant bulging palpable at the area. Results & Data Vital Signs (Past 12 Hours) Vital Signs Temp Pulse Resp BP Pulse Ox O2 Del Method 09/08/24 08:38 36.5 C 76 18 135/75 98 Room Air Diagnostic Findings KUB this am with evidence for small bowel loop dilation to over 4cm in one area. There does appear to be some gas in the colon PG Care Time/CCT Total # of Minutes Spent Total Time Spent with Patient: Total time spent is greater than 50% in coordination of care (as documented) at patient's floor/unit and/or counseling patient: Coding Level of Care Code 77940 SUB INP/OBS CARE 1/25MIN Diagnoses SBO (small bowel obstruction) K56.609 Abdominal pain R10.9
[2024-09-08] MEDS: MAGNESIUM CITRATE 296 ML/BTL PO STA (11:10)
[2024-09-08] MEDS: HYDROmorphone INJ 2 MG/ML SYR/VIAL IV STA (11:13)
[2024-09-08] MEDS: SODIUM CHLORIDE 0.9% 500 ML IV ONE (13:25)
--- NOTE | 2024-09-08 19:31 | Hospitalist Progress Note ---
Date of Service September 08, 2024 Assessment & Plan (1) Small bowel obstruction: Plan: s/p incarcerated umbilical hernia with uneventful herniorrhaphy on 08/11/2024, 11:46am with [facility] General Surgeon Dr. Lino Llamas. s/p robotic-assisted laparoscopic radical herniorrhaphy with mesh (03/08/2022, 8:36am) with [facility] General Surgeon Dr. Lino Llamas. Portable AXR/KUB (09/07/2024, 1:32pm) shows: "A large amount of formed stool present throughout the entire colon. Prominent loops of small bowel present in the left abdomen measuring up to 3.0 cm on the current examination, upper limits of normal, appearing in the interval. No air-fluid levels. Large amount of formed stool present in the sigmoid colon/rectum. No extraluminal gas. Lung bases unremarkable. Osseous structures show moderate degenerative change of the lower lumbosacral spine." Continue NPO. Patient defers NGT on 09/07/2024 and waits for 09/09/2024 am AXR. In the interim, patient was started on a bowel regimen including colace 200mg PO bid, senna 17.2mg PO bid, tap water enema AR x 1 dose now, and magnesium citrate 296 mL PO x 1 dose, while encouraging patient to walk whenever/if possible to promote bowel movement. I will check for bowel movement in the next 6 hours. (2) Hypertension: Plan: Modestly controlled with BP 145/79 (09/07/2024, 3:03pm) and repeat BP 133/65 (09/08/2024, 2:54pm). Patient is currently NPO due to acute partial SBO, and hence, patient does not receive his home-scheduled amlodipine 5mg PO qam, lisinopril 40mg PO qam, and metoprolol XL 25mg PO qhs. As long as patient remains NPO, patient has been started on hydralazine 10mg IV q6 prn systolic BP > 160 mm Hg and/or diastolic BP > 100 mm Hg. (3) COPD (chronic obstructive pulmonary disease): Plan: Not acute exacerbation of COPD (not on home O2 or home steroids) as patient has no complaints of cough, wheeze, SOB, or ZALDIVAR on 09/07/2024 - 09/08/2024. Hence, patient continues to receive albuterol MDI 90ug/puff, 1 puff PO qid prn SOB/wheeze, duonebs q6 prn SOB/wheeze. Plan CAD- s/p acute NSTEMI (2015) with non-obstructive CAD in LAD; no recent echo. Continue secondary prophylaxis against CAD utilizing ASA 81 mg daily. Hold off lisinopril 40mg PO qam and metoprolol XL 25mg PO qhs as patient remains NPO. Tachycardia- s/p implantable loop recorder with tachycardia noted by [facility] Dr. Yunior Hernandez. s/p [employer] PPM. Observe off telemetry while patient remains in [facility]. GERD- asymptomatic on pantoprazole 40 mg PO bid at home and in [facility]. Pain Management- Oxycodone 5mg + Tramadol 50mg at home- holding both home- scheduled medications and D/C'd both hospital-started medications (e.g., morphine 2mg IV q3 prn pain 1-5 and dilaudid 0.5mg IV q3 prn pain 6-10 given the transient analgesia reported with both parenteral narcotics. Hence, I discontinued both morphine 2mg IV q3 prn pain 1-5 and dilaudid 0.5mg IV q3 prn pain 6-10, and I started patient on dilaudid 2mg IV q4 prn pain 1-10 on 09/07/2024, 1:32pm. Subsequently, patient reports no durable/lasting analgesia with dilaudid 2mg IV q4 prn pain 1-10 on 09/08/2024. Post-admission development of acute normocytic, normochromic anemia with Hb declining: Hb 16.3, MCV 92.7, MCHC 33.0 (09/06/2024, 12:24pm). Hb 13.6, MCV 95.7, MCHC 31.8 (09/07/2024, 6:53am). Hb 13.2, MCV 94.4, MCHC 32.4 (09/08/2024, 5:47am). cf., normal baseline Hb range, 14.0 - 16.3 g/dL (04/19/2023 - 09/06/2024). Patient reports no mucosal bleeding and remains hemodynamically stable. Etiology of 3.1 g/dL decline in Hb levels from 09/06/2024 - 09/08/2024 is most likely due to hemodilution from ongoing IV fluid rehydration therapy (cf., 1 liter of lactated Ringers @ 125 mL/hr (09/06/2024, 8:15pm), 1 liter of 0.9% NS @ 130 mL/hr (09/08/2024, 1:19pm) as patient remains NPO. Hence, I have opted to hold off further Hb testing in order to conserve and preserve this patient's nelli blood supply. Dispo: Admit Diet: NPO VTE prophylaxis: Hold off pharmacologic DVT prophylaxis with heparin 5000 units SQ q12 or lovenox 40mg SQ daily given the potential for either medication to cause a bleeding diathesis in case surgical intervention of acute partial SBO due to presumed surgical adhesions from robotic-assisted laparoscopic radical herniorrhaphy with mesh (03/08/2022, 8:36am) with [facility] General Surgeon Dr. Lino Llamas. Code: Full code @ home. ACLS as required. Condition of patient remains fair. I anticipate that this patient will remain in [facility] for the next 2 midnights in order to demonstrate clinical improvement in his admitting diagnosis of acute partial SBO due to presumed surgical adhesions from robotic-assisted laparoscopic radical herniorrhaphy with mesh (03/08/2022, 8:36am) with [facility] General Surgeon Dr. Lino Llamas. Patient will then be discharged either back to home or to SNF for short-term rehab, pending daily PT/OT Service evaluations in the days to come. Admission and Anticipated Discharge Date Admission Date: September 06, 2024 Subjective "My belly still hurts a lot. It is a 6 or a 7 (out of 10 intensity scale of pain) today. I am not farting; just one squirt of tiny liquid bowel yesterday, no bowel movement today at all." Review of Systems Review of Systems: Positive for generalized abdominal pain with no passage of bowel or flatus for the past 4 days. Negative for antecedent/coincident fevers, chills, diaphoresis, cough, wheeze, sore throat, hemoptysis, chest pains, palpitations, pleurisy, nausea, vomiting, diarrhea, pelvic pain, hematochezia, melena, hematuria, dysuria, frequency, urgency, headaches, dizziness, visual changes, hearing changes, falls, syncope, trauma, travel history, or food/drug ingestions novel/new. All other review of systems are reported as negative/normal on 09/07/2024. Physical Exam Physical Exam: General: Uncomfortable with patient pointing to his abdomen, but coherent, cooperative. Wide awake and alert. Not confused, lethargic, or obtunded. Patient speaks in complete, fluent, and articulate sentences without pause, interruption, cough, or wheeze. HEENT: normocephalic, atraumatic. EOMI, PERRL. No nystagmus, gaze paresis, anisocoria, miosis, mydriasis, hyphema, chemosis, scleral icterus, conjunctivitis, or pterygium. No otorrorhea. No rhinorrhea. No pharyngeal discharge or exudate. Neck: suppler, no stridor, bruit, goiter, JVD, or HJR. Lymph: no cervical, supraclavicular, infraclavicular, axillary, epitrochlear, or inguinal adenopathy. Chest: symmetric rise and fall with respiration. Non-tender to palpation. Lungs: clear to auscultation and percussion. No audible expiratory wheeze, eg ophony, pectoriloquy, increase in tactile fremitus, or flatness/dullness to percussion at the bases. Heart: RRR, S1 and S2 noted. No S3 or S4 summation gallop. No tripartite friction rub. Grade II/ early systolic murmur @ LLSB, not radiating to the carotids, the axilla, or back. Invariant in regards to the respiratory cycle. Abdomen: soft, protuberant due to morbid obesity with BMI 41.0 (height 177.8 cm; weight 129.756 kg), but non-distended. Generalized tenderness. No rebound, guarding, Arciniega's sign, or organomegaly. Bowel sounds auscultated in all 4 quadrants. Extremities: no clubbing, cyanosis, or edema. 2+ pedal pulses bilaterally. Skin: no decubitus ulcer, exanthem, or enanthem. Neurology: alert and oriented in regards to person, place, and time. DTR+ and symmetric. 5/5 motor strength in all 4 extremities, both proximally and distally. No tremors, tics, or myoclonus. Urology: no root catheter. No urethral discharge. Results & Data Results & Data Vital Signs (Past 12 Hours) Vital Signs Temp Pulse Resp BP BP Pulse Ox O2 Del Method 09/08/24 14:54 36.4 C L 73 18 133/65 94 Room Air 09/08/24 08:38 36.5 C 76 18 135/75 98 Room Air Laboratory Results WBC 14.51, N78 L11 M 9 E1, Hb 16.3, MCV 92.7, MCHC 33.0, platelet 327 (09/06/2024, 12:24pm). WBC 7.70, N67 L15 M12 E5 B1, Hb 13.6, MCV 95.7, MCHC 31.8, platelet 215 (09/07/2024, 6:53am). WBC 7.89, N68 L15 M12 E4, Hb 13.2, MCV 94.4, MCHC 32.4, platelet 221 (09/08/2024, 5:47am). Diagnostic Findings KUB (09/07/2024, 1:32pm): Large amount of formed stool throughout the entire colon with mildly dilated loops of small bowel in the left abdomen with no air- fluid levels. KUB (09/08/2024, 7:42am): Persistent mild small bowel distention suggestive of ongoing partial small bowel obstruction. PG Care Time/CCT Total # of Minutes Spent Total Time Spent with Patient: Total time spent is greater than 50% in coordination of care (as documented) at patient's floor/unit and/or counseling patient: Coding Level of Care Code 94291 SUB INP/OBS CARE 3/50MIN Diagnoses Small bowel obstruction K56.609 Primary hypertension I10 Hypertension type: primary hypertension COPD (chronic obstructive pulmonary disease) J44.9 (2) Hypertension Hypertension type: primary hypertension Qualified Code(s): I10 - Essential (primary) hypertension
[2024-09-08] MEDS ORDERED: SODIUM CHLORIDE 0.9% 50 ML BAG IV ONE (21:56)
[2024-09-08] MEDS ORDERED: SODIUM CHLORIDE 0.9% 1,000 ML IV SCH (22:15)
[2024-09-08] MEDS: SODIUM CHLORIDE 0.9% 500 ML IV SCH (22:55)
--- NOTE | 2024-09-09 07:30 | XRay Report ---
EXAM: XR KUB/Abdomen 1 view CLINICAL HISTORY: PARTIAL SBO WTW TECHNIQUE: X-ray images of the abdomen were obtained in supine and upright positions. COMPARISON: 09/07/2024. FINDINGS: Gas Pattern: Gas pattern within the abdomen is normal. No evidence of bowel obstruction or distention. No central abdominal bowel gases, fluid filled bowel can't be excluded, CT is recommended if clinically warranted. Soft Tissues: Soft tissues of the abdomen appear normal without evidence of masses or calcifications. Liver, spleen, and kidneys are unremarkable. IMPRESSION: 1. No acute abnormalities identified. 2. Non-visualization of previously noted mild small bowel dilatation with paucity of central bowel gases, CT is recommended if clinically warranted. Electronically signed by Monico Burns 09-09-2024 07:30 AM
--- NOTE | 2024-09-09 08:01 | Hospitalist Progress Note ---
Date of Service September 09, 2024 Assessment & Plan (1) Small bowel obstruction: Plan: s/p incarcerated umbilical hernia with uneventful herniorrhaphy on 08/11/2024, 11:46am with [facility] General Surgeon Dr. Lino Llamas. s/p robotic-assisted laparoscopic radical herniorrhaphy with mesh (03/08/2022, 8:36am) with [facility] General Surgeon Dr. Lino Llamas. Imaging w/ A large amount of formed stool present throughout the entire colon. Prominent loops of small bowel present in the left abdomen measuring up to 3.0 cm on the current examination, upper limits of normal, appearing in the interval. No air-fluid levels. Large amount of formed stool present in the sigmoid colon/rectum. General surgery consulted/following NPO, bowel rest Defer NGT for now as no further n/v (but did have following mag citrate prior given w/ colace/senna and discussed NOTHING BY MOUTH) IVF continued, had dropped off last evening. Resumed and INCREASING to 100cc/hr for now. Protonix IV BID continued Pain control, antiemetics as needed -- plan to decrease Dilaudid to 1mg but increase to q2h for more frequent dosing if needed but prevention higher doses to prevent worsened constipation AMBULATION encouraged, has not been out of bed/walking since this weekend and suspect contributing and improvement w/ increased ambulation suspected/hopeful CONTINUE STRICT NPO FOR NOW UNLESS OTHERWISE INSTRUCTED BY SURGERY GIVEN SBO KUB from today w/ non-visualization of previously noted mid small bowel dilatation w/ paucity of central bowel gases, CT is rec if clinically warranted Message to surgery, waiting to see further recs per Dr Medina per [facility]. Monitor labs/exam in AM (2) Hypertension: Plan: Outpatient on metoprolol 25mg HS, lisinopril 10mg, amlodipine 5mg NPO for above, hydralazine available if needed (3) COPD (chronic obstructive pulmonary disease): Plan: Not acute exacerbation of COPD (not on home O2 or home steroids) as patient has no complaints of cough, wheeze, SOB, or ZALDIVAR on 09/07/2024 - 09/08/2024 however did report feeling a little SOB to me overnight but had resolved without treatment, no sputum production or hypoxia noted and remains 94% on RA Incentive spirometer ordered and encouraged to continue to prevent atelectasis. ALbuterol/duonebs available prn Monitor for any issues/exacerbation (4) CAD in crow artery: Plan: CAD- s/p acute NSTEMI (2016) with non-obstructive CAD in LAD; no recent echo. Continue secondary prophylaxis against CAD utilizing ASA 81 mg daily. Hold off lisinopril 40mg PO qam and metoprolol XL 25mg PO qhs as patient remains NPO. Tachycardia- s/p implantable loop recorder with tachycardia noted by [facility] Dr. Yunior Hernandez. s/p [employer] PPM. Observe off telemetry while patient remains in [facility]. K/mag replete, rates stable Plan Pain Management- Oxycodone 5mg + Tramadol 50mg at home- holding both home- scheduled medications and D/C'd both hospital-started medications (e.g., morphine 2mg IV q3 prn pain 1-5 and dilaudid 0.5mg IV q3 prn pain 6-10 given the transient analgesia reported with both parenteral narcotics. Morphine dc'd and placed on Dilaudid, adjustment as above, increased ambulation recommended DVT proph: SCDs added, will see further recs by surgery today and hold off chemoproph but if no plans for intervention may start Lovenox SQ once daily Dispo: continue strict NPO unless otherwise rec by surgery, continue IVF/increased rate and pain control as outlined. Ambulation encouraged and hopeful will have improvement with such. Serial exams Further recs per surgery once seen. Admission and Anticipated Discharge Date Admission Date: September 06, 2024 Subjective Eval this morning, laying in bed. Reports ongoing discomfort but no further emesis since after the mag citrate which he took prior and thought was going to have bowel movement and then did not. He reports had been continued on colace/senna and surgeon told him nothing by mouth yesterday -- discussed agreed w/ bowel rest. Pain control ok, but IV wearing off. Discussed decreased frequency interval as dose appears to be working but also encouraged ambulation. HE reports they told him that on Satuday but has not really been up out of bed much. Discussed obtaining pain control and strongly encouraged ambulation as this will be his biggest hel p He reports he noticed the IVF stopped overnight but were restarted and he could tell when they stopped. Discussed increasing IVF rate and continuing for 3L but also will monitor electrolytes/replacement as needed. No fever/chills, chest pain reported. He did report almost asking for a breathing treatment but sob resolved. Discussed and RN to provide incentive spirometer. Questions/concerns addressed at this time, further orders once seen by therapy. Physical Exam Physical Exam: General: 64yo male laying in bed, on phone, slightly uncomfortable appearing but in no acute distress HEENT: head atraumatic, normocephalic, mm slightly dry, trachea midline Resp: CTA, slightly diminished in the bases/assocaited crackles (RN to provide incentive spirometer), able to talk in complete sentences, no rales, on room air CV: RRR, +systolic murmur, no pitting edema/calf tenderness, pulses present GI: +BS, slow, +distension, +generalized tenderness but no overt guarding/rebound no root MSK/Neuro: nonfocal, answering questions appropriately, not confused Psych: AOx3, cooperative with exam Results & Data Results & Data Vital Signs (Past 12 Hours) Vital Signs Temp Pulse Resp BP Pulse Ox O2 Del Method 09/09/24 07:16 36.5 C 73 16 152/73 H 94 Room Air Laboratory Results 09/09/24 Range/Units 08:44 WBC 8.79 (4.8-10.8) K/ul RBC 4.58 L (4.70-6.10) M/uL Hgb 13.9 L (14.0-18.0) g/dl Hct 42.3 (42.0-52.0) % MCV 92.4 (80.0-100.0) fL MCH 30.3 (25.0-34.0) pg MCHC 32.9 (32.0-36.0) g/dL RDW Std Deviation 41.8 (36.4-46.3) fL RDW Coeff of Bibi 12.3 (11.5-14.5) % Plt Count 241 (130-400) K/uL MPV 9.5 (9.4-12.4) fL Sodium 139 (136-145) mmol/L Potassium 4.2 (3.5-5.1) mmol/L Chloride 105 (98-107) mmol/L Carbon Dioxide 24 (21-32) mmol/L Anion Gap 10 (3-11) BUN 22 (6-23) mg/dl Creatinine 1.03 (0.6-1.4) mg/dl Est Cr Clr Drug Dosing 98.1 ml/min eGFR 81.12 BUN/Creatinine Ratio 21.4 H (10-20) Glucose 80 (70-99(Fasting)) mg/dl Calcium 8.6 (8.6-10.3) mg/dl Magnesium 2.2 (1.7-2.4) mg/dl Total Bilirubin 0.9 (0.2-1.0) mg/dl AST 21 (13-39) U/L ALT 20 (7-52) U/L Alkaline Phosphatase 61 (34-104) U/L Total Protein 6.0 (6.0-8.3) gm/dl Albumin 3.4 (3.4-5.0) gm/dl Globulin 2.6 (2.5-4.0) gm/dl Albumin/Globulin Ratio 1.3 (0.9-2) Diagnostic Findings KUB X-Ray 09/09/24 06:00 EXAM: XR KUB/Abdomen 1 view CLINICAL HISTORY: PARTIAL SBO WTW TECHNIQUE: X-ray images of the abdomen were obtained in supine and upright positions. COMPARISON: 09/07/2024. FINDINGS: Gas Pattern: Gas pattern within the abdomen is normal. No evidence of bowel obstruction or distention. No central abdominal bowel gases, fluid filled bowel can't be excluded, CT is recommended if clinically warranted. Soft Tissues: Soft tissues of the abdomen appear normal without evidence of masses or calcifications. Liver, spleen, and kidneys are unremarkable. IMPRESSION: 1. No acute abnormalities identified. 2. Non-visualization of previously noted mild small bowel dilatation with paucity of central bowel gases, CT is recommended if clinically warranted. Electronically signed by Monico Burns 09-09-2024 07:30 AM PG Care Time/CCT Total # of Minutes Spent Total Time Spent with Patient: Total time spent is greater than 50% in coordination of care (as documented) at patient's floor/unit and/or counseling patient: Coding Level of Care Code 77287 SUB INP/OBS CARE 3/50MIN Diagnoses Small bowel obstruction K56.609 Primary hypertension I10 Hypertension type: primary hypertension COPD (chronic obstructive pulmonary disease) J44.9 CAD in crow artery I25.10 (2) Hypertension Hypertension type: primary hypertension Qualified Code(s): I10 - Essential (primary) hypertension
[2024-09-09 09:00] LABS: Hematocrit (blood only) 42.3 % (42.0-52.0); Hemoglobin 13.9 g/dl (14.0-18.0); Mean Corpuscular Hemoglobin 30.3 pg (25.0-34.0); Mean Corpuscular Hgb Conc 32.9 g/dL (32.0-36.0); Mean Corpuscular Volume 92.4 fL (80.0-100.0); Mean Platelet Volume 9.5 fL (9.4-12.4); Platelet Count 241 K/uL (130-400); RDW Coefficient of Variation 12.3 % (11.5-14.5); RDW Standard Deviation 41.8 fL (36.4-46.3); Red Blood Count 4.58 M/uL (4.70-6.10); White Blood Count 8.79 K/ul (4.8-10.8)
[2024-09-09 09:15] LABS: Albumin Globulin Ratio 1.3 (0.9-2); Albumin Level 3.4 gm/dl (3.4-5.0); BUN Creatinine Ratio 21.4 (10-20); Bilirubin,Total 0.9 mg/dl (0.2-1.0); Calcium 8.6 mg/dl (8.6-10.3); Creatinine Clr Calc Pharmacy 98.1 ml/min; Globulin 2.6 gm/dl (2.5-4.0); Magnesium 2.2 mg/dl (1.7-2.4); Potassium 4.2 mmol/L (3.5-5.1)
[2024-09-09] MEDS: HYDROmorphone INJ 2 MG/ML SYR/VIAL IV PRN (10:49)
--- NOTE | 2024-09-09 11:31 | Surgery Progress Note ---
<Statement entered by Dianne Preston DO - 09/09/24 13:00> I have seen and examined this patient this am. Ambulate with abdominal binder. I agree with the assessment and plan. Date of Service September 09, 2024 Assessment & Plan (1) SBO (small bowel obstruction): Plan: Pt with history of ventral hernia repair x2 here w/ pain, n/v and findings concerning for SBO Imaging reveals some fat in hernia, not bowel containing He reports pain comes and goes. nausea is mildly improved He has not passed much gas or had a BM of recent Abdominal exam the same, mostly tender in naren umbilical region Continue NPO with IVF. No NGT indicated unless develops worsening symptoms Will continue to follow closely Admission and Anticipated Discharge Date Admission Date: September 06, 2024 Subjective Patient feeling okay. Nausea is mildly improved. He denies any recent flatus or BM. His pain comes and goes. Physical Exam Physical Exam: awake/alert, no distress Respiratory: normal respiratory effort Gastrointestinal (Abdomen): Percussion/Palpation: + abdomen tender (generalized discomfort, worse in naren umbilical region) and abdomen soft Results & Data Vital Signs (Past 12 Hours) Vital Signs Temp Pulse Resp BP Pulse Ox O2 Del Method 09/09/24 07:16 97.7 F 73 16 152/73 H 94 Room Air PG Care Time/CCT Total # of Minutes Spent Total Time Spent with Patient: Total time spent is greater than 50% in coordination of care (as documented) at patient's floor/unit and/or counseling patient: Coding Level of Care Code 83328 SUB INP/OBS CARE /25MIN Diagnoses SBO (small bowel obstruction) K56.609
[2024-09-09] MEDS: SODIUM CHLORIDE 0.9% 1,000 ML IV SCH (17:05)
[2024-09-09] MEDS: HEPARIN SOD 5,000 UNIT/0.5 ML VIAL SQ SCH (20:20)
[2024-09-10 07:42] LABS: Hematocrit (blood only) 41.8 % (42.0-52.0); Hemoglobin 13.7 g/dl (14.0-18.0); Mean Corpuscular Hemoglobin 30.5 pg (25.0-34.0); Mean Corpuscular Hgb Conc 32.8 g/dL (32.0-36.0); Mean Corpuscular Volume 93.1 fL (80.0-100.0); Mean Platelet Volume 9.5 fL (9.4-12.4); Platelet Count 231 K/uL (130-400); RDW Coefficient of Variation 12.3 % (11.5-14.5); RDW Standard Deviation 42.5 fL (36.4-46.3); Red Blood Count 4.49 M/uL (4.70-6.10)
[2024-09-10 08:09] LABS: Albumin Globulin Ratio 1.4 (0.9-2); Albumin Level 3.4 gm/dl (3.4-5.0); BUN Creatinine Ratio 19.6 (10-20); Bilirubin,Total 0.8 mg/dl (0.2-1.0); Calcium 8.7 mg/dl (8.6-10.3); Globulin 2.5 gm/dl (2.5-4.0); Potassium 4.2 mmol/L (3.5-5.1); Total Protein 5.9 gm/dl (6.0-8.3)
--- NOTE | 2024-09-10 09:11 | XRay Report ---
KUB HISTORY: Acute has abdominal pain f/u SBO COMPARISON: 09/09/2024, 09/08/2024. FINDINGS: Moderate colonic fecal retention. Air is noted within the large and small bowel. There mild ly dilated small bowel in the left abdomen measures up to 3.2 cm, 4.4 cm on the September 08 study. N o renal calculi. No ureteral calculi. No pneumoperitoneum or pneumatosis. No fracture. IMPRESSION: Findings suggestive of a resolving small bowel obstruction. ACT 112: Negative or not required by law. The above report was generated using voice recognition software. It may contain grammatical, syntax o r spelling errors. Electronically signed by: Sebastian Becker M.D. 09/10/2024 9:10 AM
--- NOTE | 2024-09-10 09:55 | Surgery Progress Note ---
Date of Service September 10, 2024 Assessment & Plan (1) SBO (small bowel obstruction): Plan: CT images and results from 09/06/24 were personally viewed and interpreted by myself And has a small recurrent incarcerated umbilical hernia now with questionable partial small bowel obstruction I have had long discussions with him about this hernia as the hernia itself is not causing the obstruction At this point will tentatively plan on exploratory laparotomy, possible bowel resection, repair of recurrent umbilical hernia, possible explantation of mesh on He can trial clear liquids over the next few days as his KUB does look improved Will continue to follow (2) Recurrent ventral hernia: Admission and Anticipated Discharge Date Admission Date: September 06, 2024 Subjective Pt seen and examined. Still with abdominal pain, not much improved over the last day. Denies any nausea or emesis. Afebrile. Review of Systems Constitutional: no fever and no chills Cardiovascular: no chest pain and no dyspnea on exertion Gastrointestinal: + abdominal pain and + constipation; no nausea, no vomiting and no diarrhea/loose stools Genitourinary: no dysuria or no urinary incontinence Musculoskeletal: no back pain and no neck pain Integumentary: no acne, no sores and no dry skin Neurologic: no gait abnormality, no paresthesia and no headache(s) Hematologic / Lymphatic: no easy bleeding and no easy bruising Physical Exam Constitutional: WD/WN, vitals as above Respiratory: normal respiratory effort, lungs clear to auscultation Cardiovascular: RRR, no murmur, no edema Gastrointestinal (Abdomen): Inspection/Auscultation: abdomen normal to inspect ion; abdomen not distended Percussion/Palpation: + abdomen tender (generalized, most at umbilicus), abdomen soft and + hernia (unable to palpate due to body habitus); no guarding Musculoskeletal: no cyanosis or clubbing, extremities motor strength 5/5 Skin: no rashes, warm and dry Results & Data Vital Signs (Past 12 Hours) Vital Signs Temp Pulse Resp BP Pulse Ox O2 Del Method 09/10/24 07:43 36.6 C 72 16 145/61 H 93 Room Air PG Care Time/CCT Total # of Minutes Spent Total Time Spent with Patient: Total time spent is greater than 50% in coordination of care (as documented) at patient's floor/unit and/or counseling patient: Coding Level of Care Code 75917 SUB INP/OBS CARE Diagnoses SBO (small bowel obstruction) K56.609 Recurrent ventral hernia K43.2
[2024-09-10] MEDS: ONDANSETRON INJ 2 MG/ML 2 ML VIAL IV PRN (17:26)
--- NOTE | 2024-09-10 22:06 | Hospitalist Progress Note ---
Date of Service September 10, 2024 Assessment & Plan (1) Small bowel obstruction: Plan: Presented after multiple days of abdominal pain, nausea, and vomiting - S/p incarcerated umbilical hernia with uneventful herniorrhaphy in Jul [address] Llamas - S/p robotic-assisted laparoscopic radical herniorrhaphy with mesh February 2022,with Dr. Llamas - CT A/P showed interval development of partial SBO on admission - KUB showed large amount of formed stool throughout entire colon on admission - General surgery consulted/following -- tentatively plan on exploratory laparotomy, possible bowel resection, repair of recurrent umbilical hernia, possible explantation of mesh on 09/12 - KUB improved and diet advanced to clear liquids as tolerated until surgery - Continue Protonix BID - Dilaudid and Zofran PRN -- recommend decreased Dilaudid dose with increased dose frequency to prevent worsened constipation - Encourage ambulation (2) Hypertension: Plan: Continue metoprolol 25mg HS, lisinopril 10mg, amlodipine 5mg Hydralazine PRN with parameters (3) CAD in [place] artery: Plan: S/p acute NSTEMI (2015) with non-obstructive CAD in LAD; no recent echo - Continue amlodipine, aspirin, atorvastatin, ezetimibe, lisinopril, metoprolol Tachycardia - S/p implantable loop recorder with tachycardia noted by [facility] Dr. Yunior Hernandez. s/p [employer] PPM. Observe off telemetry while patient remains in [facility] - K/mag replete, rates stable Plan Advanced diet to clear liquids Resumed aspirin, metoprolol, lisinopril, amlodipine Pain Management: Oxycodone 5mg + Tramadol 50mg at home - holding both home-scheduled m edications Pain regimen adjusted - Continue Dilaudid, increased ambulation recommended COPD: Albuterol/duonebs PRN, incentive spirometer encouraged DVT proph: Heparin CODE STATUS: Full code Admission and Anticipated Discharge Date Admission Date: September 06, 2024 Supervising Physician Co-Signing Physician Notes PA Supervision Note: I did not personally see or examine the patient today, but I verified all turpin points of VASILIY Pace's assessment and plan with the following exceptions/additions: None Subjective Patient seen and evaluated at bedside. He reports his abdominal pain is about the same today. He notes a constant dull achy pain with intermittent sharp/stabbing pain. He reports mild nausea. We discussed advancing to clear liquid diet until plan for surgery on . Denies passing gas or bowel movement. No additional complaints or concerns at this time. Physical Exam Physical Exam: General: No acute distress, nondiaphoretic, well-developed, well-nourished. Skin: The skin was without rashes, erythema, edema, or bruising. Cardiac: Regular rate and rhythm without murmurs gallops or rubs. Pulm: Expiratory wheeze but otherwise clear to auscultation bilaterally. No respiratory distress. 97% on room air. Abdominal: Soft, nondistended. Tender to palpation of periumbilical and LLQ regions. No guarding or rebound tenderness. Hypoactive bowel sounds present. Neuro: A&O x3. No focal neurological deficits. Results & Data Results & Data Vital Signs (Past 12 Hours) Vital Signs Temp Pulse Resp BP Pulse Ox O2 Del Method 09/10/24 20:10 98.2 F 76 18 176/81 H 97 Room Air 09/10/24 15:07 98.1 F 82 14 168/78 H 94 Room Air 09/10/24 10:59 97.5 F L 80 17 149/81 H 97 Room Air Laboratory Results Reviewed CBC Reviewed CMP PG Care Time/CCT Total # of Minutes Spent Total Time Spent with Patient: Total time spent is greater than 50% in coordination of care (as documented) at patient's floor/unit and/or counseling patient: Coding Level of Care Code 63824 SUB INP/OBS CARE 3/50MIN Diagnoses Small bowel obstruction K56.609 Primary hypertension I10 Hypertension type: primary hypertension CAD in [place] artery I25.10 (2) Hypertension Hypertension type: primary hypertension Qualified Code(s): I10 - Essential (primary) hypertension
--- NOTE | 2024-09-11 08:20 | Surgery Progress Note ---
Date of Service September 11, 2024 Assessment & Plan (1) Abdominal hernia: Plan: pt scheduled for Exploratory Laparotomy, Possible Bowel Resection, Umbilical Hernia Repair, Possible Explantation of Mesh tomorrow 09/[address] Llamas he may continue clear liquids until MN Hold SQ heparin at MN OOB ambulate (2) Small bowel obstruction: Admission and Anticipated Discharge Date Admission Date: September 06, 2024 Supervising Physician Co-Signing Physician Notes Patient seen and examined, agree with above. Admitted with small bowel obstruction, history of umbilical hernia repair in the past with mesh. Still feeling about the same. Exam with mild tenderness but otherwise benign. He is scheduled for exploratory laparotomy with Dr. Llamas tomorrow. Subjective pt feeling a little better than yesterday however still with abd pain denies n/v , no bms /flatus Review of Systems Constitutional: no fever and no chills Respiratory: no dyspnea Gastrointestinal: + abdominal pain and + bloating; no naus ea and no vomiting Psychiatric: no confusion Physical Exam Constitutional: cooperative; no acute distress Respiratory: normal respiratory effort; no respiratory distress Cardiovascular: Rate/Rhythm: regular rate Gastrointestinal (Abdomen): Inspection/Auscultation: + abdomen distended and + abdominal surgical scar Percussion/Palpation: + abdomen tender Skin: no rashes, warm and dry Psychiatric: A+Ox3, euthymic affect Results & Data Vital Signs (Past 12 Hours) Vital Signs Temp Pulse Resp BP Pulse Ox O2 Del Method 09/11/24 07:46 97.3 F L 63 20 105/63 92 Room Air Results CBC w Diff Results: RBC 4.49 M/uL (4.70-6.10) L 09/10/24 WBC 8.20 K/ul (4.8-10.8) 09/10/24 Hgb 13.7 g/dl (14.0-18.0) L 09/10/24 Hct 41.8 % (42.0-52.0) L 09/10/24 MCV 93.1 fL (80.0-100.0) 09/10/24 MCH 30.5 pg (25.0-34.0) 09/10/24 MCHC 32.8 g/dL (32.0-36.0) 09/10/24 RDW Standard Deviation 42.5 fL (36.4-46.3) 09/10/24 RDW Coefficient of Variation 12.3 % (11.5-14.5) 09/10/24 Plt Count 231 K/uL (130-400) 09/10/24 MPV 9.5 fL (9.4-12.4) 09/10/24 Neutrophils (%) (Auto) 68.0 % 09/08/24 Lymphocytes (%) (Auto) 15.0 % 09/08/24 Monocytes # (Auto) 0.94 K/uL (0.11-0.59) H 09/08/24 Eosinophils # (Auto) 0.32 K/uL (0.00-0.50) 09/08/24 Immature Granulocyte % (Auto) 0.5 % 09/08/24 Neutrophils # (Auto) 5.37 K/uL (1.40-6.50) 09/08/24 Lymphocytes # (Auto) 1.18 K/uL (1.20-3.40) L 09/08/24 Monocytes # (Auto) 0.94 K/uL (0.11-0.59) H 09/08/24 Eosinophils # (Auto) 0.32 K/uL (0.00-0.50) 09/08/24 Basophils # (Auto) 0.04 K/uL (0.00-0.20) 09/08/24 Immature Granulocyte # (Auto) 0.04 K/uL (0.01-0.20) 4 PG Care Time/CCT Total # of Minutes Spent Total Time Spent with Patient: Total time spent is greater than 50% in coordination of care (as documented) at patient's floor/unit and/or counseling patient: Coding Level of Care Code 82245 Post Operative Follow-Up Diagnoses Abdominal hernia K46.9 Small bowel obstruction K56.609
[2024-09-11] MEDS: lisinopril 40 MG TAB PO SCH (09:06)
[2024-09-11] MEDS: amLODIPine BESYLATE 5 MG TAB PO SCH (09:06)
--- NOTE | 2024-09-11 18:07 | Hospitalist Progress Note ---
Date of Service September 11, 2024 Assessment & Plan (1) Small bowel obstruction: Plan: Presented after multiple days of abdominal pain, nausea, and vomiting - S/p incarcerated umbilical hernia with uneventful herniorrhaphy in Jul [address] Llamas - S/p robotic-assisted laparoscopic radical herniorrhaphy with mesh February 2022,with Dr. Llamas - CT A/P showed interval development of partial SBO on admission - KUB showed large amount of formed stool throughout entire colon on admission - General surgery consulted/following -- plan for exploratory laparotomy, possible bowel resection, repair of recurrent umbilical hernia, possible explantation of mesh on 09/12 - KUB improved and diet advanced to clear liquids, well-tolerated. NPO at midnight pending surgery - Continue Protonix BID - Dilaudid and Zofran PRN -- recommend decreased Dilaudid dose with increased dose frequency to prevent worsened constipation - Encourage ambulation (2) Hypertension: Plan: Continue metoprolol 25mg HS, lisinopril 40mg, amlodipine 5mg Hydralazine PRN with parameters (3) CAD in [place] artery: Plan: S/p acute NSTEMI (2015) with non-obstructive CAD in LAD; no recent echo - Continue amlodipine, aspirin, atorvastatin, ezetimibe, lisinopril, metoprolol Tachycardia - S/p implantable loop recorder with tachycardia noted by [facility] Dr. Yunior Hernandez. s/p [employer] PPM. Observe off telemetry while patient remains in [facility] - K/mag replete, rates stable Plan Pain Management: Oxycodone 5mg + Tramadol 50mg at home - holding both home-scheduled medications Pain regimen adjusted - Continue Dilaudid, increased ambulation recommended COPD: Albuterol/duonebs PRN, incentive spirometer encouraged DVT proph: Heparin CODE STATUS: Full code Admission and Anticipated Discharge Date Admission Date: September 06, 2024 Supervising Physician Co-Signing Physician Notes VASILIY Supervision Note: I did not personally see or examine the patient today, but I verified all turpin points of VASILIY Pace's assessment and plan with the following exceptions/additions: Resume home atorvastatin, Zetia. Add on CBC, BMP, Mag, phos for tomorrow Dc senna, docusate which have been on hold Subjective Patient seen and evaluated at bedside. He reports his abdominal pain is unchanged. He also reports some nausea at the time of my visit. He reports tolerating his clear liquid diet ok. He is eager for surgery tomorrow. No additional complaints or concerns at this time. Physical Exam Physical Exam: General: No acute distress, nondiaphoretic, well-developed, well-nourished. Skin: The skin was without rashes, erythema, edema, or bruising. Cardiac: Regular rate and rhythm without murmurs gallops or rubs. Pulm: Clear to auscultation bilaterally, no wheezing. No respiratory distress. 92% on room air. Abdominal: Soft, nondistended. Tender to palpation of periumbilical and LLQ regions. Voluntary guarding. No rebound tenderness. Hypoactive bowel sounds present. Neuro: A&O x3. No focal neurological deficits. Results & Data Results & Data Vital Signs (Past 12 Hours) Vital Signs Temp Pulse Resp BP Pulse Ox O2 Del Method 09/11/24 14:36 97.7 F 58 L 16 116/63 90 Room Air 09/11/24 07:46 97.3 F L 63 20 105/63 92 Room Air PG Care Time/CCT Total # of Minutes Spent Total Time Spent with Patient: Total time spent is greater than 50% in coordination of care (as documented) at patient's floor/unit and/or counseling patient: Coding Level of Care Code 69608 SUB INP/OBS CARE 2/35MIN Diagnoses Small bowel obstruction K56.609 Primary hypertension I10 Hypertension type: primary hypertension CAD in [place] artery I25.10 (2) Hypertension Hypertension type: primary hypertension Qualified Code(s): I10 - Essential (primary) hypertension
[2024-09-11] MEDS: EZETIMIBE 10 MG TAB PO SCH (20:17)
[2024-09-11] MEDS: ATORVASTATIN 40 MG TAB PO SCH (20:17)
[2024-09-12 08:58] LABS: BUN Creatinine Ratio 13.1 (10-20); Calcium 8.8 mg/dl (8.6-10.3); Creatinine Clr Calc Pharmacy 82.8 ml/min; Magnesium 2.1 mg/dl (1.7-2.4); Phosphorus 4.2 mg/dl (2.5-4.9); Potassium 4.3 mmol/L (3.5-5.1)
[2024-09-12] MEDS ORDERED: fentaNYL citrate PF 100 MCG/2 ML VIAL ONE ×2 (09:40→14:19)
[2024-09-12] MEDS ORDERED: NEOSTIGMINE METHYLSULFATE 1 MG/ML 10ML VIAL ONE (09:40)
[2024-09-12] MEDS ORDERED: PROPOFOL IV EMULSION 10 MG/ML 20 ML VIAL IV ONE (09:40)
[2024-09-12] MEDS ORDERED: ONDANSETRON INJ 2 MG/ML 2 ML VIAL ONE (09:40)
[2024-09-12] MEDS ORDERED: MIDAZOLAM HCL 1 MG/ML 2ML VIAL ONE (09:40)
[2024-09-12] MEDS ORDERED: GLYCOPYRROLATE 0.2 MG/ML VIAL ONE (09:40)
[2024-09-12] MEDS ORDERED: ROCURONIUM BROMIDE 10 MG/ML 5 ML VIAL IV ONE (09:40)
[2024-09-12] MEDS ORDERED: DEXAMETHASONE SOD INJ 4 MG/ML VIAL ONE (09:40)
[2024-09-12] MEDS ORDERED: LIDOCAINE 2% 2 ML VIAL/AMP(20MG/ML) INFIL ONE (09:40)
[2024-09-12 10:05] LABS: Basophils # (auto) 0.03 K/uL (0.00-0.20); Basophils % (auto) 0.5 %; Eosinophils # (auto) 0.43 K/uL (0.00-0.50); Eosinophils % (auto) 6.5 %; Hematocrit (blood only) 43.1 % (42.0-52.0); Hemoglobin 14.3 g/dl (14.0-18.0); Immature Granulocytes # (auto) 0.02 K/uL (0.01-0.20); Immature Granulocytes % (auto) 0.3 %; Lymphocytes # (auto) 1.29 K/uL (1.20-3.40); Lymphocytes % (auto) 19.6 %; Mean Corpuscular Hgb Conc 33.2 g/dL (32.0-36.0); Mean Corpuscular Volume 93.3 fL (80.0-100.0); Mean Platelet Volume 9.9 fL (9.4-12.4); Monocytes # (auto) 0.78 K/uL (0.11-0.59); Monocytes % (auto) 11.8 %; Neutrophils # (auto) 4.04 K/uL (1.40-6.50); Neutrophils % (auto) 61.3 %; Platelet Count 248 K/uL (130-400); RDW Coefficient of Variation 12.7 % (11.5-14.5); RDW Standard Deviation 43.6 fL (36.4-46.3); Red Blood Count 4.62 M/uL (4.70-6.10); White Blood Count 6.59 K/ul (4.8-10.8)
[2024-09-12] MEDS ORDERED: ACETAMINOPHEN 1000 MG/100 ML IV IV ONE (11:33)
--- NOTE | 2024-09-12 11:52 | Surgery Progress Note ---
Date of Service September 12, 2024 Assessment & Plan (1) Recurrent ventral hernia: Plan: Patient does not have much progress over the last few days Will plan on a diagnostic laparoscopy, exploratory laparotomy, possible bowel resection, possible explantation of mesh, repair of recurrent umbilical hernia, possible mesh Consent was obtained, risks discussed including bleeding, infection, hernia recurrence, injury to surrounding structures (2) SBO (small bowel obstruction): Admission and Anticipated Discharge Date Admission Date: September 06, 2024 Subjective Patient seen and examined. Still with abdominal pain. Has not had a bowel movement. Passed a small amount of flatus last evening. Afebrile. Review of Systems Constitutional: no fever and no chills Respiratory: no cough and no dyspnea Gastrointestinal: + abdominal pain and + constipation; no nausea and no vomiting Integumentary: no acne and no boil Psychiatric: no behavioral changes and no depression Physical Exam Constitutional: WD/WN, vitals as above Respiratory: normal respiratory effort, lungs clear to auscultation Cardiovascular: RRR, no murmur, no edema Gastrointestinal (Abdomen): Inspection/Auscultation: abdomen normal to inspection; abdomen not distended Percussion/Palpation: + abdomen tender (generalized, most at umbilicus), abdomen soft and + hernia (unable to palpate due to body habitus); no guarding Musculoskeletal: no cyanosis or clubbing, extremities motor strength 5/5 Skin: no rashes, warm and dry Results & Data Vital Signs (Past 12 Hours) Vital Signs Temp Pulse Resp BP Pulse Ox O2 Del Method 09/12/24 11:41 36.7 C 58 L 18 103/67 94 Room Air 09/12/24 08:12 36.6 C 60 16 127/78 97 Room Air PG Care Time/CCT Total # of Minutes Spent Total Time Spent with Patient: Total time spent is greater than 50% in coordination of care (as documented) at patient's floor/unit and/or counseling patient: Coding Level of Care Code 06228 SUB INP/OBS CARE 2/35MIN Diagnoses Recurrent ventral hernia K43.2 SBO (small bowel obstruction) K56.609
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
[2024-09-12] MEDS ORDERED: ATROPINE SULFATE 0.1 MG/ML 10ML SYR IV PRN ×2 (12:03→15:00)
[2024-09-12] MEDS ORDERED: ePHEDrine sulfate 50 MG/ML AMP IV PRN ×2 (12:03→15:00)
[2024-09-12] MEDS ORDERED: ONDANSETRON INJ 2 MG/ML 2 ML VIAL IV PRN (12:03)
[2024-09-12] MEDS: LACTATED RINGER'S 1,000 ML IV SCH ×2 (12:07→18:45)
[2024-09-12] MEDS: ceFAZolin 2000MG 2,000 MG/15 ML SYR IV SCH (12:14)
[2024-09-12] MEDS: ceFAZolin 2,000 MG/15 ML IV PUSH IV ONE (12:59)
[2024-09-12] MEDS ORDERED: KETAMINE HCL 10MG/ML SYR ONE (14:43)
[2024-09-12] MEDS ORDERED: fentaNYL citrate PF 100 MCG/2 ML VIAL IV PRN (15:00)
[2024-09-12] MEDS ORDERED: DexMEDEtomidine HCL IV 100 MCG/ML VIAL IV ONE (15:19)
[2024-09-12] MEDS ORDERED: SUGAMMADEX SODIUM 200 MG/2 ML VIAL IV ONE (15:38)
[2024-09-12] MEDS: BUPIVACAINE 0.25% PF 30 ML VIAL ONE (15:38)
[2024-09-12] MEDS ORDERED: HYDROmorphone INJ 2 MG/ML SYR/VIAL ONE (15:47)
--- NOTE | 2024-09-12 15:54 | Post Operative Brief Note ---
PG Immediate Post Op with CF Date of Surgery September 12, 2024 Pre & Post Diagnosis Operation Date: 09/12/24 12:00 Pre-Op Diagnosis: Reccurent Ventral Hernia, Small Bowel Obstruction Post-Op Diagnosis: Reccurent Ventral Hernia, Small Bowel Obstruction I identified the patient and participated in the time-out.: Yes Procedure Operation Date: 09/12/24 12:00 Actual Procedures p Diagnostic Laparoscopy, Laparascopic Enterolysis, Explantation of Mesh, Conversion to Laparatomy, Small Bowel Resection, Repair of Recurrent Umbilical Hernia(Not Applicable) - Lino Llamas DO Surgeon Lino Llamas DO [employer] Katie Herrera PA-C Estimated Blood Loss 25 Findings See Below Omentum adhered to mesh, 2cm recurrent umbilical hernia superior to the mesh, segment of jejunum with dense adhesions, thickened mesentery Specimens Specimen Description: A: Mesh and Hernia Contents B. Small Bowel Drains Moran Catheter Anesthesia Type General Complications none Disposition Disposition: Recovery Room
--- NOTE | 2024-09-12 16:11 | Operative Report ---
PG Post Operative Report Pre & Post Diagnosis Operation Date: 09/12/24 12:00 Pre-Op Diagnosis: Reccurent Ventral Hernia, Small Bowel Obstruction Post-Op Diagnosis: Reccurent Ventral Hernia, Small Bowel Obstruction I identified the patient and participated in the time-out.: Yes Procedure Operation Date: 09/12/24 12:00 Actual Procedures p Diagnostic Laparoscopy, Laparascopic Enterolysis, Explantation of Mesh, Conversion to Laparatomy, Small Bowel Resection, Repair of Recurrent Umbilical Hernia(Not Applicable) - Lino Llamas DO Surgeon Lino Llamas DO Lithographic Press Feeder Katie Herrera PA-C Estimated Blood Loss 25 Findings See Below Omentum adhered to mesh, 2cm recurrent umbilical hernia superior to the mesh, segment of jejunum with dense adhesions, thickened mesentery Specimens Hernia mesh and contents to pathology Small bowel to pathology Drains None Anesthesia Type General Complications none Disposition Disposition: Recovery Room Indications 64-year-old male with recurrent umbilical hernia and small bowel obstruction Description of Procedure The patient was brought to the operating room and placed in the supine position with left arm tucked. At this time he underwent general endotracheal anesthesia without any problems. He was given appropriate pre-operative antibiotics. His abdomen prepped and draped in the usual sterile fashion. A timeout was called, the procedure was verified as diagnostic laparoscopy, possible laparotomy, possible bowel resection, possible explantation of mesh, possible recurrent umbilical hernia repair, possible mesh. Surgical, nursing and anesthesia teams agreed and the procedure was begun. After injection of 0.25% Marcaine with epinephrine, a Left upper quadrant transverse incision was made and carried down to the fascia using S-retractors. The abdominal wall was then elevated with towel clamps and abdomen entered using the Veress needle confirming position using the saline drop test. Pneumoperitoneum was established. 12mm trocar was placed. Laparoscope was introduced. No injury from entry into the abdomen was visualized after inspection of the abdomen. Two further ports were placed under direct visualization. Both were 5mm ports on the left lateral abdomen. At this time the abdomen was inspected and there was omentum adhered to the old a bdominal wall mesh As well as within the recurrent hernia. Using the harmonic scalpel I was able to take down the adhesions to the old mesh as well as reduce the hernia and its contents. I then removed the old mesh using the harmonic scalpel in its entirety. I was then able to run the small bowel from the ileocecal valve proximally to an area of jejunum that was found that was severely dilated with dense adhesions. Due to the amount of adhesions and needing to get a better look at this portion of jejunum, the decision was made to convert to a laparotomy in the midline. A standard midline incision was made from above the umbilicus to just below the umbilicus using a #10 blade scalpel. This was carried down to the fascia with electrocautery. The fascia was incised in the midline electrocautery and opened in its entirety. I did then run the small amount ligament of Treitz to the ileocecal valve and the area of the proximal to mid jejunum we did find the area that was identified la paroscopically. There was a segment of small bowel that was fairly thickened and dense adhesions on the outside of the bowel and bowel to bowel adhesions as well. I was able to lyse some of these at his recommendations using sharp dissection. The bowel was severely dilated and thickened and was concerning for an underlying process such as malignancy, so a decision to proceed with a small bowel resection was made. A window in the mesentery of healthy appearing small bowel proximal and distal to the affected segment was made with a hemostat. A SHARAD 80 mm blue load stapler was then introduced to transect the small bowel at these points. The mesentery of the small bowel was then taken using the Ligasure device and the bowel was passed off as specimen. A side to side functional end to end small bowel anastomosis was made using a SHARAD 80mm blue load stapler to form the common channel and then another 80mm SHARAD blue load was used to close the resulting enterotomy. The mesenteric defect was closed using a 3-0 Vicryl. At this time the abdomen was washed out using multiple liters of warm saline. The fascia was then closed using 1 looped PDS in a running fashion from both ends closing the 2cm recurrent umbilical hernia in the process. The trocar sites were also closed with joan. Needle and sponge counts were correct x 2. At this time the patient was awoken from anesthesia a nd extubated having remained stable throughout the entire case. The patient was then transported to PACU in stable condition. The physician's commercial loan assistant was present and scrubbed for the entire case. She was essential for positioning, prepping and draping, retraction and exposure, driving the laparoscope, closure of the incisions and placement of the dressings. I attest to the content of the Intraoperative Record and any orders documented therein. Any exceptions are noted below.
[2024-09-12] MEDS: ONDANSETRON INJ 2 MG/ML 2 ML VIAL IV PRN (16:17)
[2024-09-12] MEDS: fentaNYL citrate PF 100 MCG/2 ML VIAL IV PRN (16:17)
[2024-09-12] MEDS: HYDROmorphone INJ 1 MG/ML SYRINGE IV PRN ×2 (16:32→16:52)
[2024-09-12] MEDS: HYDROmorphone INJ 0.5 MG/0.5 ML SYR IV PRN (17:13)
--- NOTE | 2024-09-12 17:19 | Anesthesiology Progress Note ---
Date of Service September 12, 2024 Anesthesia Post Procedure Vital Signs Vital Signs: Temp Pulse Pulse Resp BP Pulse Ox O2 Del Method 09/12/24 17:10 76 14 130/76 94 Oxymask 09/12/24 17:00 74 15 127/76 94 Oxymask 09/12/24 16:50 71 12 122/75 96 Oxymask 09/12/24 16:40 72 13 123/73 95 Oxymask 09/12/24 16:30 68 12 122/78 95 Oxymask 09/12/24 16:20 65 12 113/67 95 Oxymask 09/12/24 16:10 66 12 106/69 93 Oxymask 09/12/24 16:00 36.5 C 68 16 108/63 94 Oxymask 09/12/24 14:52 36.6 C 60 16 161/66 H 93 Room Air 09/12/24 11:41 36.7 C 58 L 18 103/67 94 Room Air 09/12/24 08:12 36.6 C 60 16 127/78 97 Room Air 09/11/24 20:15 36.8 C 64 18 116/69 97 Room Air O2 Flow Rate 09/12/24 17:10 4 09/12/24 17:00 4 09/12/24 16:50 4 09/12/24 16:40 4 09/12/24 16:30 8 09/12/24 16:20 8 09/12/24 16:10 8 09/12/24 16:00 10 09/12/24 14:52 09/12/24 11:41 09/12/24 08:12 09/11/24 20:15 Pain Intensity Medial Abdomen: Pain Intensity: 10 Transfer of Care Handoff Completed per policy Notes Mental Status: alert / awake / arousable and participated in evaluation Patient Amnestic to Procedure: Yes Nausea / Vomiting: adequately controlled Pain: adequately controlled Airway Patency, RR, SpO2: stable & adequate BP & HR: stable & adequate Hydration State: stable & adequate Anesthetic Complications: no major complications apparent and Pt Satisfied with anesthetic care
[2024-09-12] MEDS ORDERED: MoRPHine SULFATE 2 MG/ML CARP IV PRN (18:43)
--- NOTE | 2024-09-12 19:03 | Hospitalist Progress Note ---
Date of Service September 12, 2024 Assessment & Plan (1) Small bowel obstruction: Plan: Presented after multiple days of abdominal pain, nausea, and vomiting - S/p incarcerated umbilical hernia with uneventful herniorrhaphy in Jul [address] Llamas - S/p robotic-assisted laparoscopic radical herniorrhaphy with mesh February 2022,with Dr. Llamas - CT A/P showed interval development of partial SBO on admission - KUB showed large amount of formed stool throughout entire colon on admission - General surgery consulted/following -- s/p Diagnostic Laparoscopy, Laparascopic Enterolysis, Explantation of Mesh, Conversion to Laparatomy, Small Bowel Resection, Repair of Recurrent Umbilical Hernia with Dr. Llamas on 09/12 > Review of operative report reprots EBL 25 cc, and notes that the bowel is severely dilated and thickened with concern for an underlying process such as malignancy --> decided to proceed with small bowel resection - Defer diet advancement to surgical team - Continue Protonix BID - Dilaudid and Zofran PRN -- recommend decreased Dilaudid dose with increased dose frequency to prevent worsened constipation - Encourage ambulation (2) Hypertension: Plan: Continue metoprolol 25mg HS, lisinopril 40mg, amlodipine 5mg Hydralazine PRN with parameters (3) CAD in [place] artery: Plan: S/p acute NSTEMI (2015) with non-obstructive CAD in LAD; no recent echo - Continue amlodipine, aspirin, atorvastatin, ezetimibe, lisinopril, metoprolol Tachycardia - S/p implantable loop recorder with tachycardia noted by CAR[facility] Dr. Yunior Hernandez. s/p [employer] PPM. Observe off telemetry while patient remains in [facility] - K/mag replete, rates stable Plan Pain Management: Oxycodone 5mg + Tramadol 50mg at home - holding both home-scheduled medications Pain regimen adjusted - Continue Dilaudid, increased ambulation recommended COPD: Albuterol/duonebs PRN, incentive spirometer encouraged DVT proph: Heparin CODE STATUS: Full code Admission and Anticipated Discharge Date Admission Date: September 06, 2024 Supervising Physician Co-Signing Physician Notes VASILIY Supervision Note: I did not personally see or examine the patient today, but I verified all turpin points of VASILIY Pace's assessment and plan with the following exceptions/additions: none Subjective Patient seen and evaluated in the PACU after surgery. He is still in moderate- severe post-surgical abdominal pain at this time. He denies chest pain, shortness of breath, difficulty breathing, headache, or lightheadedness. Physical Exam Physical Exam: General: No acute distress, nondiaphoretic, well-developed, well-nourished. Skin: The skin was without rashes, erythema, edema, or bruising. Cardiac: Regular rate and rhythm without murmurs gallops or rubs. Pulm: Clear to auscultation bilaterally, no wheezing. No respiratory distress. 94% on 4 L nasal cannula. Abdominal: Postsurgical dressing in place. Neuro: A&O x3. No focal neurological deficits. Results & Data Results & Data Vital Signs (Past 12 Hours) Vital Signs Temp Pulse Pulse Resp BP Pulse Ox O2 Del Method 09/12/24 18:43 97.7 F 81 18 120/70 94 Room Air, Nasal Cannula 09/12/24 18:20 97.7 F 88 14 108/69 93 Nasal Cannula 09/12/24 18:10 74 16 112/70 94 Nasal Cannula 09/12/24 18:00 78 12 122/72 95 Nasal Cannula 09/12/24 17:50 72 12 108/67 93 Oxymask 09/12/24 17:40 82 16 117/75 93 Oxymask 09/12/24 17:30 72 12 106/59 L 94 Oxymask 09/12/24 17:20 76 14 119/71 92 Oxymask 09/12/24 17:10 76 14 130/76 94 Oxymask 09/12/24 17:00 74 15 127/76 94 Oxymask 09/12/24 16:50 71 12 122/75 96 Oxymask 09/12/24 16:40 72 13 123/73 95 Oxymask 09/12/24 16:30 68 12 122/78 95 Oxymask 09/12/24 16:20 65 12 113/67 95 Oxymask 09/12/24 16:10 66 12 106/69 93 Oxymask 09/12/24 16:00 97.7 F 68 16 108/63 94 Oxymask 09/12/24 14:52 97.9 F 60 16 161/66 H 93 Room Air 09/12/24 11:41 98.1 F 58 L 18 103/67 94 Room Air 09/12/24 08:12 97.9 F 60 16 127/78 97 Room Air O2 Flow Rate 09/12/24 18:43 4 09/12/24 18:20 3 09/12/24 18:10 3 09/12/24 18:00 3 09/12/24 17:50 3 09/12/24 17:40 3 09/12/24 17:30 4 09/12/24 17:20 4 09/12/24 17:10 4 09/12/24 17:00 4 09/12/24 16:50 4 09/12/24 16:40 4 09/12/24 16:30 8 09/12/24 16:20 8 09/12/24 16:10 8 09/12/24 16:00 10 09/12/24 14:52 09/12/24 11:41 09/12/24 08:12 Laboratory Results Reviewed CBC Reviewed BMP PG Care Time/CCT Total # of Minutes Spent Total Time Spent with Patient: Total time spent is greater than 50% in coordination of care (as documented) at patient's floor/unit and/or counseling patient: Coding Level of Care Code 37055 SUB INP/OBS CARE 235MIN Diagnoses Small bowel obstruction K56.609 Primary hypertension I10 Hypertension type: primary hypertension CAD in [place] artery I25.10 (2) Hypertension Hypertension type: primary hypertension Qualified Code(s): I10 - Essential (primary) hypertension
[2024-09-12] MEDS: ACETAMINOPHEN 1,000 MG/100 ML VIAL IV SCH (19:48)
[2024-09-12] MEDS: cefOXitin 2,000 MG in DEXTROSE 5 % MINI-B 50 ML IV SCH (19:51)
[2024-09-12] MEDS: MoRPHine SULFATE 4 MG/ML 1 ML CARP\\VIAL IV PRN (20:51)
[2024-09-13 07:04] LABS: Basophils # (auto) 0.02 K/uL (0.00-0.20); Basophils % (auto) 0.1 %; Hematocrit (blood only) 41.9 % (42.0-52.0); Hemoglobin 13.4 g/dl (14.0-18.0); Immature Granulocytes # (auto) 0.07 K/uL (0.01-0.20); Immature Granulocytes % (auto) 0.4 %; Lymphocytes # (auto) 0.97 K/uL (1.20-3.40); Lymphocytes % (auto) 6.1 %; Mean Corpuscular Volume 93.7 fL (80.0-100.0); Mean Platelet Volume 9.7 fL (9.4-12.4); Monocytes % (auto) 8.8 %; Neutrophils # (auto) 13.36 K/uL (1.40-6.50); Neutrophils % (auto) 84.6 %; Platelet Count 249 K/uL (130-400); RDW Coefficient of Variation 13.2 % (11.5-14.5); RDW Standard Deviation 44.9 fL (36.4-46.3); Red Blood Count 4.47 M/uL (4.70-6.10); White Blood Count 15.82 K/ul (4.8-10.8)
[2024-09-13 07:26] LABS: BUN Creatinine Ratio 13.1 (10-20); Calcium 8.3 mg/dl (8.6-10.3); Creatinine Clr Calc Pharmacy 69.7 ml/min; Potassium 4.6 mmol/L (3.5-5.1)
--- NOTE | 2024-09-13 08:41 | Surgery Progress Note ---
Date of Service September 13, 2024 Assessment & Plan (1) S/P small bowel resection: Plan: POD 1 Diagnostic Laparoscopy, Laparascopic Enterolysis, Explantation of Mesh, Conversion to Laparotomy, Small Bowel Resection, Repair of Recurrent Umbilical Hernia with Dr. Llamas 09/12/24 expected post surgical pain no flatus , mild nausea OOB to void vss dressing saturated , bloody gauze, no active bleeding note, clean dry gauze applied over xeroform , medipore tape continue npo with ice chips for now until return of bowel function WBC 15 continue Mefoxin as above. will add oral oxycodone for pain. also add phenergan for additional nausea control oob stay on chips/sips for now. Admission and Anticipated Discharge Date Admission Date: September 06, 2024 Subjective c/o post operative pain denies cp, sob , flatus , mild nausea Review of Systems Constitutional: no fever and no chills Respiratory: no dyspnea Cardiovascular: no chest pain Gastrointestinal: + abdominal pain and + nausea; no vomiti ng Psychiatric: no confusion Physical Exam Constitutional: cooperative; no acute distress and + uncomfortable Respiratory: normal respiratory effort and able to speak in complete sentences; no respiratory distress Cardiovascular: Rate/Rhythm: regular rate Gastrointestinal (Abdomen): Inspection/Auscultation: + abdominal surgical incision Results & Data Vital Signs (Past 12 Hours) Vital Signs Temp Pulse Resp BP Pulse Ox O2 Del Method O2 Flow Rate 09/13/24 08:05 97.5 F L 71 16 119/71 93 Nasal Cannula 2 09/13/24 03:37 97.3 F L 74 16 110/67 94 Nasal Cannula 2 09/12/24 21:21 97.7 F 73 14 132/71 93 Nasal Cannula 2 Results CBC w Diff Results: RBC 4.47 M/uL (4.70-6.10) L 09/13/24 WBC 15.82 K/ul (4.8-10.8) H 09/13/24 Hgb 13.4 g/dl (14.0-18.0) L 09/13/24 Hct 41.9 % (42.0-52.0) L 09/13/24 MCV 93.7 fL (80.0-100.0) 09/13/24 MCH 30.0 pg (25.0-34.0) 09/13/24 MCHC 32.0 g/dL (32.0-36.0) 09/13/24 RDW Standard Deviation 44.9 fL (36.4-46.3) 09/13/24 RDW Coefficient of Variation 13.2 % (11.5-14.5) 09/13/24 Plt Count 249 K/uL (130-400) 09/13/24 MPV 9.7 fL (9.4-12.4) 09/13/24 Neutrophils (%) (Auto) 84.6 % 09/13/24 Lymphocytes (%) (Auto) 6.1 % 09/13/24 Monocytes # (Auto) 1.40 K/uL (0.11-0.59) H 09/13/24 Eosinophils # (Auto) 0.00 K/uL (0.00-0.50) 09/13/24 Immature Granulocyte % (Auto) 0.4 % 09/13/24 Neutrophils # (Auto) 13.36 K/uL (1.40-6.50) H 09/13/24 Lymphocytes # (Auto) 0.97 K/uL (1.20-3.40) L 09/13/24 Monocytes # (Auto) 1.40 K/uL (0.11-0.59) H 09/13/24 Eosinophils # (Auto) 0.00 K/uL (0.00-0.50) 09/13/24 Basophils # (Auto) 0.02 K/uL (0.00-0.20) 09/13/24 Immature Granulocyte # (Auto) 0.07 K/uL (0.01-0.20) 4 PG Care Time/CCT Total # of Minutes Spent Total Time Spent with Patient: Total time spent is greater than 50% in coordination of care (as documented) at patient's floor/unit and/or counseling patient: Coding Level of Care Code 89855 Post Operative Follow-Up Diagnoses S/P small bowel resection Z90.49
[2024-09-13] MEDS ORDERED: oxyCODONE HCL IR 5 MG TAB (IMMEDIATE RELEASE) PO PRN (10:33)
[2024-09-13] MEDS: oxyCODONE HCL IR 5 MG TAB (IMMEDIATE RELEASE) PO PRN (10:46)
[2024-09-13] MEDS: PROMETHAZINE 12.5 MG/50.5 ML BAG IV PRN (11:51)
--- NOTE | 2024-09-13 13:32 | Hospitalist Progress Note ---
Date of Service September 13, 2024 Assessment & Plan (1) Small bowel obstruction: Plan: Presented after multiple days of abdominal pain, nausea, and vomiting - S/p incarcerated umbilical hernia with uneventful herniorrhaphy in Jul [address] Llamas - S/p robotic-assisted laparoscopic radical herniorrhaphy with mesh February 2022,with Dr. Llamas - CT A/P showed interval development of partial SBO on admission - KUB showed large amount of formed stool throughout entire colon on admission - General surgery consulted/following -- s/p Diagnostic Laparoscopy, Laparoscopic Enterolysis, Explantation of Mesh, Conversion to Laparotomy, Small Bowel Resection, Repair of Recurrent Umbilical Hernia with Dr. Llamas on 09/12 > Review of operative report EBL 25 cc, and notes that the bowel is severely dilated and thickened with concern for an underlying process such as malignancy --> decided to proceed with small bowel resection - Leukocytosis of 15.82, likely reactionary in setting of extensive surgery. Afebrile. 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 Yunior Hernandez. s/p [employer] PPM. Observe off telemetry while patient remains in [facility] - K/mag replete, rates stable Plan Chronic stable conditions: Pain Management: Oxycodone 5mg + Tramadol 50mg at home - holding both home- scheduled medications COPD: Albuterol/duonebs PRN, incentive spirometer encouraged DVT proph: Heparin CODE STATUS: Full code Admission and Anticipated Discharge Date Admission Date: September 06, 2024 Supervising Physician Co-Signing Physician Notes PA Supervision Note: I did not personally see or examine the patient today, but I verified all turpin points of VASILIY Pace's assessment and plan with the following exceptions/additions: none Subjective Patient seen and evaluated at bedside. He reports "feeling rough" today. He reports post-op abdominal pain and nausea. He states general surgery adjusted his pain regimen recently so he hopes to get long lasting relief from that. He denies vomiting or having an appetite. Denies headache, shortness of breath, or chest pain. Physical Exam Physical Exam: General: No acute distress, nondiaphoretic, well-developed, well-nourished. Skin: The skin was without rashes, erythema, edema, or bruising. Cardiac: Regular rate and rhythm without murmurs gallops or rubs. Pulm: Clear to auscultation bilaterally, no wheezing. No respiratory distress. 94% on 4 L nasal cannula. Abdominal: [address], 1 that is soaked through with blood and changed at bedside. Soft, distended secondary to body habitus. No bowel sounds. Neuro: A&O x3. No focal neurological deficits. Results & Data Results & Data Vital Signs (Past 12 Hours) Vital Signs Temp Pulse Resp BP Pulse Ox O2 Del Method O2 Flow Rate 09/13/24 08:50 Nasal Cannula 2 09/13/24 08:05 97.5 F L 71 16 119/71 93 Nasal Cannula 2 09/13/24 03:37 97.3 F L 74 16 110/67 94 Nasal Cannula 2 Laboratory Results Reviewed CBC - leukocytosis likely reactionary; continue to monitor Reviewed BMP PG Care Time/CCT Total # of Minutes Spent Total Time Spent with Patient: Total time spent is greater than 50% in coordination of care (as documented) at patient's floor/unit and/or counseling patient: Coding Level of Care Code 72216 SUB INP/OBS CARE 2/35MIN Diagnoses Small bowel obstruction K56.609 Primary hypertension I10 Hypertension type: primary hypertension CAD in [place] artery I25.10 (2) Hypertension Hypertension type: primary hypertension Qualified Code(s): I10 - Essential (primary) hypertension
[2024-09-13] MEDS: LACTATED RINGER'S 1,000 ML IV SCH (19:15)
[2024-09-14 06:28] LABS: Basophils # (auto) 0.04 K/uL (0.00-0.20); Basophils % (auto) 0.4 %; Eosinophils # (auto) 0.21 K/uL (0.00-0.50); Hematocrit (blood only) 38.5 % (42.0-52.0); Hemoglobin 12.3 g/dl (14.0-18.0); Immature Granulocytes # (auto) 0.05 K/uL (0.01-0.20); Immature Granulocytes % (auto) 0.5 %; Lymphocytes % (auto) 12.5 %; Mean Corpuscular Hemoglobin 30.6 pg (25.0-34.0); Mean Corpuscular Hgb Conc 31.9 g/dL (32.0-36.0); Mean Corpuscular Volume 95.8 fL (80.0-100.0); Mean Platelet Volume 9.9 fL (9.4-12.4); Monocytes # (auto) 1.08 K/uL (0.11-0.59); Monocytes % (auto) 10.4 %; Neutrophils # (auto) 7.72 K/uL (1.40-6.50); Neutrophils % (auto) 74.2 %; Platelet Count 218 K/uL (130-400); RDW Coefficient of Variation 13.3 % (11.5-14.5); Red Blood Count 4.02 M/uL (4.70-6.10)
[2024-09-14 06:53] LABS: BUN Creatinine Ratio 11.2 (10-20); Bilirubin Direct 0.2 mg/dl (0-0.2); Calcium 8.2 mg/dl (8.6-10.3); Creatinine Clr Calc Pharmacy 80.8 ml/min; Magnesium 1.8 mg/dl (1.7-2.4); Phosphorus 2.5 mg/dl (2.5-4.9); Potassium 4.2 mmol/L (3.5-5.1); Total Protein 5.5 gm/dl (6.0-8.3)
--- NOTE | 2024-09-14 09:54 | Surgery Progress Note ---
Date of Service September 14, 2024 Assessment & Plan (1) S/P small bowel resection: Plan: Postoperative day #2 Doing as expected Will let him try clear liquids today Continue to slowly increase activity Admission and Anticipated Discharge Date Admission Date: September 06, 2024 Subjective Patient seen. Doing as expected. Still having considerable discomfort. He is ambulating. The nausea has improved as well. Physical Exam Physical Exam: Alert no acute distress Abdomen is soft with expected tenderness. Dressings are clean and dry Results & Data Vital Signs (Past 12 Hours) Vital Signs Temp Pulse Resp BP Pulse Ox O2 Del Method O2 Flow Rate 09/14/24 07:14 36.3 C L 87 16 144/77 H 92 Nasal Cannula 2 PG Care Time/CCT Total # of Minutes Spent Total Time Spent with Patient: Total time spent is greater than 50% in coordination of care (as documented) at patient's floor/unit and/or counseling patient: Coding Level of Care Code 87007 Post Operative Follow-Up Diagnoses S/P small bowel resection Z90.49
[2024-09-14] MEDS ORDERED: TPN/PPN CONSULT PHARMACY PRN (13:50)
[2024-09-14] MEDS ORDERED: DEXTROSE 10% 1,000 ML IV PRN (13:51)
[2024-09-14] MEDS ORDERED: TPN/PPN CONSULT PHARMACY STA (13:51)
--- NOTE | 2024-09-14 14:16 | Hospitalist Progress Note ---
Date of Service September 14, 2024 Assessment & Plan (1) Small bowel obstruction: Plan: Presented after multiple days of abdominal pain, nausea, and vomiting - S/p incarcerated umbilical hernia with uneventful herniorrhaphy in Jul [address] Llamas - S/p robotic-assisted laparoscopic radical herniorrhaphy with mesh February 2022,with Dr. Llamas - CT A/P showed interval development of partial SBO on admission - KUB showed large amount of formed stool throughout entire colon on admission - General surgery consulted/following -- s/p Diagnostic Laparoscopy, Laparoscopic Enterolysis, Explantation of Mesh, Conversion to Laparotomy, Small Bowel Resection, Repair of Recurrent Umbilical Hernia with Dr. Llamas on 09/12 > Review of operative report EBL 25 cc, and notes that the bowel is severely dilated and thickened with concern for an underlying process such as malignancy --> decided to proceed with small bowel resection - Cefoxitin 2g Q6H given perioperatively x 24 hrs - Started PPN 09/14 as patient has been without decent nutrition for >7 days - Continue Protonix BID - Defer to surgical team for pain regimen - Encourage ambulation -f/u pathology when available (2) Hypertension: Plan: Continue metoprolol 25mg HS, amlodipine 5mg Held lisinopril due to increasing Cr and relatively low postop BPs -- Cr returned to baseline, but BPs remain low/normal so continue to hold lisinopril Hydralazine PRN with parameters (3) CAD in [place] artery: Plan: S/p acute NSTEMI (2015) with non-obstructive CAD in LAD; no recent echo - Continue amlodipine, aspirin, atorvastatin, ezetimibe, metoprolol - Holding ACEi Tachycardia - S/p implantable loop recorder with tachycardia noted by CARDS Dr. Yunior Hernandez. s/p [employer] PPM. Observe off telemetry while patient remains in [facility] - K/mag replete, rates stable Plan Started PPN Chronic stable conditions: Pain Management: Oxycodone 5mg + Tramadol 50mg at home - holding both home- scheduled medications COPD: Albuterol/duonebs PRN, incentive spirometer encouraged DVT proph: Heparin CODE STATUS: Full code Admission and Anticipated Discharge Date Admission Date: September 06, 2024 Supervising Physician Co-Signing Physician Notes PA Supervision Note: I did not personally see or examine the patient today, but I verified all turpin points of PA Gross's assessment and plan with the following exceptions/additions: none Subjective Patient seen and evaluated at bedside with his present. He reports continued abdominal pain. He was advanced to a clear liquid diet for lunch, and reports he only had 2 bites of broth because his pain worsened and became nause ated. Discussed starting PPN. No additional complaints or concerns at this time. Physical Exam Physical Exam: General: No acute distress, nondiaphoretic, well-developed, well-nourished. Skin: The skin was without rashes, erythema, edema, or bruising. Cardiac: Regular rate and rhythm without murmurs gallops or rubs. Pulm: Clear to auscultation bilaterally, no wheezing. No respiratory distress. 90% on room air. Abdominal: [address] Soft, distended secondary to body habitus. No bowel sounds. Neuro: A&O x3. No focal neurological deficits. Results & Data Results & Data Vital Signs (Past 12 Hours) Vital Signs Temp Pulse Resp BP Pulse Ox O2 Del Method O2 Flow Rate 09/14/24 07:58 Room Air 09/14/24 07:14 97.3 F L 87 16 144/77 H 92 Nasal Cannula 2 Laboratory Results Reviewed CBC Reviewed CMP and chemistries PG Care Time/CCT Total # of Minutes Spent Total Time Spent with Patient: Total time spent is greater than 50% in coordination of care (as documented) at patient's floor/unit and/or counseling patient: Coding Level of Care Code 70839 SUB INP/OBS CARE 3/50MIN Diagnoses Small bowel obstruction K56.609 Primary hypertension I10 Hypertension type: primary hypertension CAD in [place] artery I25.10 (2) Hypertension Hypertension type: primary hypertension Qualified Code(s): I10 - Essential (primary) hypertension
--- NOTE | 2024-09-14 14:34 | Pharmacy Report ---
Pharmacy Initial PN Consult Nt - Date of Service September 14, 2024 - [facility] Pharmacy has been consulted on this date to manage parenteral nutrition orders and order appropriate labs. As part of the Nutrition Support Team Guidelines, pharmacy will work in conjunction with dietary when determining the patients caloric needs. - Subjective * The patient is a 64 year old Male admitted on 09/06/24 for SBO. * Patient is to receive parenteral nutrition for NPO > 7 days; * Pertinent PMHx: POD #2 small bowel resection/hernia repair - Objective Vascular Access: * Patient currently has a peripheral line * [Peripheral line was confirmed by IV Team to be acceptable for PPN use on this date.] Height & Weight (Last Documented) Height 5 ft 10 in Weight 129.756 kg Diet Order(s) 09/14/24 Breakfast Diet Intake & Ouput (24hrs) 09/13/24 09/14/24 09/15/24 06:59 06:59 06:59 Intake Total 3218.75 / 3218.75 3136.417 / 3136.417 1695.833 / 1695.833 Output Total 650 / 650 Balance 2568.75 / 2568.75 3136.417 / 3136.417 1695.833 / 1695.833 Selected Laboratory Results 09/14/24 06:01 Sodium 143 Potassium 4.2 Chloride 110 H Carbon Dioxide 24 Anion Gap 9 BUN 14 Creatinine 1.25 BUN/Creatinine Ratio 11.2 Glucose 97 Calcium 8.2 L Phosphorus 2.5 D Magnesium 1.8 Total Bilirubin 1.0 AST 20 ALT 20 Alkaline Phosphatase [address] - Follow Up Nutrition Assessment Start: 09/09/24 11:55 Freq: Status: Active Protocol: Document 09/13/24 09:22 [id number] (Rec: 09/13/24 09:29 [id number]) RD - Initial Nutrition Assessment Start: 09/09/24 11:43 Freq: Status: Active Protocol: Document 09/09/24 11:43 WN (Rec: 09/09/24 11:55 WN [id number]) - Assessment & Plan Assessment: * Appreciate dietitians recommendations for macronutrients. * F: LR @ 100 ml/hr * E: WNL- Phos 2.5 today * N: Albumin 3.0, TG 131, Cl high- will minimize in ppn, BSGs stable Plan: * For Day #1 of PPN administration, the following will be ordered: * Macronutrients: * Amino Acids: 85 grams/day * Dextrose: 100 grams/day * Lipids: 50 grams/day * Micronutrients: * TPN electrolytes: 20 mL/day - Contains 35 mEq Na, 20 mEq K, 4.5 mEq Ca, 5 mEq Mg, 35 mEq Cl, 29.5 mEq Acetate per 20 mL * Sodium chloride: 40 mEq/day * Sodium acetate: 140 mEq/day * Potassium phosphate: 20 mMol/day * Magnesium sulfate: 8.12 mEq/day * Multivitamins: 10 mL/day * Trace elements: 1 mL/day * Total volume of 2125 mL will be infused over 24 hours and will provide 1180 kcal/day * Patient is on PPN which has a maximum mOsm/L of 900. Final osmolarity of current solution is 889.82 mOsm/L. * Labs will be ordered per PN protocol. * Pharmacy will follow and adjust PN orders on a daily basis. Thank you!
[2024-09-14] MEDS: CLINOLIPID 20% IV FAT EMULSION 250 ML IV SCH (16:55)
[2024-09-14] MEDS: [UNRECOGNIZED DRUG - OTHER] IV SCH (16:56)
[2024-09-14] MEDS: PERIPHERAL TPN IV SCH (16:56)
[2024-09-14] MEDS: STOP CLINOLIPID SCH (22:59)
[2024-09-15 07:11] LABS: Basophils # (auto) 0.04 K/uL (0.00-0.20); Basophils % (auto) 0.4 %; Eosinophils # (auto) 0.34 K/uL (0.00-0.50); Eosinophils % (auto) 3.5 %; Hematocrit (blood only) 40.5 % (42.0-52.0); Hemoglobin 12.7 g/dl (14.0-18.0); Immature Granulocytes # (auto) 0.05 K/uL (0.01-0.20); Immature Granulocytes % (auto) 0.5 %; Lymphocytes # (auto) 1.44 K/uL (1.20-3.40); Lymphocytes % (auto) 14.9 %; Mean Corpuscular Hemoglobin 30.3 pg (25.0-34.0); Mean Corpuscular Hgb Conc 31.4 g/dL (32.0-36.0); Mean Corpuscular Volume 96.7 fL (80.0-100.0); Monocytes # (auto) 0.86 K/uL (0.11-0.59); Monocytes % (auto) 8.9 %; Neutrophils # (auto) 6.93 K/uL (1.40-6.50); Neutrophils % (auto) 71.8 %; Platelet Count 231 K/uL (130-400); RDW Coefficient of Variation 13.2 % (11.5-14.5); RDW Standard Deviation 46.9 fL (36.4-46.3); Red Blood Count 4.19 M/uL (4.70-6.10); White Blood Count 9.66 K/ul (4.8-10.8)
[2024-09-15 07:29] LABS: BUN Creatinine Ratio 12.7 (10-20); Calcium 8.4 mg/dl (8.6-10.3); Creatinine Clr Calc Pharmacy 89.1 ml/min; Magnesium 1.8 mg/dl (1.7-2.4); Phosphorus 2.9 mg/dl (2.5-4.9); Potassium 3.8 mmol/L (3.5-5.1)
[2024-09-15] MEDS ORDERED: NALOXONE HCL 0.4 MG/1 ML VIAL/CARP IV PRN (09:05)
--- NOTE | 2024-09-15 09:10 | Surgery Progress Note ---
Date of Service September 15, 2024 Assessment & Plan (1) S/P small bowel resection: Plan: POD#3 dx laparoscopy, Laparoscopic Enterolysis, Explantation of Mesh, Conversion to Laparotomy, Small Bowel Resection, Repair of Recurrent Umbilical Hernia WBC 9.6, Hbg 12.7. Vitals stable Pain not well controlled on current regimen, will start a PUBLICIST and see how he fairs. continue scheduled iv apap Will remain on clears while awaiting return of bowel function Incisions c/d/i Encourage ambulation and pulmonary toilet as above. still in considerable pain. change to PUBLICIST. continue oxy and IV acetaminaphen. cont ambulating. pt at high risk for ileus. monitor bowel fx. nausea currently controlled with phenergan/zofran Admission and Anticipated Discharge Date Admission Date: September 06, 2024 Subjective Patient reports ongoing abdominal pain. Some mild nausea associated with this and minimal appetite for clears. Physical Exam Physical Exam: awake, alert, appears mildly uncomfortable in pain Respiratory: normal respiratory effort Gastrointestinal (Abdomen): Inspection/Auscultation: + abdomen distended (mild) and + abdominal surgical incision (incisions c/d/i with joan, no signs of infection) Percussion/Palpation: + abdomen tender (generalized discomfort ) and abdomen soft Results & Data Vital Signs (Past 12 Hours) Vital Signs Temp Pulse Resp BP Pulse Ox O2 Del Method 09/15/24 07:15 98.2 F 73 16 106/65 90 Room Air 09/14/24 21:42 124/71 PG Care Time/CCT Total # of Minutes Spent Total Time Spent with Patient: Total time spent is greater than 50% in coordination of care (as documented) at patient's floor/unit and/or counseling patient: Coding Level of Care Code 66795 Post Operative Follow-Up Diagnoses S/P small bowel resection Z90.49
[2024-09-15] MEDS: HYDROmorphone PCA 30 MG/30 ML IV PRN (10:42)
[2024-09-15] MEDS ORDERED: ACETAMINOPHEN 1,000 MG/100 ML VIAL IV PRN (11:49)
--- NOTE | 2024-09-15 11:53 | Hospitalist Progress Note ---
Date of Service September 15, 2024 Assessment & Plan (1) Small bowel obstruction: Plan: Presented after multiple days of abdominal pain, nausea, and vomiting - S/p incarcerated umbilical hernia with uneventful herniorrhaphy in Jul [address] Llamas - S/p robotic-assisted laparoscopic radical herniorrhaphy with mesh February 2022,with Dr. Llamas - CT A/P showed interval development of partial SBO on admission - KUB showed large amount of formed stool throughout entire colon on admission - General surg consulted/following -- s/p Diagnostic Laparoscopy, Laparoscopic Enterolysis, Explantation of Mesh, Conversion to Laparotomy, Small Bowel Resection, Repair of Recurrent Umbilical Hernia with Dr. Llamas on 09/12 > Review of operative report EBL 25 cc, and notes that the bowel is severely dilated and thickened with concern for an underlying process such as malignancy --> decided to proceed with small bowel resection > Cefoxitin 2g Q6H given perioperatively x 24 hrs > Follow-up on pathology results when available - Continue PPN (started 09/14) as patient has been without decent nutrition for >7 days - Started on Dilaudid CUSTOMER MARKETING MANAGER pump 09/15 due to uncontrolled pain on previous regimen - Continue Protonix BID - Encourage ambulation (2) Hypertension: Plan: Continue metoprolol 25mg HS, amlodipine 5mg Held lisinopril due to increasing Cr and relatively low postop BPs -- Cr returned to baseline, but BPs remain low/normal so continue to hold lisinopril Hydralazine PRN with parameters (3) CAD in [place] artery: Plan: S/p acute NSTEMI (2015) with non-obstructive CAD in LAD; no recent echo - Continue amlodipine, aspirin, atorvastatin, ezetimibe, metoprolol - Holding ACEi Tachycardia - S/p implantable loop recorder with tachycardia noted by CARDS Dr. Yunior Hernandez. s/p [employer] PPM. Observe off telemetry while patient remains in [facility] - K/mag replete, rates stable Plan Updated at bedside Chronic stable conditions: - Pain Management: Oxycodone 5mg + Tramadol 50mg at home - holding both home- scheduled medications - COPD: Albuterol/duonebs PRN, incentive spirometer encouraged DVT proph: Heparin CODE STATUS: Full code Admission and Anticipated Discharge Date Admission Date: September 06, 2024 Supervising Physician Co-Signing Physician Notes PA Supervision Note: I did not personally see or examine the patient today, but I verified all turpin points of VASILIY Pace's assessment and plan with the following exceptions/additio ns: none Subjective Patient seen and evaluated at bedside with his present. He was started on a Dilaudid CUSTOMER MARKETING MANAGER pump by surgery this morning due to uncontrolled pain with his previous pain regimen. He reports still feeling poorly. He was able to walk a lap in the rodriguez today. He reports mild nausea at this time. States he thinks he passed gas once earlier. Denies any appetite and only had 1 bite of jell-o per his . No additional complaints or concerns at this time. Physical Exam Physical Exam: General: No acute distress, nondiaphoretic, well-developed, well-nourished. Skin: The skin was without rashes, erythema, edema, or bruising. Cardiac: Regular rate and rhythm without murmurs gallops or rubs. Pulm: Diminished breath sounds at bases bilaterally, but otherwise clear to auscultation bilaterally, no wheezing. No respiratory distress. 92% on 2L. Abdominal: [address], clean, dry, intact. Soft, distended secondary to body habitus. No bowel sounds. Neuro: A&O x3. No focal neurological deficits. Results & Data Results & Data Vital Signs (Past 12 Hours) Vital Signs Temp Pulse Resp BP BP Pulse Ox O2 Del Method 09/15/24 10:57 98.2 F 72 18 108/64 92 Nasal Cannula 09/15/24 09:17 Room Air, Nasal Cannula 09/15/24 07:15 98.2 F 73 16 106/65 90 Room Air O2 Flow Rate 09/15/24 10:57 2 09/15/24 09:17 2 09/15/24 07:15 Laboratory Results Reviewed CBC Reviewed chemistries PG Care Time/CCT Total # of Minutes Spent Total Time Spent with Patient: Total time spent is greater than 50% in coordination of care (as documented) at patient's floor/unit and/or counseling patient: Coding Level of Care Code 31898 SUB INP/OBS CARE 2/35MIN Diagnoses Small bowel obstruction K56.609 Primary hypertension I10 Hypertension type: primary hypertension CAD in [place] artery I25.10 (2) Hypertension Hypertension type: primary hypertension Qualified Code(s): I10 - Essential (primary) hypertension
[2024-09-15] MEDS: CLINOLIPID 20% IV FAT EMULSION 250 ML IV SCH (17:30)
[2024-09-15] MEDS: PERIPHERAL TPN IV SCH (17:30)
[2024-09-15] MEDS: [UNRECOGNIZED DRUG - OTHER] IV SCH (17:30)
[2024-09-15] MEDS: STOP CLINOLIPID SCH (22:00)
[2024-09-16 07:33] LABS: BUN Creatinine Ratio 15.1 (10-20); Calcium 8.3 mg/dl (8.6-10.3); Creatinine Clr Calc Pharmacy 105.4 ml/min; Phosphorus 3.5 mg/dl (2.5-4.9); Potassium 3.9 mmol/L (3.5-5.1)
--- NOTE | 2024-09-16 10:28 | Surgery Progress Note ---
Date of Service September 16, 2024 Assessment & Plan (1) SBO (small bowel obstruction): Plan: POD # 4 dx laparoscopy, Laparoscopic Enterolysis, Explantation of Mesh, Conversion to Laparotomy, Small Bowel Resection, Repair of Recurrent Umbilical Hernia Vitals stable Pain better controlled on ADULT HEALTH CLINICAL NURSE SPECIALIST + flatus Incisions c/d/i Plan: Advance to full liquids OOB to chair and ambulate Abdominal binder for compression/support Continue IV ppn for today , possibly discontinue tomorrow if tolerating full liquids Continue antiemetics continue ADULT HEALTH CLINICAL NURSE SPECIALIST for today encourage incentive spirometry Dr. Pitts has seen and examined patient, agrees with above. Admission and Anticipated Discharge Date Admission Date: September 06, 2024 Subjective finally passing some gas but no bowel movement yet feeling slightly nauseated still has not been OOB yet today but did walk hallway last evening no chest pain or shortness of breath urinating without difficulty Physical Exam Constitutional: WD/WN, vitals as above + obese, cooperative and comfortable; no acute distress, not ill appearing and not in distress Respiratory: normal respiratory effort; no respiratory distress, no labored breathing and no retractions Gastrointestinal (Abdomen): Inspection/Auscultation: abdomen normal to inspection, + abdomen distended (mildly) and + abdominal surgical incision (c/d/i with joan) Percussion/Palpation: + abdomen tender (generalized and at midline incision) and abdomen soft; no guarding, abdomen not rigid and abdomen not firm Skin: no rashes, warm and dry Psychiatric: Orientation: alert and oriented x 3 Results & Data Vital Signs (Past 12 Hours) Vital Signs Temp Pulse Resp BP Pulse Ox O2 Del Method O2 Flow Rate 09/16/24 08:51 Nasal Cannula 2 09/16/24 07:40 36.5 C 68 16 129/77 96 Room Air 09/16/24 03:25 36.9 C 74 14 147/78 H 93 Nasal Cannula 2.0 09/15/24 23:03 36.8 C 89 20 146/74 H 92 Nasal Cannula 2.0 Laboratory Results 09/16/24 09/16/24 09/15/24 Range/Units 06:08 05:38 23:51 Sodium 142 (136-145) mmol/L Potassium 3.9 (3.5-5.1) mmol/L Chloride 108 H (98-107) mmol/L Carbon Dioxide 29 (21-32) mmol/L Anion Gap 5 (3-11) BUN 14 (6-23) mg/dl Creatinine 0.93 (0.6-1.4) mg/dl Est Cr Clr Drug Dosing 105.4 ml/min eGFR 91.69 BUN/Creatinine Ratio 15.1 (10-20) Glucose 119 H (70-99(Fasting)) mg/dl POC Glucose 116 H 109 H (70-99) mg/dl Calcium 8.3 L (8.6-10.3) mg/dl Phosphorus 3.5 (2.5-4.9) mg/dl Magnesium 2.0 (1.7-2.4) mg/dl 09/15/24 Range/Units 12:14 Sodium (136-145) mmol/L Potassium (3.5-5.1) mmol/L Chloride (98-107) mmol/L Carbon Dioxide (21-32) mmol/L Anion Gap (3-11) BUN (6-23) mg/dl Creatinine (0.6-1.4) mg/dl Est Cr Clr Drug Dosing ml/min eGFR BUN/Creatinine Ratio (10-20) Glucose (70-99(Fasting)) mg/dl POC Glucose 101 H (70-99) mg/dl Calcium (8.6-10.3) mg/dl Phosphorus (2.5-4.9) mg/dl Magnesium (1.7-2.4) mg/dl
--- NOTE | 2024-09-16 14:37 | Hospitalist Progress Note ---
Date of Service September 16, 2024 Assessment & Plan (1) Small bowel obstruction: Plan: Presented after multiple days of abdominal pain, nausea, and vomiting - S/p incarcerated umbilical hernia with uneventful herniorrhaphy in Jul [address] Llamas - S/p robotic-assisted laparoscopic radical herniorrhaphy with mesh February 2022,with Dr. Llamas - CT A/P showed interval development of partial SBO on admission - KUB showed large amount of formed stool throughout entire colon on admission - General surg consulted/following -- s/p Diagnostic Laparoscopy, Laparoscopic Enterolysis, Explantation of Mesh, Conversion to Laparotomy, Small Bowel Resection, Repair of Recurrent Umbilical Hernia with Dr. Llamas on 09/12 > Review of operative report EBL 25 cc, and notes that the bowel is severely dilated and thickened with concern for an underlying process such as malignancy --> decided to proceed with small bowel resection > Cefoxitin 2g Q6H given perioperatively x 24 hrs > Follow-up on pathology results when available - Continue PPN (started 09/14) as patient has been without decent nutrition for >7 days - Continue Dilaudid FLOWER POT PRESS OPERATOR pump (started 09/15) due to uncontrolled pain on previous regimen - Continue Protonix BID - Encourage ambulation (2) Hypertension: Plan: Continue metoprolol 25mg HS, amlodipine 5mg Held lisinopril due to increasing Cr and relatively low postop BPs -- Cr returned to baseline, but BPs remain low/normal so continue to hold lisinopril Hydralazine PRN with parameters (3) CAD in [place] artery: Plan: S/p acute NSTEMI (2015) with non-obstructive CAD in LAD; no recent echo - Continue amlodipine, aspirin, atorvastatin, ezetimibe, metoprolol - Holding ACEi Tachycardia - S/p implantable loop recorder with tachycardia noted by CARDS Dr. Yunior Hernandez. s/p [employer] PPM. Observe off telemetry while patient remains in [facility] - K/mag replete, rates stable Plan Chronic stable conditions: - Pain Management: Oxycodone 5mg + Tramadol 50mg at home - holding both home- scheduled medications - COPD: Albuterol/duonebs PRN, incentive spirometer encouraged DVT proph: Heparin CODE STATUS: Full code Admission and Anticipated Discharge Date Admission Date: September 06, 2024 Supervising Physician Co-Signing Physician Notes Attending Attestation - Chart reviewed, care plan d/w VASILIY Pace. I agree w/ the turpin components of her documentation. Of note - pathology from his surgery did NOT show malignancy. Clark Cotto MD Subjective Patient seen and evaluated at bedside. He reports "feeling rough but getting better." He remains on Dilaudid FLOWER POT PRESS OPERATOR pump, which does allow decent pain control. He has not been up to walk the rodriguez yet today; encouraged him to do so. He reports the surgical team wanted to advance his diet today, but notes he does not have an appetite. He does report passing gas multiple times. No additional complaints or concerns at this time. Physical Exam Physical Exam: General: No acute distress, nondiaphoretic, well-developed, well-nourished. Skin: The skin was without rashes, erythema, edema, or bruising. Cardiac: Regular rate and rhythm without murmurs gallops or rubs. Pulm: Diminished breath sounds at bases bilaterally, but otherwise clear to auscultation bilaterally, no wheezing. No respiratory distress. 92% on 2L. Abdominal: [address], clean, dry, intact. Soft, distended secondary to body habitus. Hypoactive bowel sounds. Neuro: A&O x3. No focal neurological deficits. Results & Data Results & Data Vital Signs (Past 12 Hours) Vital Signs Temp Pulse Resp BP Pulse Ox O2 Del Method O2 Flow Rate 09/16/24 08:51 Nasal Cannula 2 09/16/24 07:40 97.7 F 68 16 129/77 96 Room Air 09/16/24 03:25 98.4 F 74 14 147/78 H 93 Nasal Cannula 2.0 Laboratory Results Reviewed BMP and chemistries PG Care Time/CCT Total # of Minutes Spent Total Time Spent with Patient: Total time spent is greater than 50% in coordination of care (as documented) at patient's floor/unit and/or counseling patient: Coding Level of Care Code 38690 SUB INP/OBS CARE 2/35MIN Diagnoses Small bowel obstruction K56.609 Primary hypertension I10 Hypertension type: primary hypertension CAD in [place] artery I25.10 (2) Hypertension Hypertension type: primary hypertension Qualified Code(s): I10 - Essential (primary) hypertension
[2024-09-16] MEDS: PERIPHERAL TPN IV SCH (16:04)
[2024-09-16] MEDS: [UNRECOGNIZED DRUG - OTHER] IV SCH (16:04)
[2024-09-16] MEDS: CLINOLIPID 20% IV FAT EMULSION 250 ML IV SCH (16:04)
[2024-09-17 06:45] LABS: Hematocrit (blood only) 41.6 % (42.0-52.0); Hemoglobin 13.6 g/dl (14.0-18.0); Mean Corpuscular Hemoglobin 30.5 pg (25.0-34.0); Mean Corpuscular Hgb Conc 32.7 g/dL (32.0-36.0); Mean Corpuscular Volume 93.3 fL (80.0-100.0); Platelet Count 256 K/uL (130-400); RDW Coefficient of Variation 12.9 % (11.5-14.5); RDW Standard Deviation 43.8 fL (36.4-46.3); Red Blood Count 4.46 M/uL (4.70-6.10); White Blood Count 10.46 K/ul (4.8-10.8)
[2024-09-17 07:11] LABS: BUN Creatinine Ratio 17.7 (10-20); Bilirubin,Total 0.6 mg/dl (0.2-1.0); Calcium 8.3 mg/dl (8.6-10.3); Creatinine Clr Calc Pharmacy 103.3 ml/min; Phosphorus 3.5 mg/dl (2.5-4.9); Potassium 4.1 mmol/L (3.5-5.1)
--- NOTE | 2024-09-17 08:27 | Hospitalist Progress Note ---
Date of Service September 17, 2024 Assessment & Plan (1) Small bowel obstruction: Plan: Presented after multiple days of abdominal pain, nausea, and vomiting - S/p incarcerated umbilical hernia with uneventful herniorrhaphy in Jul [address] Llamas - S/p robotic-assisted laparoscopic radical herniorrhaphy with mesh February 2022,with Dr. Llamas CT A/P showed interval development of partial SBO on admission KUB showed large amount of formed stool throughout entire colon on admission General surg consulted/following s/p Diagnostic Laparoscopy, Laparoscopic Enterolysis, Explantation of Mesh, Conversion to Laparotomy, Small Bowel Resection, Repair of Recurrent Umbilical Hernia with Dr. Llamas on 09/12 -- EBL 25cc, severely dilated bowel with thickening concerning for malignancy however pathology NEGATIVE -- Cefoxitin IV naren-operatively given x 24hr PPN started 09/14 given lack of nutrition, will continue through today Pain control per primary service -- continuing NAILER HAND for today, oxycodone appears to have better results for him. Adv to full liquids per surgery today, +flatus but no BM Abdominal binder for compression/support, OOB to chair/ambulation (has been ambulating with in afternoons) PPI BID continued, can convert to PO BID in AM Titrate O2 as able -CXR w/o acute finding, suspect ongoing O2 needs 2nd to narcotics. Naloxone available if needed. Encourage incentive spirometer Continued inpatient stay, appreciate ongoing assistance/recs from surgery (2) Hypertension: Plan: Continue metoprolol 25mg HS, amlodipine 5mg Held lisinopril due to increasing Cr and relatively low postop BPs -- Cr returned to baseline, but BPs remain low/normal so continue to hold lisinopril for now Hydralazine available if needed (3) CAD in [place] artery: Plan: S/p acute NSTEMI (2015) with non-obstructive CAD in LAD; no recent echo - Continue amlodipine, aspirin, atorvastatin, ezetimibe, metoprolol - Holding ACEi as above Tachycardia - S/p implantable loop recorder with tachycardia noted by [facility] Dr. Yunior Hernandez. s/p [employer] PPM. Observe off telemetry while patient remains in [facility] - K/mag replete, rates stable Plan Chronic stable conditions: - Pain Management: Oxycodone 5mg + Tramadol 50mg at home - holding both home- scheduled medications - COPD: Albuterol/duonebs PRN, Denies SOB but ongoing O2 use and NOT on O2 at baseline CXR as above negative and continued use of incentive spirometer encouarged. DVT proph: Heparin SQ BID ordered last week by myself however did go to OR and was placed on hold. Message to primary service sent to ensure able to resume --> RESUMING 09/17 Dispo: ongoing inpatient stay, diet adv to full liquids per surgery. ambulation/incentive spirometer encouraged. PT/OT consults placed Admission and Anticipated Discharge Date Admission Date: September 06, 2024 Supervising Physician Co-Signing Physician Notes The patient was not seen by me. The chart was reviewed. Case discussed with VASILIY Wyatt. Agree with assessment and plan Subjective Evaluated this morning, resting in bed. Having a rough night overnight, not much improvement with the Dilaudid NAILER HAND and wants to try and stick with the increased oxycodone as lasting longer. Will have surgery adjust NAILER HAND pump, can consider pain management if needed. No CP/SOB, does report had some increased gas overnight but not much of an appetite. Has both incisional pain as well as gas discomfort, incision looks well. Incentive spirometer encouraged, CXR negative. Suspect drops w/ O2 from NAILER HAND. He has been ambulating in the afternoons with his , continue to encouraged. Remains on liquid diet and discussed would not advance unless discussed by surgery or moving his bowels. Questions/concerns addressed at this time. Physical Exam 2 Physical Exam: General: 64yo male laying in bed, slightly uncomfortable but NAD, wanting to avoid NAILER HAND HEENT: head atraumatic, normocephalic, mm slightly dry, trachea midline Resp: CTA, slightly diminished in the bases but no w/c/r, on 2L w/ NAILER HAND CV: RRR, +systolic murmur, no pitting edema/calf tenderness, pulses present GI: +BS throughout but slow, +distension (slightly less), +tenderness to palpation around incisions (no drainage), voluntary guarding but no rebound no root MSK/Neuro: nonfocal, answering questions appropriately, not confused Psych: AOx3, cooperative with exam Results & Data Results & Data Vital Signs (Past 12 Hours) Vital Signs Temp Pulse Resp BP BP Pulse Ox O2 Del Method 09/17/24 07:18 37.0 C 65 18 110/64 93 Nasal Cannula 09/17/24 04:50 71 93 Nasal Cannula 09/17/24 03:12 36.9 C 84 16 130/68 94 Nasal Cannula 09/17/24 00:05 37.1 C 66 18 128/72 96 Nasal Cannula O2 Flow Rate 09/17/24 07:18 2 09/17/24 04:50 2 09/17/24 03:12 2 09/17/24 00:05 2 Laboratory Results 09/17/24 05:47 09/17/24 05:47 Diagnostic Findings Chest X-Ray 09/17/24 08:26 XR chest 1V portable CLINICAL HISTORY: ongoing hypoxia, ?atelectasis COMPARISON STUDY: Chest CT January 11, 2024. Chest radiograph March 08, 2022. FINDINGS: Left clavicular internal fixation is partially imaged. Electronic device projects over the left chest. There is no pneumothorax or pleural effusion. There is no consolidation or evidence for pulmonary edema. Cardiomediastinal silhouette is stable. IMPRESSION: No acute cardiopulmonary findings. ACT 112: Negative or not required by law. Electronically signed by: Rosendo Infante M.D. 09/17/2024 8:52 AM PG Care Time/CCT Total # of Minutes Spent Total Time Spent with Patient: Total time spent is greater than 50% in coordination of care (as documented) at patient's floor/unit and/or counseling patient: Coding Level of Care Code 87533 SUB INP/OBS CARE 3/50MIN Diagnoses Small bowel obstruction K56.609 Primary hypertension I10 Hypertension type: primary hypertension CAD in [place] I25.10 (2) Hypertension Hypertension type: primary hypertension Qualified Code(s): I10 - Essential (primary) hypertension
--- NOTE | 2024-09-17 08:54 | XRay Report ---
XR chest 1V portable CLINICAL HISTORY: ongoing hypoxia, ?atelectasis COMPARISON STUDY: Chest CT January 11, 2024. Chest radiograph March 08, 2022. FINDINGS: Left clavicular internal fixation is partially imaged. Electronic device projects over the left chest. There is no pneumothorax or pleural effusion. There is no consolidation or evidence for p ulmonary edema. Cardiomediastinal silhouette is stable. IMPRESSION: No acute cardiopulmonary findings. ACT 112: Negative or not required by law. Electronically signed by: Rosendo Infante M.D. 09/17/2024 8:52 AM
--- NOTE | 2024-09-17 11:47 | Surgery Progress Note ---
Date of Service September 17, 2024 Assessment & Plan (1) SBO (small bowel obstruction): Plan: POD # 5 dx laparoscopy, Laparoscopic Enterolysis, Explantation of Mesh, Conversion to Laparotomy, Small Bowel Resection, Repair of Recurrent Umbilical Hernia Vitals stable Pain better controlled on oral oxycodone now + flatus Incisions c/d/I + nausea and bloating, low appetite Plan: Advance to full liquids OOB to chair and ambulate as much as possible to increase GI motility Abdominal binder for compression/support Continue antiemetics continue oral pain meds prn encourage incentive spirometry continue medical management Dr. Pitts has seen and examined patient, agrees with above. Admission and Anticipated Discharge Date Admission Date: September 06, 2024 Subjective feeling better this am, had rough night with nausea and pain Dilaudid [employer] causing nausea would like it discontinued pain controlled with oxycodone ambulated hallway last night and had a lot of flatus after but has not been out of bed ambulating since just to bathroom and back still no appetite feels slightly bloated pain 01/30 Physical Exam Constitutional: WD/WN, vitals as above + obese, cooperative and comfortable; no acute distress and not ill appearing Respiratory: normal respiratory effort; no respiratory distress, no labored breathing and no retractions Gastrointestinal (Abdomen): Inspection/Auscultation: + abdomen distended, + abdominal surgical incision and + hypoactive bowel sounds; + abnormal bowel sounds Percussion/Palpation: + abdomen tender (mid abdomen and at midline incision site) and abdomen soft; no guarding, abdomen not rigid and abdomen not firm Skin: no rashes, warm and dry Psychiatric: Orientation: alert and oriented x 3 Results & Data Vital Signs (Past 12 Hours) Vital Signs Temp Pulse Resp BP BP Pulse Ox O2 Del Method 09/17/24 10:03 67 104/57 L 93 Nasal Cannula 09/17/24 09:08 93 Nasal Cannula 09/17/24 07:18 37.0 C 65 18 110/64 93 Nasal Cannula 09/17/24 04:50 71 93 Nasal Cannula 09/17/24 03:12 36.9 C 84 16 130/68 94 Nasal Cannula 09/17/24 00:05 37.1 C 66 18 128/72 96 Nasal Cannula O2 Flow Rate 09/17/24 10:03 2 09/17/24 09:08 2 09/17/24 07:18 2 09/17/24 04:50 2 09/17/24 03:12 2 09/17/24 00:05 2 Laboratory Results 09/17/24 09/17/24 09/17/24 Range/Units 11:54 07:09 05:47 WBC 10.46 (4.8-10.8) K/ul RBC 4.46 L (4.70-6.10) M/uL Hgb 13.6 L (14.0-18.0) g/dl Hct 41.6 L (42.0-52.0) % MCV 93.3 (80.0-100.0) fL MCH 30.5 (25.0-34.0) pg MCHC 32.7 (32.0-36.0) g/dL RDW Std Deviation 43.8 (36.4-46.3) fL RDW Coeff of Bibi 12.9 (11.5-14.5) % Plt Count 256 (130-400) K/uL MPV 10.0 (9.4-12.4) fL Sodium 140 (136-145) mmol/L Potassium 4.1 (3.5-5.1) mmol/L Chloride 107 (98-107) mmol/L Carbon Dioxide 26 (21-32) mmol/L Anion Gap 7 (3-11) BUN 17 (6-23) mg/dl Creatinine 0.96 (0.6-1.4) mg/dl Est Cr Clr Drug Dosing 103.3 ml/min eGFR 88.27 BUN/Creatinine Ratio 17.7 (10-20) Glucose 122 H (70-99(Fasting)) mg/dl POC Glucose 100 H 112 H (70-99) mg/dl Calcium 8.3 L (8.6-10.3) mg/dl Phosphorus 3.5 (2.5-4.9) mg/dl Magnesium 2.0 (1.7-2.4) mg/dl Total Bilirubin 0.6 (0.2-1.0) mg/dl Alkaline Phosphatase 56 (34-104) U/L 09/17/24 09/16/24 Range/Units 01:35 19:56 WBC (4.8-10.8) K/ul RBC (4.70-6.10) M/uL Hgb (14.0-18.0) g/dl Hct (42.0-52.0) % MCV (80.0-100.0) fL MCH (25.0-34.0) pg MCHC (32.0-36.0) g/dL RDW Std Deviation (36.4-46.3) fL RDW Coeff of Bibi (11.5-14.5) % Plt Count (130-400) K/uL MPV (9.4-12.4) fL Sodium (136-145) mmol/L Potassium (3.5-5.1) mmol/L Chloride (98-107) mmol/L Carbon Dioxide (21-32) mmol/L Anion Gap (3-11) BUN (6-23) mg/dl Creatinine (0.6-1.4) mg/dl Est Cr Clr Drug Dosing ml/min eGFR BUN/Creatinine Ratio (10-20) Glucose (70-99(Fasting)) mg/dl POC Glucose 127 H 103 H (70-99) mg/dl Calcium (8.6-10.3) mg/dl Phosphorus (2.5-4.9) mg/dl Magnesium (1.7-2.4) mg/dl Total Bilirubin (0.2-1.0) mg/dl Alkaline Phosphatase (34-104) U/L
[2024-09-17] MEDS: POLYETHYLENE (MIRALAX) 17 GM PACK PO STA (13:22)
[2024-09-17] MEDS: CLINOLIPID 20% IV FAT EMULSION 250 ML IV SCH (16:06)
[2024-09-17] MEDS: PERIPHERAL TPN IV SCH (16:09)
[2024-09-17] MEDS: [UNRECOGNIZED DRUG - OTHER] IV SCH (16:09)
[2024-09-17] MEDS: DOCUSATE SODIUM 100 MG CAP PO SCH (21:12)
[2024-09-18 07:40] LABS: BUN Creatinine Ratio 19.6 (10-20); Calcium 8.3 mg/dl (8.6-10.3); Creatinine Clr Calc Pharmacy 88.6 ml/min; Magnesium 1.9 mg/dl (1.7-2.4); Phosphorus 3.9 mg/dl (2.5-4.9); Potassium 4.4 mmol/L (3.5-5.1)
--- NOTE | 2024-09-18 07:50 | Hospitalist Progress Note ---
Date of Service September 18, 2024 Assessment & Plan (1) Small bowel obstruction: Plan: Presented after multiple days of abdominal pain, nausea, and vomiting - S/p incarcerated umbilical hernia with uneventful herniorrhaphy in Jul [address] Llamas - S/p robotic-assisted laparoscopic radical herniorrhaphy with mesh February 2022,with Dr. Llamas CT A/P showed interval development of partial SBO on admission KUB showed large amount of formed stool throughout entire colon on admission General surg consulted/following s/p Diagnostic Laparoscopy, Laparoscopic Enterolysis, Explantation of Mesh, Conversion to Laparotomy, Small Bowel Resection, Repair of Recurrent Umbilical Hernia with Dr. Llamas on 09/12 -- EBL 25cc, severely dilated bowel with thickening concerning for malignancy however pathology NEGATIVE -- Cefoxitin IV naren-operatively given x 24hr PPN started 09/14 given lack of nutrition, will continue through 09/17-09/18 Pain control per primary service but appears improved on higher PO oxycodone rather than [employer] Adv to full liquids 09/18, +flatus. Given miralax PO x 1 and colace by primary service 09/17, +BM last evening Converted PPI IV to PO BID Abdominal binder for compression/support BPs borderline, amlodipine held this morning, lisinopril remains on hold. Renal function stable/borderline and will continue to hold for now but hopefully able to resume in AM Diet advancement per primary service if feeling ok to adv to low fiber diet this evening but will continue liquids for now/colace BID as ordered by surgery Monitor electrolytes/replacement as indicated Repeat PT/OT consults placed and ambulation encouarged (2) Hypertension: Plan: Continue metoprolol 25mg HS, amlodipine 5mg w/ hold parameters BP stable but borderline (asymptomatic 96/57 this morning) and will continue to hold lisinopril for now but hopefully able to resume in AM (3) CAD in [place] artery: Plan: S/p acute NSTEMI (2015) with non-obstructive CAD in LAD; no recent echo - Continue amlodipine, aspirin, atorvastatin, ezetimibe, metoprolol - Holding ACEi as above Tachycardia - S/p implantable loop recorder with tachycardia noted by [facility] Dr. Yunior Hernandez. s/p [employer] PPM. Observe off telemetry while patient remains in [facility] - K/mag replete, rates stable Plan Chronic stable conditions: COPD: Albuterol/duonebs PRN, Denies SOB but ongoing O2 use and NOT on O2 at baseline CXR repeat NEGATIVE, suspected 2nd to opiates and continued IS rec/encouraged and remains on ROOM AIR DVT proph: Heparin SQ BID RESUMED per ok w/ surgery as had been placed on hold for OR last week. Continue. Dispo: liquid diet for now, advancement per surgery however will continue current for now/continue colace and encouraged ambulation. PT/OT consults re- ordered post-op and hopefully able to dc in next ~24-48 hours pending bowel function and pain control. Likely dc PPN today as +BM and tolerating diet Admission and Anticipated Discharge Date Admission Date: September 06, 2024 Supervising Physician Co-Signing Physician Notes The patient was not seen by me. The chart was reviewed. Case discussed with VASILIY Wyatt. Agree with assessment and plan Subjective Evaluated this morning, moved his bowels last evening. Increased flatus. Still as abdominal pain, controlled with oral medications and reports improving but remains distended. On room air. No LE edema Did have pain to his left arm from IV site infiltration this morning. No significant swelling and does have pulses, rec for elevation and will have nursing provide heat. Seen by surgery, he reports possible advancement of diet after lunch? No CP/SOB, no lightheaded/dizziness with BP and discussed lisinopril remains on hold to prevent drop but will hopefully resume in AM pending repeat measurements. Questions/concerns addressed at this time. Physical Exam 2 Physical Exam: General: 64yo male laying in bed, slightly uncomfortable with recent IV infiltration but reporting improving with medication, pulses present/no evidence for DVT at present time HEENT: head atraumatic, normocephalic, mm slightly dry but improved, trachea midline Resp: CTA, slightly diminished in the bases but no w/c/r, on ROOM AIR 94% CV: RRR, +systolic murmur, no pitting edema/calf tenderness, pulses present GI: +BS throughout (slow but slightly increased), remains distended, tender to palpation of incisions, voluntary guarding but no rigidity no root MSK/Neuro: nonfocal, answering questions appropriately, not confused Psych: AOx3, cooperative with exam Results & Data Results & Data Vital Signs (Past 12 Hours) Vital Signs Temp Pulse Resp BP Pulse Ox O2 Del Method 09/18/24 07:19 36.7 C 67 16 96/57 L 94 Room Air 09/17/24 21:04 36.8 C 52 L 18 143/76 H 96 Room Air Laboratory Results 09/17/24 05:47 09/18/24 07:01 Diagnostic Findings XR chest 1V portable CLINICAL HISTORY: ongoing hypoxia, ?atelectasis COMPARISON STUDY: Chest CT January 11, 2024. Chest radiograph March 08, 2022. FINDINGS: Left clavicular internal fixation is partially imaged. Electronic device projects over the left chest. There is no pneumothorax or pleural effusion. There is no consolidation or evidence for pulmonary edema. Cardiomediastinal silhouette is stable. IMPRESSION: No acute cardiopulmonary findings. ACT 112: Negative or not required by law. Electronically signed by: Rosendo Infante M.D. 09/17/2024 8:52 AM Dictated: 09/17/24 0850 Transcribed: 09/17/24 0850 PG Care Time/CCT Total # of Minutes Spent Total Time Spent with Patient: Total time spent is greater than 50% in coordination of care (as documented) at patient's floor/unit and/or counseling patient: Coding Level of Care Code 88323 SUB INP/OBS CARE 2/35MIN Diagnoses Small bowel obstruction K56.609 Primary hypertension I10 Hypertension type: primary hypertension CAD in [place] artery I25.10 (2) Hypertension Hypertension type: primary hypertension Qualified Code(s): I10 - Essential (primary) hypertension
--- NOTE | 2024-09-18 09:24 | Surgery Progress Note ---
Date of Service September 18, 2024 Assessment & Plan (1) SBO (small bowel obstruction): Plan: POD # 6 dx laparoscopy, Laparoscopic Enterolysis, Explantation of Mesh, Conversion to Laparotomy, Small Bowel Resection, Repair of Recurrent Umbilical Hernia Vitals stable Pain better controlled + BM Incisions c/d/I + nausea intermittent and less bloating after BM Plan: Continue full liquids for now, can stop PPN after lunch today another dose of Miralax, continue Colace BID OOB to chair and ambulate as much as possible to increase GI motility Abdominal binder for compression/support Continue antiemetics continue oral pain meds prn encourage incentive spirometry continue medical management Admission and Anticipated Discharge Date Admission Date: September 06, 2024 Subjective feeling better finally had bm last night, still passing sid this am tolerated full liquids this am nausea intermittent improving pain controlled ambulating no shortness of breath, using incentive, now off oxygen Physical Exam Constitutional: WD/WN, vitals as above + morbidly obese, cooperative and comfortable; no acute distress and not ill appearing Respiratory: normal respiratory effort; no respiratory distress, no labored breathing and no retractions Gastrointestinal (Abdomen): Inspection/Auscultation: abdomen normal to inspection, normal bowel sounds and + abdominal surgical incision (c/d/i dressing, lap sites c/d/i with joan); abdomen not distended Percussion/Palpation: + abdomen tender and abdomen soft; no guarding, abdomen not rigid and abdomen not firm Skin: no rashes, warm and dry Psychiatric: Orientation: alert and oriented x 3 Results & Data Vital Signs (Past 12 Hours) Vital Signs Temp Pulse Resp BP Pulse Ox O2 Del Method 09/18/24 07:19 36.7 C 67 16 96/57 L 94 Room Air Laboratory Results 09/18/24 09/18/24 09/18/24 Range/Units 07:01 06:03 00:12 Sodium 137 (136-145) mmol/L Potassium 4.4 (3.5-5.1) mmol/L Chloride 103 (98-107) mmol/L Carbon Dioxide 28 (21-32) mmol/L Anion Gap 6 (3-11) BUN 22 (6-23) mg/dl Creatinine 1.12 (0.6-1.4) mg/dl Est Cr Clr Drug Dosing 88.6 ml/min eGFR 73.36 BUN/Creatinine Ratio 19.6 (10-20) Glucose 106 H (70-99(Fasting)) mg/dl POC Glucose 108 H 110 H (70-99) mg/dl Calcium 8.3 L (8.6-10.3) mg/dl Phosphorus 3.9 (2.5-4.9) mg/dl Magnesium 1.9 (1.7-2.4) mg/dl 09/17/24 09/17/24 Range/Units 18:10 11:54 Sodium (136-145) mmol/L Potassium (3.5-5.1) mmol/L Chloride (98-107) mmol/L Carbon Dioxide (21-32) mmol/L Anion Gap (3-11) BUN (6-23) mg/dl Creatinine (0.6-1.4) mg/dl Est Cr Clr Drug Dosing ml/min eGFR BUN/Creatinine Ratio (10-20) Glucose (70-99(Fasting)) mg/dl POC Glucose 91 100 H (70-99) mg/dl Calcium (8.6-10.3) mg/dl Phosphorus (2.5-4.9) mg/dl Magnesium (1.7-2.4) mg/dl
[2024-09-18] MEDS: POLYETHYLENE (MIRALAX) 17 GM PACK PO STA (09:41)
[2024-09-18] MEDS: PANTOprazole 40 MG TAB PO SCH (21:23)
[2024-09-19 06:06] LABS: Basophils # (auto) 0.05 K/uL (0.00-0.20); Basophils % (auto) 0.5 %; Eosinophils # (auto) 0.32 K/uL (0.00-0.50); Eosinophils % (auto) 3.1 %; Hematocrit (blood only) 38.2 % (42.0-52.0); Hemoglobin 12.3 g/dl (14.0-18.0); Immature Granulocytes # (auto) 0.06 K/uL (0.01-0.20); Immature Granulocytes % (auto) 0.6 %; Lymphocytes # (auto) 1.57 K/uL (1.20-3.40); Lymphocytes % (auto) 15.3 %; Mean Corpuscular Hemoglobin 29.9 pg (25.0-34.0); Mean Corpuscular Hgb Conc 32.2 g/dL (32.0-36.0); Mean Corpuscular Volume 92.7 fL (80.0-100.0); Mean Platelet Volume 10.4 fL (9.4-12.4); Monocytes # (auto) 1.29 K/uL (0.11-0.59); Monocytes % (auto) 12.6 %; Neutrophils # (auto) 6.95 K/uL (1.40-6.50); Neutrophils % (auto) 67.9 %; Platelet Count 295 K/uL (130-400); RDW Coefficient of Variation 13.1 % (11.5-14.5); RDW Standard Deviation 44.5 fL (36.4-46.3); Red Blood Count 4.12 M/uL (4.70-6.10); White Blood Count 10.24 K/ul (4.8-10.8)
[2024-09-19 06:22] LABS: BUN Creatinine Ratio 15.5 (10-20); Calcium 8.2 mg/dl (8.6-10.3); Creatinine Clr Calc Pharmacy 85.8 ml/min; Magnesium 1.9 mg/dl (1.7-2.4); Phosphorus 4.1 mg/dl (2.5-4.9); Potassium 4.4 mmol/L (3.5-5.1)
--- NOTE | 2024-09-19 12:48 | Hospitalist Progress Note ---
Date of Service September 19, 2024 Assessment & Plan (1) Small bowel obstruction: Plan: Presented after multiple days of abdominal pain, nausea, and vomiting - S/p incarcerated umbilical hernia with uneventful herniorrhaphy in Jul [address] Llamas - S/p robotic-assisted laparoscopic radical herniorrhaphy with mesh February 2022,with Dr. Llamas CT A/P showed interval development of partial SBO on admission KUB showed large amount of formed stool throughout entire colon on admission General surg consulted/following s/p Diagnostic Laparoscopy, Laparoscopic Enterolysis, Explantation of Mesh, Conversion to Laparotomy, Small Bowel Resection, Repair of Recurrent Umbilical Hernia with Dr. Llamas on 09/12 -- EBL 25cc, severely dilated bowel with thickening concerning for malignancy, however pathology NEGATIVE -- Cefoxitin IV naren-operatively given x 24hr PPN provided 09/14-09/18; now diet advanced to low fiber Pain control per primary service but appears improved on higher PO oxycodone rather than [place] Continue bowel regimen; +BMs and flatus Continue PPI BID Continue abdominal binder for compression/support when ambulating BPs borderline low, amlodipine held this morning, lisinopril remains on hold Monitor electrolytes/replacement as indicated Repeat PT/OT evals -- recommending walker for use at home (2) Hypertension: Plan: Continue metoprolol 25mg HS, amlodipine 5mg w/ hold parameters BP stable but borderline low and will continue to hold lisinopril for now (3) CAD in [place] artery: Plan: S/p acute NSTEMI (2015) with non-obstructive CAD in LAD; no recent echo - Continue amlodipine, aspirin, atorvastatin, ezetimibe, metoprolol - Holding ACEi as above Tachycardia - S/p implantable loop recorder with tachycardia noted by [facility] Dr. Yunior Hernandez. s/p [employer] PPM. Observe off telemetry while patient remains in [facility] - K/mag replete, rates stable Plan Updated at bedside Advanced diet -- discussed with surgery who approved Chronic stable conditions: COPD: Albuterol/duonebs PRN CXR repeat NEGATIVE, suspected 2nd to opiates and continued IS rec/encouraged and remains on ROOM AIR DVT proph: Heparin SQ BID RESUMED per ok w/ surgery as had been placed on hold for OR last week. Continue. Dispo: Started low fiber diet 09/19; monitor tolerance. Anticipate DC 09/20 if cleared by surgery and well-tolerating low fiber diet. PT recommending walker for use at home CODE STATUS: Full code Admission and Anticipated Discharge Date Admission Date: September 06, 2024 Supervising Physician Co-Signing Physician Notes The patient was not seen by me. The chart was reviewed. Case discussed with VASILIY Kelley. Agree with assessment and plan Subjective Patient seen and evaluated at bedside with his present. He reports doing better today. He has been ambulating in the halls. He has had 3 bowel movements and continues to pass gas. He is eager for diet advancement. He denies nausea or vomiting at this time. His pain remains but is tolerable. He notes he had to have his abdominal dressings changed twice this morning due to blood seeping through them. No additional complaints or concerns at this time. Physical Exam Physical Exam: General: No acute distress, nondiaphoretic, well-developed, well-nourished. Skin: The skin was without rashes, erythema, edema, or bruising. Cardiac: Regular rate and rhythm without murmurs gallops or rubs. Pulm: Diminished breath sounds at bases bilaterally, but otherwise clear to auscultation bilaterally, no wheezing. No respiratory distress. 97% on room air. Abdominal: [address], clean, dry, intact. Soft, distended secondary to body habitus. Hypoactive bowel sounds. Neuro: A&O x3. No focal neurological deficits. Results & Data Results & Data Vital Signs (Past 12 Hours) Vital Signs Temp Pulse Resp BP Pulse Ox O2 Del Method 09/19/24 07:02 97.9 F 76 16 95/50 L 97 Room Air Laboratory Results Reviewed CBC Reviewed BMP PG Care Time/CCT Total # of Minutes Spent Total Time Spent with Patient: Total time spent is greater than 50% in coordination of care (as documented) at patient's floor/unit and/or counseling patient: Coding Level of Care Code 69669 SUB INP/OBS CARE 3/50MIN Diagnoses Small bowel obstruction K56.609 Primary hypertension I10 Hypertension type: primary hypertension CAD in [place] artery I25.10 (2) Hypertension Hypertension type: primary hypertension Qualified Code(s): I10 - Essential (primary) hypertension
[2024-09-20 07:36] LABS: BUN Creatinine Ratio 14.1 (10-20); Calcium 8.2 mg/dl (8.6-10.3); Creatinine Clr Calc Pharmacy 77.3 ml/min; Magnesium 1.9 mg/dl (1.7-2.4); Phosphorus 4.2 mg/dl (2.5-4.9); Potassium 4.4 mmol/L (3.5-5.1)
--- NOTE | 2024-09-20 08:12 | Hospitalist Progress Note ---
Date of Service September 20, 2024 Assessment & Plan (1) Small bowel obstruction: Plan: Presented after multiple days of abdominal pain, nausea, and vomiting - S/p incarcerated umbilical hernia with uneventful herniorrhaphy in Jul [address] Llamas - S/p robotic-assisted laparoscopic radical herniorrhaphy with mesh February 2022,with Dr. Llamas CT A/P showed interval development of partial SBO on admission KUB showed large amount of formed stool throughout entire colon on admission General surg consulted/following s/p Diagnostic Laparoscopy, Laparoscopic Enterolysis, Explantation of Mesh, Conversion to Laparotomy, Small Bowel Resection, Repair of Recurrent Umbilical Hernia with Dr. Llamas on 09/12 -- EBL 25cc, severely dilated bowel with thickening concerning for malignancy, however pathology NEGATIVE -- Cefoxitin IV naren-operatively given x 24hr PPN provided 09/14-09/18; now diet advanced to low fiber , +BM/flatus Pain control: oxycodone 10mg appearing adequate, no longer on TV [employer] PPI PO BID continued BPs borderline, amlodipine/lisinopril on hold Electrolytes stable, BUN/Cr 18/1.28 Is having some increased bleeding from incision site as well as increased bruising/ecchymosis, ?hematoma to LLQ and will add repeat CBC for today and discussed continued ambulation but holding off further Heparin SQ for now and continued monitoring of blood counts/exam given complicated course and prevention of readmission. If improvement/stable blood counts and pain control can dc on low fiber diet/PO pain control in AM but if further drops or fever/symptoms would reach back out to surgery to consider repeat imaging. (2) Hypertension: Plan: Remains on metoprolol 25mg HS Amlodipine/lisinopril held w/ BP and will monitor off for now. Ambulating without lightheaded/dizziness reported. May need to hold 1 vs both at dc pending repeat measurements/course (3) CAD in [place] artery: Plan: S/p acute NSTEMI (2015) with non-obstructive CAD in LAD; no recent echo Continue statin/metoprolol, aspirin. Losartan as outlined Tachycardia - S/p implantable loop recorder with tachycardia noted by [facility] Dr. Yunior Hernandez. s/p [employer] PPM. Observe off telemetry while patient remains in [facility] - K/mag replete, rates stable Plan Chronic stable conditions: COPD: Albuterol/duonebs PRN CXR repeat NEGATIVE, suspected 2nd to opiates and continued IS rec/encouraged and remains on ROOM AIR 97% DVT proph: Heparin SQ BID RESUMED per ok w/ surgery as had been placed on hold for OR last week however given bruising/possible hematoma vs other from heparin will place on HOLD for now. Dispo: Possible dc 09/21 low fiber diet/PO oxycodone and f/u surgery in 1 week pending blood counts/abdominal exam w/ ecchymosis/increased discomfort 7 days out from surgery. If further drop/worsened exam would consider repeating abdominal imaging for further eval to ensure no issues. Surgery messaged this morning to follow along given bleeding as not appears to have been seen 09/19 Admission and Anticipated Discharge Date Admission Date: September 06, 2024 Supervising Physician Co-Signing Physician Notes The patient was not seen by me. The chart was reviewed. Case discussed with VASILIY Wyatt. Agree with assessment and plan Subjective Evaluated this morning, has been ambulating the halls. Passing gas, has moved his bowels. NO fever/chills. Is on low fiber diet. Notable has been having his dressing changed every 2-5 hrs due to bleeding. Asked surgery to see today. Patient reports dressing was removed by surgery and never replaced and he laid there for over hour and a half without nursing coming back. Discussed heparin shots can cause bleeding however they have been avoiding his LEFT side and has smaller bruising appropriate from shots on the right. Is tender. Discussed continued ambulation but HOLDING heparin and monitoring counts/pain but consideration for hematoma vs bleeding from surgery and would rather monitor overnight/counts/exam and if improving/stable can plan for dc but will continue to monitor for now. Physical Exam 2 Physical Exam: General: 64yo male sitting up at side of the bed, NAD but increased bruising/discomfort to LLQ HEENT: head atraumatic, normocephalic, mm improved, trachea midline Resp: CTA, slightly diminished in the bases (improved) but no w/c/r, on ROOM AIR 97% CV: RRR, +systolic murmur, no pitting edema/calf tenderness, pulses present GI: +BS +tenderness to incisions, dressing c/d/i (just changed by nursing, no shadowing but reportedly changed q2-5hr depending), scattered small brusiing on the right from Heparin SQ but increased ecchymosis to LLQ staple/incision site (no active drainage/cellulitis), no overt guarding/rigidity but is distended no root MSK/Neuro: nonfocal, answering questions appropriately, not confused Psych: AOx3, cooperative with exam Results & Data Results & Data Vital Signs (Past 12 Hours) Vital Signs Temp Pulse Resp BP Pulse Ox O2 Del Method 09/20/24 07:36 Room Air 09/20/24 07:10 36.6 C 73 16 103/55 L 92 Room Air Laboratory Results 09/19/24 05:21 09/20/24 06:57 PG Care Time/CCT Total # of Minutes Spent Total Time Spent with Patient: Total time spent is greater than 50% in coordination of care (as documented) at patient's floor/unit and/or counseling patient: Coding Level of Care Code 10285 SUB INP/OBS CARE 3/50MIN Diagnoses Small bowel obstruction K56.609 Primary hypertension I10 Hypertension type: primary hypertension CAD in [place] artery I25.10 (2) Hypertension Hypertension type: primary hypertension Qualified Code(s): I10 - Essential (primary) hypertension
--- NOTE | 2024-09-20 09:15 | Surgery Progress Note ---
Date of Service September 20, 2024 Assessment & Plan (1) S/P small bowel resection: Plan: POD#8 taking po well incision OK ambulate slow progress Admission and Anticipated Discharge Date Admission Date: September 06, 2024 Subjective pain controlled taking po ambulating bloody drainage midline wound Review of Systems Constitutional: no fever and no chills Respiratory: no cough and no dyspnea Cardiovascular: no chest pain Gastrointestinal: + abdominal pain; no nausea, no vomiting and no change in bowel habits Genitourinary: no dysuria Neurologic: no localized weakness Psychiatric: no behavioral changes Hematologic / Lymphatic: + easy bleeding and + easy bruising Physical Exam Constitutional: WD/WN, vitals as above Respiratory: normal respiratory effort, lungs clear to auscultation Cardiovascular: RRR, no murmur, no edema Gastrointestinal (Abdomen): Inspection/Auscultation: abdomen normal to inspection, + abdomen distended, normal bowel sounds and + abdominal surgical incision (serous bloody drainage; reactive erythema) Musculoskeletal: Head/Neck/Chest: normocephalic and head atraumatic Skin: no rashes, warm and dry Results & Data Vital Signs (Past 12 Hours) Vital Signs Temp Pulse Resp BP BP Pulse Ox O2 Del Method 09/20/24 08:29 73 17 106/65 97 Room Air 09/20/24 07:36 Room Air 09/20/24 07:10 36.6 C 73 16 103/55 L 92 Room Air
[2024-09-20 12:44] LABS: Hematocrit (blood only) 36.4 % (42.0-52.0); Hemoglobin 11.7 g/dl (14.0-18.0); Mean Corpuscular Hemoglobin 30.4 pg (25.0-34.0); Mean Corpuscular Hgb Conc 32.1 g/dL (32.0-36.0); Mean Corpuscular Volume 94.5 fL (80.0-100.0); Mean Platelet Volume 10.7 fL (9.4-12.4); Platelet Count 320 K/uL (130-400); RDW Standard Deviation 44.6 fL (36.4-46.3); Red Blood Count 3.85 M/uL (4.70-6.10); White Blood Count 9.66 K/ul (4.8-10.8)
[2024-09-21 07:07] LABS: Basophils # (auto) 0.04 K/uL (0.00-0.20); Basophils % (auto) 0.4 %; Eosinophils # (auto) 0.29 K/uL (0.00-0.50); Hemoglobin 12.2 g/dl (14.0-18.0); Immature Granulocytes # (auto) 0.05 K/uL (0.01-0.20); Immature Granulocytes % (auto) 0.5 %; Lymphocytes # (auto) 1.39 K/uL (1.20-3.40); Lymphocytes % (auto) 14.5 %; Mean Corpuscular Hemoglobin 30.1 pg (25.0-34.0); Mean Corpuscular Hgb Conc 32.1 g/dL (32.0-36.0); Mean Corpuscular Volume 93.8 fL (80.0-100.0); Mean Platelet Volume 10.3 fL (9.4-12.4); Monocytes # (auto) 1.33 K/uL (0.11-0.59); Monocytes % (auto) 13.9 %; Neutrophils % (auto) 67.7 %; Platelet Count 358 K/uL (130-400); RDW Coefficient of Variation 12.9 % (11.5-14.5); RDW Standard Deviation 44.2 fL (36.4-46.3); Red Blood Count 4.05 M/uL (4.70-6.10)
[2024-09-21 07:24] LABS: BUN Creatinine Ratio 15.7 (10-20); Calcium 8.4 mg/dl (8.6-10.3); Creatinine Clr Calc Pharmacy 81.8 ml/min; Magnesium 1.9 mg/dl (1.7-2.4); Potassium 4.3 mmol/L (3.5-5.1)
--- NOTE | 2024-09-21 09:42 | Surgery Progress Note ---
Date of Service September 21, 2024 Assessment & Plan (1) Recurrent ventral hernia: Plan: wound opened partially packing dressings begin zosyn; likely will need a few days of IV abx Admission and Anticipated Discharge Date Admission Date: September 06, 2024 Subjective increased wound pain and redness local infection Review of Systems Constitutional: no fever and no chills Respiratory: no cough and no dyspnea Cardiovascular: no chest pain Gastrointestinal: + abdominal pain; no nausea and no vomit ing Physical Exam Gastrointestinal (Abdomen): Inspection/Auscultation: abdomen normal to inspection, normal bowel sounds and + abdominal surgical incision (wound infect ion- few joan removed and wound drained; cellulitis); abdomen not distended Percussion/Palpation: + abdomen tender and abdomen soft; no guarding and abdomen not rigid Results & Data Vital Signs (Past 12 Hours) Vital Signs Temp Pulse Resp BP Pulse Ox O2 Del Method 09/21/24 07:30 36.8 C 66 16 102/59 L 93 Room Air
[2024-09-21] MEDS: OPTIRAY 320 100ml IV ONE (10:28)
--- NOTE | 2024-09-21 11:03 | CT Scan Report ---
EXAM: CT Abdomen and Pelvis With Intravenous Contrast INDICATION: Abdominal pain. TECHNIQUE: Axial computed tomography images of the abdomen and pelvis with intravenous contrast. Sagittal and coronal reformatted images were created and reviewed. This CT exam was performed using one or more of the following dose reduction techniques: automated exposure control, adjustment of the mA and/or kV according to patient size, and/or use of iterative reconstruction technique. CONTRAST: 94ml of Optiray 320 was administered intravenously. COMPARISON: No relevant prior studies available. FINDINGS: Limitations: None. Lung bases: No abnormality noted. Pleural space: No visualized pleural effusion or pneumothorax. Heart: No abnormality noted. Mediastinum: No abnormality noted. ABDOMEN: Liver: No abnormality noted. Gallbladder and bile ducts: No calcified stones or surrounding fluid. Pancreas: Homogeneous enhancement. No mass, inflammation or ductal dilation. Spleen: No significant abnormality noted. Adrenals: No significant abnormality noted. Kidneys and ureters: Simple left renal cyst/s. No simple cyst follow-up necessary. Right kidney appears normal. No renal stone, hydronephrosis or perinephric fluid. Stomach and bowel: Moderate to large amounts of diffuse colonic stool. No obstruction. Transverse colon resection staple line noted without surrounding fluid or edema. PELVIS: Appendix: No findings to suggest acute appendicitis. Bladder: Incompletely distended and not optimally assessed. No gas or stone. Reproductive: Central prostate calcification noted. ABDOMEN and PELVIS: Intraperitoneal space: Trace fluid in the pelvis. No intraperitoneal abscess. No free air. Bones/joints: No acute changes. Soft tissues: Midline laparotomy wound induration noted. There is a left paramedian preperitoneal fluid collection measuring 5.6 cm transverse by 2.8 cm AP by 5.6 cm long. Vasculature: Atherosclerotic calcification of the aorta and branches. No aneurysm. Lymph nodes: No pathologically enlarged lymph nodes. IMPRESSION: Induration of the subcutaneous tissues at the laparotomy wound. There is a preperitoneal left paramedian fluid collection at the level of the wound which could reflect a developing abscess. ACT 112: Negative or not required by law. Electronically signed by Xiomara Perez 09-21-2024 11:02 AM
--- NOTE | 2024-09-21 11:32 | Hospitalist Progress Note ---
Date of Service September 21, 2024 Assessment & Plan (1) Small bowel obstruction: Plan: Status post exploratory laparotomy with relief of small bowel obstruction on September 12. Postoperative day #9. Appreciate general surgery consultation and recommendations. (2) Postoperative wound infection: Plan: Now on Zosyn, day 1. Abdomen CT scan was repeated today, September 21. Local care. (3) Hypertension: Plan: Stable. Remains on metoprolol 25mg HS. Amlodipine/lisinopril are on hold. (4) CAD in [place] artery: Plan: S/p acute NSTEMI (2016) with non-obstructive CAD in LAD. Stable. Continue current medical management with statin/metoprolol/ aspirin. (5) COPD (chronic obstructive pulmonary disease): Plan: Stable. Continue current medical management Plan Anticipate eventual discharge back to home Admission and Anticipated Discharge Date Admission Date: September 06, 2024 Subjective It appears the patient has developed a postoperative abdominal wound infection. CT scan was repeated today, September 21, and results were reviewed. He has been seen by general surgery today, September 21. He is now on intravenous Zosyn, day 1. Postoperative day 9 after exploratory laparotomy with release of small bowel obstruction. Review of Systems 2 Review of Systems: Constitutionalno fever or chills ENTno blurred vision, no double vision, no epistaxis, no sore throat Respiratoryno cough, no wheezing, no shortness of breath Cardiacno palpitations, no chest pain, no syncope Mikey nausea, vomiting, diarrhea, melena, hematochezia GUno urinary retention, no urinary incontinence, no dysuria, no hematuria Musculoskeletalno joint pain, no muscle tenderness Skinno bruising, no rashes, no pruritus Neurono isolated weakness, no paresthesia, no weakness Psychno depression, no anxiety Physical Exam 2 Physical Exam: General-alert and oriented x3, no fever, no chills HEENT-head atraumatic and normocephalic, pupils equal and reactive to light, extraocular muscles intact Neck-no lymphadenopathy or thyromegaly, trachea midline Chest-clear to auscultation. No rales, wheezing or rhonchi Cardiac-regular rate and rhythm, normal S1 and S2 Abdomen-normal bowel sounds, no hepatosplenomegaly. Distended. Some serosanguineous drainage noted on the abdominal wound bandage. Ecchymoses noted at left lower quadrant laparoscopic site. Extremities-no cyanosis, clubbing, or edema Neuro-cranial nerves II through XII intact, motor and sensory function within normal limits, strength symmetrical, no focal deficits Psych-normal affect, normal mood Results & Data Results & Data Vital Signs (Past 12 Hours) Vital Signs Temp Pulse Resp BP Pulse Ox O2 Del Method 09/21/24 07:30 36.8 C 66 16 102/59 L 93 Room Air Laboratory Results 09/21/24 06:02 09/21/24 06:02 PG Care Time/CCT Total # of Minutes Spent Total Time Spent with Patient: Total time spent is greater than 50% in coordination of care (as documented) at patient's floor/unit and/or counseling patient: Coding Level of Care Code 10501 SUB INP/OBS CARE 3/50MIN Diagnoses Small bowel obstruction K56.609 Postoperative wound infection T81.49XA Primary hypertension I10 Hypertension type: primary hypertension CAD in [place] artery I25.10 COPD (chronic obstructive pulmonary disease) J44.9 (3) Hypertension Hypertension type: primary hypertension Qualified Code(s): I10 - Essential (primary) hypertension
[2024-09-21] MEDS: PIPERACILLIN/TAZOBACTAM 4.5 GM/100 ML BAG IV SCH (12:08)
[2024-09-22] MEDS ORDERED: Nursing to Pharmacy Communication SCH (00:30)
[2024-09-22 06:55] VITALS: RESP 16
[2024-09-22 06:58] LABS: Basophils # (auto) 0.04 K/uL (0.00-0.20); Basophils % (auto) 0.5 %; Eosinophils % (auto) 3.8 %; Hematocrit (blood only) 34.5 % (42.0-52.0); Hemoglobin 11.1 g/dl (14.0-18.0); Immature Granulocytes # (auto) 0.03 K/uL (0.01-0.20); Immature Granulocytes % (auto) 0.4 %; Lymphocytes # (auto) 1.19 K/uL (1.20-3.40); Lymphocytes % (auto) 15.1 %; Mean Corpuscular Hemoglobin 30.1 pg (25.0-34.0); Mean Corpuscular Hgb Conc 32.2 g/dL (32.0-36.0); Mean Corpuscular Volume 93.5 fL (80.0-100.0); Mean Platelet Volume 10.1 fL (9.4-12.4); Monocytes # (auto) 1.03 K/uL (0.11-0.59); Monocytes % (auto) 13.1 %; Neutrophils # (auto) 5.28 K/uL (1.40-6.50); Neutrophils % (auto) 67.1 %; Platelet Count 336 K/uL (130-400); RDW Standard Deviation 44.5 fL (36.4-46.3); Red Blood Count 3.69 M/uL (4.70-6.10); White Blood Count 7.87 K/ul (4.8-10.8)
[2024-09-22 07:15] LABS: BUN Creatinine Ratio 16.8 (10-20); Calcium 8.1 mg/dl (8.6-10.3); Creatinine Clr Calc Pharmacy 75.1 ml/min; Potassium 3.9 mmol/L (3.5-5.1)
--- NOTE | 2024-09-22 10:18 | Surgery Progress Note ---
Date of Service September 22, 2024 Assessment & Plan (1) Postoperative wound infection: Plan: improving con't IV abx progress Admission and Anticipated Discharge Date Admission Date: September 06, 2024 Subjective feels a little better erythema improving afebrile Review of Systems Constitutional: no fever and no chills Respiratory: no cough and no dyspnea Cardiovascular: no chest pain Gastrointestinal: + abdominal pain; no nausea and no vomit ing Neurologic: no localized weakness Psychiatric: no behavioral changes Physical Exam Respiratory: normal respiratory effort, lungs clear to auscultation Cardiovascular: RRR, no murmur, no edema Gastrointestinal (Abdomen): Inspection/Auscultation: abdomen normal to inspection, normal bowel sounds and + abdominal surgical incision (opened at beside; cellulits improving; no further fluctuance); abdomen not distended Percussion/Palpation: abdomen soft Results & Data Vital Signs (Past 12 Hours) Vital Signs Temp Pulse Resp BP Pulse Ox O2 Del Method 09/22/24 06:53 36.6 C 73 16 94/52 L 94 Room Air Diagnostic Findings EXAM: CT Abdomen and Pelvis With Intravenous Contrast INDICATION: Abdominal pain. TECHNIQUE: Axial computed tomography images of the abdomen and pelvis with intravenous contrast. Sagittal and coronal reformatted images were created and reviewed. This CT exam was performed using one or more of the following dose reduction techniques: automated exposure control, adjustment of the mA and/or kV according to patient size, and/or use of iterative reconstruction technique. CONTRAST: 94ml of Optiray 320 was administered intravenously. COMPARISON: No relevant prior studies available. FINDINGS: Limitations: None. Lung bases: No abnormality noted. Pleural space: No visualized pleural effusion or pneumothorax. Heart: No abnormality noted. Mediastinum: No abnormality noted. ABDOMEN: Liver: No abnormality noted. Gallbladder and bile ducts: No calcified stones or surrounding fluid. Pancreas: Homogeneous enhancement. No mass, inflammation or ductal dilation. Spleen: No significant abnormality noted. Adrenals: No significant abnormality noted. Kidneys and ureters: Simple left renal cyst/s. No simple cyst follow-up necessary. Right kidney appears normal. No renal stone, hydronephrosis or perinephric fluid. Stomach and bowel: Moderate to large amounts of diffuse colonic stool. No obstruction. Transverse colon resection staple line noted without surrounding fluid or edema. PELVIS: Appendix: No findings to suggest acute appendicitis. Bladder: Incompletely distended and not optimally assessed. No gas or stone. Reproductive: Central prostate calcification noted. ABDOMEN and PELVIS: Intraperitoneal space: Trace fluid in the pelvis. No intraperitoneal abscess. No free air. Bones/joints: No acute changes. Soft tissues: Midline laparotomy wound induration noted. There is a left paramedian preperitoneal fluid collection measuring 5.6 cm transverse by 2.8 cm AP by 5.6 cm long. Vasculature: Atherosclerotic calcification of the aorta and branches. No aneurysm. Lymph nodes: No pathologically enlarged lymph nodes. IMPRESSION: Induration of the subcutaneous tissues at the laparotomy wound. There is a preperitoneal left paramedian fluid collection at the level of the wound which could reflect a developing abscess.
--- NOTE | 2024-09-22 14:53 | Hospitalist Progress Note ---
Date of Service September 22, 2024 Assessment & Plan (1) Small bowel obstruction: Plan: Status post exploratory laparotomy with relief of small bowel obstruction on September 12. Postoperative day #10. Appreciate general surgery consultation and recommendations. (2) Postoperative wound infection: Plan: Zosyn, day 2. Abdomen CT scan was repeated on September 21. Local care. He is now beginning to improve (3) Hypertension: Plan: Stable. Remains on metoprolol 25mg HS. Amlodipine/lisinopril are on hold. Will restart at discharge (4) CAD in [place] artery: Plan: S/p acute NSTEMI (2015) with non-obstructive CAD in LAD. Stable. Continue current medical management with statin/metoprolol/ aspirin. (5) COPD (chronic obstructive pulmonary disease): Plan: Stable. Continue current medical management Plan Anticipate eventual discharge back to home. Hopefully tomorrow, September 23, on an oral antibiotic Admission and Anticipated Discharge Date Admission Date: September 06, 2024 Subjective Alert and oriented. No new problems. Afebrile. He is now beginning to show some improvement with intravenous Zosyn, day 2. Surgery entry noted. Postop day #10 after exploratory laparotomy with release of small bowel obstruction. Hopefully he can go home within the next day or 2 on an oral antibiotic Review of Systems 2 Review of Systems: Constitutionalno fever or chills ENTno blurred vision, no double vision, no epistaxis, no sore throat Respiratoryno cough, no wheezing, no shortness of breath Cardiacno palpitations, no chest pain, no syncope Mikey nausea, vomiting, diarrhea, melena, hematochezia GUno urinary retention, no urinary incontinence, no dysuria, no hematuria Musculoskeletalno joint pain, no muscle tenderness Skinno bruising, no rashes, no pruritus Neurono isolated weakness, no paresthesia, no weakness Psychno depression, no anxiety Physical Exam 2 Physical Exam: General-alert and oriented x3, no fever, no chills HEENT-head atraumatic and normocephalic, pupils equal and reactive to light, extraocular muscles intact Neck-no lymphadenopathy or thyromegaly, trachea midline Chest-clear to auscultation. No rales, wheezing or rhonchi Cardiac-regular rate and rhythm, normal S1 and S2 Abdomen-normal bowel sounds, no hepatosplenomegaly. Distended. Some serosanguineous drainage noted on the abdominal wound bandage. Ecchymoses noted at left lower quadrant laparoscopic site. Extremities-no cyanosis, clubbing, or edema Neuro-cranial nerves II through XII intact, motor and sensory function within normal limits, strength symmetrical, no focal deficits Psych-normal affect, normal mood Results & Data Results & Data Vital Signs (Past 12 Hours) Vital Signs Temp Pulse Resp BP Pulse Ox O2 Del Method 09/22/24 06:53 36.6 C 73 16 94/52 L 94 Room Air Laboratory Results 09/22/24 06:23 09/22/24 06:23 PG Care Time/CCT Total # of Minutes Spent Total Time Spent with Patient: Total time spent is greater than 50% in coordination of care (as documented) at patient's floor/unit and/or counseling patient: Coding Level of Care Code 33847 SUB INP/OBS CARE 2/35MIN Diagnoses Small bowel obstruction K56.609 Postoperative wound infection T81.49XA Primary hypertension I10 Hypertension type: primary hypertension CAD in [place] artery I25.10 COPD (chronic obstructive pulmonary disease) J44.9 (3) Hypertension Hypertension type: primary hypertension Qualified Code(s): I10 - Essential (primary) hypertension
[2024-09-22] MEDS: INFLUENZA VACC TS2024-25(6m+)/PF (IIV3) 0.5mL Syr IM ONE (15:35)
[2024-09-23 07:03] LABS: Basophils # (auto) 0.06 K/uL (0.00-0.20); Basophils % (auto) 0.7 %; Eosinophils # (auto) 0.37 K/uL (0.00-0.50); Eosinophils % (auto) 4.2 %; Hematocrit (blood only) 34.7 % (42.0-52.0); Hemoglobin 11.3 g/dl (14.0-18.0); Immature Granulocytes # (auto) 0.06 K/uL (0.01-0.20); Immature Granulocytes % (auto) 0.7 %; Lymphocytes # (auto) 1.16 K/uL (1.20-3.40); Lymphocytes % (auto) 13.2 %; Mean Corpuscular Hemoglobin 30.5 pg (25.0-34.0); Mean Corpuscular Hgb Conc 32.6 g/dL (32.0-36.0); Mean Corpuscular Volume 93.8 fL (80.0-100.0); Mean Platelet Volume 10.2 fL (9.4-12.4); Monocytes # (auto) 0.91 K/uL (0.11-0.59); Monocytes % (auto) 10.3 %; Neutrophils # (auto) 6.26 K/uL (1.40-6.50); Neutrophils % (auto) 70.9 %; Platelet Count 357 K/uL (130-400); RDW Coefficient of Variation 13.2 % (11.5-14.5); RDW Standard Deviation 45.1 fL (36.4-46.3); White Blood Count 8.82 K/ul (4.8-10.8)
[2024-09-23 07:21] LABS: BUN Creatinine Ratio 13.1 (10-20); Calcium 8.2 mg/dl (8.6-10.3); Creatinine Clr Calc Pharmacy 73.2 ml/min; Potassium 4.1 mmol/L (3.5-5.1)
--- NOTE | 2024-09-23 15:53 | Surgery Progress Note ---
Date of Service September 23, 2024 Assessment & Plan (1) History of surgery: Plan: 09/12 Diagnostic Laparoscopy, Laparascopic Enterolysis, Explantation of Mesh, Conversion to Laparatomy, Small Bowel Resection, Repair of Recurrent Umbilical Hernia tolerating low fiber diet having BMs passing flatus vss , wbc wnl was started on zosyn for post operative infection a few joan removed yesterday and packed with gauze dressing removed repacked wound with clean dry gauze , abd pad and medipore tape will reach out to CM and see if patient can get home nursing to assist with dressing changes/packing upon d/c will need oral antibiotics on d/c pt seen and examined with Dr. Masters as above. can likely d/c tomorrow will need packing changes daily Admission and Anticipated Discharge Date Admission Date: September 06, 2024 Subjective pt reports pain is less than yesterday denies n/v , f/c Review of Systems Gastrointestinal: + abdominal pain; no nausea and no vomit ing Physical Exam Respiratory: normal respiratory effort; no respiratory distress Cardiovascular: Rate/Rhythm: regular rate Gastrointestinal (Abdomen): Inspection/Auscultation: + abdominal surgical incision (joan midline , open center) Percussion/Palpation: abdomen soft PG Care Time/CCT Total # of Minutes Spent Total Time Spent with Patient: Total time spent is greater than 50% in coordination of care (as documented) at patient's floor/unit and/or counseling patient: Coding Level of Care Code 82568 Post Operative Follow-Up Diagnoses History of surgery Z98.890
--- NOTE | 2024-09-23 16:38 | Hospitalist Progress Note ---
Date of Service September 23, 2024 Assessment & Plan (1) Small bowel obstruction: Plan: Presented with SBO and did not improve with conservative measures Now s/p exploratory laparotomy with lysis of adhesions and small bowel resection with mesh explantation and repair of umbilical hernia on September 12 Now with postoperative wound infection with small fluid collection seen on CT abdomen/pelvis on 09/21 Continue antibiotics, wound care as per surgery-packing in place Continue oxycodone as needed for pain Appreciate general surgery consultation and recommendations Tolerating diet-likely discharge to home tomorrow (2) Postoperative wound infection: Plan: As above, continue antibiotics and wound care as per surgery Afebrile, no leukocytosis (3) Hypertension: Plan: Blood pressures are controlled but with lower extremity edema likely from copious IV fluids throughout his hospital stay Give Lasix 20 Mg IV x 1 Continue on metoprolol 25mg HS and amlodipine lisinopril on hold (4) CAD in [place] artery: Plan: S/p acute NSTEMI (2015) with non-obstructive CAD in LAD. Stable. Continue current medical management with statin/Zetia/metoprolol/ aspirin No acute issues (5) COPD (chronic obstructive pulmonary disease): Plan: Stable. Continue bronchodilators as needed (6) Peripheral edema: Plan: Giving Lasix as above Plan DVT prophylaxis-add Lovenox SQ. He was on heparin SQ which has been held several days ago for some bleeding from the wound which is now improved Disposition-continued stay but hopeful for discharge to home tomorrow Admission and Anticipated Discharge Date Admission Date: September 06, 2024 Subjective Patient feeling well, tolerating low-fat diet. No abdominal pain, moving bowels. I discussed his care with the surgeon Patient has been ambulating around the halls frequently He has noticed his legs are swollen. Denies chest pains or shortness of breath Physical Exam Constitutional: WD/WN, vitals as above Respiratory: normal respiratory effort, lungs clear to auscultation Cardiovascular: Rate/Rhythm: regular rate and regular rhythm Heart Sounds: no murmur Extremities: + edema (2+ pitting edema of the legs to the knees bilaterally) Gastrointestinal (Abdomen): Inspection/Auscultation: + abdomen abnormal to inspection (Dressing over midline incision clean dry and intact, not removed) Psychiatric: A+Ox3, euthymic affect Results & Data Results & Data Laboratory Results CBC, BMP reviewed PG Care Time/CCT Total # of Minutes Spent Total Time Spent with Patient: Total time spent is greater than 50% in coordination of care (as documented) at patient's floor/unit and/or counseling patient: Coding Level of Care Code 90191 SUB INP/OBS CARE 2/35MIN Diagnoses Small bowel obstruction K56.609 Postoperative wound infection T81.49XA Primary hypertension I10 Hypertension type: primary hypertension CAD in [place] artery I25.10 COPD (chronic obstructive pulmonary disease) J44.9 Peripheral edema R60.0 (3) Hypertension Hypertension type: primary hypertension Qualified Code(s): I10 - Essential (primary) hypertension
[2024-09-23] MEDS: FUROSEMIDE INJ 20 MG/2 ML VIAL IV ONE (16:50)
[2024-09-23] MEDS: ENOXAPARIN INJ 40 MG/0.4 ML SYR SQ SCH (17:14)
[2024-09-24 06:47] LABS: Basophils # (auto) 0.07 K/uL (0.00-0.20); Basophils % (auto) 0.7 %; Eosinophils # (auto) 0.43 K/uL (0.00-0.50); Eosinophils % (auto) 4.3 %; Hematocrit (blood only) 38.4 % (42.0-52.0); Hemoglobin 12.4 g/dl (14.0-18.0); Immature Granulocytes # (auto) 0.05 K/uL (0.01-0.20); Immature Granulocytes % (auto) 0.5 %; Lymphocytes # (auto) 1.88 K/uL (1.20-3.40); Mean Corpuscular Hemoglobin 30.2 pg (25.0-34.0); Mean Corpuscular Hgb Conc 32.3 g/dL (32.0-36.0); Mean Corpuscular Volume 93.4 fL (80.0-100.0); Monocytes # (auto) 0.84 K/uL (0.11-0.59); Monocytes % (auto) 8.5 %; Neutrophils # (auto) 6.62 K/uL (1.40-6.50); Platelet Count 423 K/uL (130-400); RDW Standard Deviation 44.4 fL (36.4-46.3); Red Blood Count 4.11 M/uL (4.70-6.10); White Blood Count 9.89 K/ul (4.8-10.8)
[2024-09-24 06:58] LABS: BUN Creatinine Ratio 11.9 (10-20); Calcium 8.7 mg/dl (8.6-10.3); Creatinine Clr Calc Pharmacy 66.1 ml/min; Phosphorus 4.5 mg/dl (2.5-4.9)
[2024-09-24 07:45] VITALS: BP 110/67; PULSE 61; TEMP 97.9; O2SAT 94
--- NOTE | 2024-09-24 09:15 | Surgery Progress Note ---
Date of Service September 24, 2024 Assessment & Plan (1) History of surgery: Plan: 09/12 Diagnostic Laparoscopy, Laparascopic Enterolysis, Explantation of Mesh, Conversion to Laparatomy, Small Bowel Resection, Repair of Recurrent Umbilical Hernia tolerating low fiber diet having BMs passing flatus vss , wbc wnl Continue IV zosyn for post operative infection while inhouse nurse to go over dressing change with today CM setting up HH to assist on d/c with dressings will need course of oral antibiotics on d/c , stable for d/c today from gen surgical standpoint. Admission and Anticipated Discharge Date Admission Date: September 06, 2024 Subjective patient hopeful for d/c today denies n/v , f/c Review of Systems Constitutional: no fever and no chills Respiratory: no dyspnea Cardiovascular: no chest pain Gastrointestinal: + abdominal pain (discomfort ); no nause a and no vomiting Psychiatric: no confusion Physical Exam Constitutional: cooperative; no acute distress Respiratory: normal respiratory effort; no respiratory distress Cardiovascular: Rate/Rhythm: regular rate Gastrointestinal (Abdomen): Inspection/Auscultation: + abdominal surgical incision (joan midline , open center) Psychiatric: A+Ox3, euthymic affect Results & Data Vital Signs (Past 12 Hours) Vital Signs Temp Pulse Resp BP Pulse Ox O2 Del Method 09/24/24 07:54 Room Air 09/24/24 07:44 97.9 F 61 16 110/67 94 Room Air Results CBC w Diff Results: RBC 4.11 M/uL (4.70-6.10) L 09/24/24 WBC 9.89 K/ul (4.8-10.8) 09/24/24 Hgb 12.4 g/dl (14.0-18.0) L 09/24/24 Hct 38.4 % (42.0-52.0) L 09/24/24 MCV 93.4 fL (80.0-100.0) 09/24/24 MCH 30.2 pg (25.0-34.0) 09/24/24 MCHC 32.3 g/dL (32.0-36.0) 09/24/24 RDW Standard Deviation 44.4 fL (36.4-46.3) 09/24/24 RDW Coefficient of Variation 13.0 % (11.5-14.5) 09/24/24 Plt Count 423 K/uL (130-400) H 09/24/24 MPV 10.0 fL (9.4-12.4) 09/24/24 Neutrophils (%) (Auto) 67.0 % 09/24/24 Lymphocytes (%) (Auto) 19.0 % 09/24/24 Monocytes # (Auto) 0.84 K/uL (0.11-0.59) H 09/24/24 Eosinophils # (Auto) 0.43 K/uL (0.00-0.50) 09/24/24 Immature Granulocyte % (Auto) 0.5 % 09/24/24 Neutrophils # (Auto) 6.62 K/uL (1.40-6.50) H 09/24/24 Lymphocytes # (Auto) 1.88 K/uL (1.20-3.40) 09/24/24 Monocytes # (Auto) 0.84 K/uL (0.11-0.59) H 09/24/24 Eosinophils # (Auto) 0.43 K/uL (0.00-0.50) 09/24/24 Basophils # (Auto) 0.07 K/uL (0.00-0.20) 09/24/24 Immature Granulocyte # (Auto) 0.05 K/uL (0.01-0.20) 4 PG Care Time/CCT Total # of Minutes Spent Total Time Spent with Patient: Total time spent is greater than 50% in coordination of care (as documented) at patient's floor/unit and/or counseling patient: Coding Level of Care Code 69063 Post Operative Follow-Up Diagnoses History of surgery Z98.890
--- NOTE | 2024-09-24 11:52 | Discharge Summary ---
Discharge Summary Date of Service September 24, 2024 Principal Dx & Hospital Course #1 = Principal Diagnosis (1) Small bowel obstruction: Presented with SBO and did not improve with conservative measures Now s/p exploratory laparotomy with lysis of adhesions and small bowel resection with mesh explantation and repair of umbilical hernia on September 12 He then developed a postoperative wound infection with small fluid collection seen on CT abdomen/pelvis on 09/21 Continue antibiotics, wound care as per surgery-packing in place for drainage from the wound and a few joan were removed surgeon-Daily dressing changes with packing to take place at home by home health as well as his Continue oxycodone and Tylenol as needed for pain Appreciate general surgery consultation and recommendations Tolerating diet Follow-up with surgery in 1 week (2) Postoperative wound infection: As above, continue antibiotics and wound care as per surgery Afebrile, no leukocytosis (3) Hypertension: Blood pressures are controlled but with lower extremity edema likely from copious IV fluids throughout his hospital stay Gave Lasix 20 Mg IV x 1 on 09/23 and with significant improvement-still some trace pitting edema on discharge of the legs Continue on metoprolol 25mg HS and amlodipine lisinopril on hold and should remain on hold until seen by PCP due to normal blood pressures and mild rising creatinine to 1.5 after being given IV Lasix (4) CAD in [place] artery: S/p acute NSTEMI (2016) with non-obstructive CAD in LAD. Stable. Continue current medical management with statin/Zetia/metoprolol/ aspirin No acute issues (5) COPD (chronic obstructive pulmonary disease): Stable. Continue bronchodilators as needed (6) Peripheral edema: Gave Lasix as above and improving Plan DVT prophylaxis- Lovenox SQ. Disposition-stable for discharge to home with home health Notes For Next Care Provider Resume lisinopril after PCP follow-up appointment if renal function improved and blood pressures can tolerate Medication Changes From Visit Added Augmentin 875/125 mg p.o. twice daily x 10 more days Holding lisinopril Admission HPI Per Admitting Provider 64-year-old male presenting for abdominal pain. ED course: CBC- WBC 14.51, neutrophil predominant (11.33); BMP grossly WNL, glucose 122; UA 1+ protein and trace ketones, no evidence of bacteria.; CTAP interval development is partial small bowel obstruction with transition site within the anterior mid abdomen (may be on basis of adhesions), stable postoperative findings following recent umbilical hernia repair with mesh, stable stranding and small amount of fluid, small fat-containing abdominal wall defect which is unchanged, +/- residual sm all hernia.; EKG normal sinus with LAFB, rate 97. Provided with 1L NSS, ondansetron, morphine in ED. Patient 74-year-old male PMHx abdominal hernia with recent surgical intervention, hypertension, hyperlipidemia, GERD, and COPD presenting for abdominal pain. Patient states that the pain has been been ongoing since his previous surgical intervention, however, 09/01 patient noted an increase in his pain. He was evaluated in ED 09/02 for abdominal pain and was discharged home. The night of 09/05, with the pain, the worst has been and is starting statin medication was unable to be considered. States that he has had multiple episodes of nausea and vomiting multiple times a day starting around 2 to 3 days ago. Notes that the emesis is yellowish in color, and he feels as though he is feeling uncomfortable with that but when he vomits. Has been unable to tolerate food, fluids, or medications. Did have an episode of shortness of breath the day of arrival where he was at his primary care visit had an episode of wheezing which was managed by nebulizer. Continues to have generalized abdominal pain during visit today. Overall denying chest pain, palpitations, diarrhea/constipation, numbness/tingling, or LUTS. States he took a.m. medications but threw up. Most recent episode of emesis was 1000 the day of arrival. Has been utilizing oxycodone as needed for pain, but has not improved his symptoms. Please see Dr. Goyal's attestation for adjustments/additions to treatment plan. Discharge Exam Constitutional WD/WN, vitals as above Respiratory normal respiratory effort, lungs clear to auscultation Cardiovascular Rate/Rhythm: regular rate and regular rhythm Heart Sounds: no murmur Extremities: + edema (Trace pitting edema of the legs to the knees bilaterally) Gastrointestinal (Abdomen) Inspection/Auscultation: + abdomen abnormal to inspection (Dressing over midline incision with faint dried serosanguineous fluid, not ) With 2 incisions left side of abdomen with 2 joan each, no drainage or erythema Psychiatric A+Ox3, euthymic affect Discharge Plan Discharge Items Patient Disposition: Home - Home Health Services Reason For Visit: SBO Discharge Diagnosis: Small bowel obstruction now status post lysis of adhesions, explantation of mesh, exploratory laparotomy, small bowel resection, repair of recurrent umbilical hernia Postop wound infection Condition on Discharge: Good Activity: Per Instructions section Lifting: No more than 10 pounds Bathing Comment: may shower; no soaking in tubs/pools x 2 weeks Exercise/Sports: Wait until after follow-up appointment Driving/Machine Use: no driving while taking narcotics for pain Non-emergency contact: Primary Care Provider and Surgeon Call non-emergency contact if: you have any medication questions, your pain is not controlled, you have a fever, your temperature is above 101.5, your wound has increased redness, your wound has increased drainage and your wound pain has increased Follow-up/Referrals: Lino Llamas DO [Physician] - (Please call to schedule follow up in clinic in 1 week.) Dannielle Charles MD [Primary Care Provider] - (Follow-up within 1 to 2 weeks.) Diet: Low Fiber Addtl Attending Provider Instructions: Please continue taking the antibiotics twice a day for 10 more days for your wound infection. Continue daily dressing changes with packing as demonstrated for you by the nurse. Home health will also be coming to visit with you. SPECIAL CARE INSTRUCTIONS: * You have surgical joan that will be removed at one of your follow up appointments (about 14 days from surgical date) * You may shower . NO soaking in pools or baths for 2 weeks * No lifting greater than 10lbs. No strenuous exercise until cleared by surgeon. Light walking is accepted. * No driving while taking narcotic pain medication; wait at least 3 days * No drinking alcohol while taking narcotic pain medication * May use Ibuprofen/Tylenol over the counter for pain as tolerated. Do not exc eed 3grams of Tylenol per 24 hours * Expect some swelling and bruising. * Diet- you may resume your regular diet Call your doctor if: * Temperature above 101 degrees, nausea/vomiting, fever/chills * Pain not relieved by pain medicine ordered * There is increased drainage or redness from any incision * You have any unanswered questions or concerns [phone]. FOLLOW UP VISIT: If not already scheduled, please call the office for a follow-up visit. Office Pending Studies at Discharge: No Stand-Alone Forms: My [facility], Smoking Cessation Medications and DC Order Prescriptions: New oxycodone 5 mg tablet 5 - 10 mg PO .[id number] PRN (Reason: pain, for initial therapy, max 6 tabs per day) Qty: 15 0RF docusate sodium 100 mg Capsule 100 mg PO BID Qty: 60 0RF Rx Instructions: [id number] amoxicillin-pot clavulanate 875-125 mg tablet 1 tab PO BID Qty: 20 0RF Continued metoprolol succinate 25 mg tablet extended release 24 hr 25 mg PO HS Qty: 90 3RF albuterol sulfate 90 mcg/actuation HFA aerosol inhaler 1 inh inhalation QID PRN (Reason: shortness of breath or wheezing) Qty: 8.5 5RF aspirin 81 mg tablet,delayed release (DR/EC) 81 mg PO QAM amlodipine 5 mg tablet 5 mg PO QAM pantoprazole 40 mg tablet,delayed release (DR/EC) 40 mg PO BID ezetimibe 10 mg tablet 10 mg PO QPM atorvastatin 80 mg tablet 80 mg PO QPM Held lisinopril 40 mg tablet 40 mg PO QAM Hold Instructions: Resume on 10/01/24. Please hold off on resuming your lisinopril until after you are seen by your primary care physician. Your blood pressures have been normal Discontinued tramadol 50 mg tablet 50 mg PO QID PRN (Reason: pain) Qty: 120 0RF Hold Instructions: Resume on 08/19/24. hold until no longer taking oxycodone Rx Instructions: ongoing therapy Supervising physician: Dannielle Charles [facility] [id number] oxycodone 5 mg tablet 5 mg PO Q6H MDD 4 PRN (Reason: pain) 4 Days Qty: 14 0RF Discharge Orders: Discharge Order (Routine); Ordered 09/24/24 Ordered By: Shaunna Beasley Admission Data Admit Date/Time: 09/06/24 16:13 Attending Provider: Shaunna Beasley Admit Provider: Clark Goyal Primary Care Provider: Dannielle Charles Other Providers: Dianne Preston; Clark Goyal; [facility] F[facility] Hospital Stay Data Consultations 09/06/24 15:18 Consult General Surgery Routine 09/06/24 15:24 ED Decision to Admit Stat Procedures Performed Operation Date: 09/12/24 12:00 Actual Procedures p Diagnostic Laparoscopy, Laparascopic Enterolysis, Explantation of Mesh, Conversion to Laparatomy, Small Bowel Resection, Repair of Recurrent Umbilical Hernia(Not Applicable) - Lino Llamas, DO Diagnostic Imagining Performed 09/06/24 13:57 CT Abd and Pelvis [CT abd pelvis IV con only] Stat 09/21/24 09:53 CT Abd and Pelvis [CT abd pelvis IV con only] Urgent Pending Results Patient Have Any Pending Studies at Discharge: No Discharge Instructions Given to Patient (Per Discharging Provider) Please continue taking the antibiotics twice a day for 10 more days for your wound infection. Continue daily dressing changes with packing as demonstrated for you by the nurse. Home health will also be coming to visit with you. SPECIAL CARE INSTRUCTIONS: * You have surgical joan that will be removed at one of your follow up appointments (about 14 days from surgical date) * You may shower . NO soaking in pools or baths for 2 weeks * No lifting greater than 10lbs. No strenuous exercise until cleared by surgeon. Light walking is accepted. * No driving while taking narcotic pain medication; wait at least 3 days * No drinking alcohol while taking narcotic pain medication * May use Ibuprofen/Tylenol over the counter for pain as tolerated. Do not exceed 3grams of Tylenol per 24 hours * Expect some swelling and bruising. * Diet- you may resume your regular diet Call your doctor if: * Temperature above 101 degrees, nausea/vomiting, fever/chills * Pain not relieved by pain medicine ordered * There is increased drainage or redness from any incision * You have any unanswered questions or concerns [phone]. FOLLOW UP VISIT: If not already scheduled, please call the office for a follow-up visit. Office Total Time Total Time Spent Total Time Spent (In Minutes): 35 minutes Total Time Includes: Examination of the Patient, Discharge Planning, Medication Reconciliation and Communication With Other Providers ([facility] [employer]) Coding Level of Care Code 68573 INP/OBS DISCH >30 MIN Diagnoses Small bowel obstruction K56.609 Postoperative wound infection T81.49XA Primary hypertension I10 Hypertension type: primary hypertension CAD in [place] artery I25.10 COPD (chronic obstructive pulmonary disease) J44.9 Peripheral edema R60.0
== END 2024-09-24 14:15 | disposition home health service (06) | DRG 330 ==
LOC: ED 12:17 → SUATTDRO 16:13 → 3W 16:13